=== PATIENT | female | born 1950 | race Caucasian/White ===

== ENCOUNTER 2017-11-05 12:43 | Outpatient (CLI) | payer MEDICAID, MEDICARE ==
--- NOTE | 2017-11-05 16:26 | CT ---
CT ANGIOGRAM OF NECK: Date: 11/05/17 HISTORY: Evaluate for left carotid stenosis. TECHNIQUE: CT angiogram of neck is performed in the axial plane. Three dimensional reformatted images are submit jennifer for interpretation. FINDINGS: Visualized brain parenchyma is unremarkable. Adequate aeration of the mastoid air cells. Mild mucosal thickening of the ethmoid air cells. Aerodigestive tract is patent. No mucosal abnormality. Epiglottis has a normal caliber. Preepiglottic fat is preserved. Symmetric attenuation of the parotid and submandibular glands. Unremarkable thyroi d gland. Sternocleidomastoid muscles are unremarkable. There is scattered nonspecific, nonenlarged soft tissue neck lymph nodes. Cervical spine vertebral body height is maintained. No fracture. Grossly, the central pulmonary arter ies are unremarkable. There is a bovine arch. Right Carotid: The origin of the right carotid artery is unremarkable. The right common carotid doc ry has mild atherosclerotic disease. There is atherosclerosis involving the right carotid bifurcation and proximal internal carotid artery. Mild stenosis based upon NASCET criteria. There is focal promi nence of the distal cervical right internal carotid artery with dilatation and tortuous at the level of the C1 and C2 vertebral bodies. Left Carotid: Left carotid artery origin has appropriate enhancement and luminal diameter. Left comm on carotid artery demonstrates short segment mild atherosclerotic disease. There is calcified plaque in the left carotid bifurcation and proximal internal carotid artery. No evidence of significant sten osis based upon NASCET criteria. There is calcified plaque in the distal left cervical internal carot id artery. Calcified plaque at the origin of the left vertebral artery. No significant stenosis in either cervic al vertebral artery. Additional mid calcified plaque is noted in both proximal cervical vertebral art eries. IMPRESSION: Atherosclerosis involving both carotid arteries without hemodynamically significant stenosis based up on NASCET criteria. POS: [facility]
== END 2017-11-05 12:44 | disposition home or self-care (01) ==
LOC: CT 12:43
PROVIDERS: ATTEND Thoracic Surgery (Cardiothoracic Vascular Surgery)
DX: I65.23 Occlusion and stenosis of bilateral carotid arteries (principal)
CPT/HCPCS: 70498; 82565

== ENCOUNTER 2018-10-20 10:58 | Outpatient (CLI) | payer MEDICARE, MEDICAID ==
--- NOTE | 2018-10-20 11:12 | RAD ---
XR Chest Pa Lat STANDARD HISTORY: COPD COMPARISON: 04/25/2016 study FINDINGS: Heart size within normal limits there are atherosclerotic changes of aorta chronic lung brina nges are seen. There are arthritic changes spine IMPRESSION: Chronic lung change. Stable chest.
== END 2018-10-20 10:59 | disposition home or self-care (01) ==
LOC: BICRAD 10:58
PROVIDERS: ATTEND Internal Medicine
DX: J44.9 Chronic obstructive pulmonary disease, unspecified (principal)
CPT/HCPCS: 71046

== ENCOUNTER 2018-12-29 15:47 | Observation (INO) | payer MEDICAID, MEDICARE ==
[2018-12-29 16:24] LABS: #Basophils 0.1 thou/uL (0.0-0.2); #Eosinphils 0.2 thou/uL (0.0-0.7); #Lymphocytes 2.3 thou/uL (1.20-3.40); #Monocytes 0.8 thou/uL (0.11-0.59); %Lymphocytes 24.6 % (21.0-51.0); %Monocytes 8.3 % (0.0-10.0); %Neutrophils 64.1 % (42.0-75.0); Hemoglobin 14.1 g/dL (12.0-16.0); Mean Corpuscular HGB CONC 31.3 g/dL (32.0-36.0); Mean Corpuscular Hemoglobin 29.3 pg (27.0-31.0); Mean Corpuscular Volume 93.6 fL (78.0-98.0); Mean Platelet Volume 7.1 fL (7.4-10.4); Platelet Count 242 thou/uL (130-400); RBC Distribution Width 13.1 % (11.5-14.5); Red Blood Cell (RBC) Count 4.81 mill/uL (4.20-5.40); White Blood Cell (WBC) Count 9.3 thou/uL (4.8-10.8)
--- NOTE | 2018-12-29 16:31 | RAD ---
Chest AP view INDICATION: Increasing shortness of breath COMPARISON: None FINDINGS: Lungs:There is worsening bilateral interstitial lung marking Cardiac silhouette pulmonary vasculature:There is worsening cardiomegaly and mild pulmonary vascular congestion Pleural spaces:No pleural effusion or pneumothorax is demonstrated. Upper abdomen:No abnormality seen. Osseous structures: No acute osseous abnormality. Additional findings:None. IMPRESSION: Mild cardiomegaly with mild pulmonary vascular congestion and interstitial opacities are suspicious for mild CHF
[2018-12-29 16:43] LABS: ALT (SGPT) 13 U/L (8-55); AST (SGOT) 16 U/L (5-34); Alkaline Phosphatase 87 U/L (40-150); BUN (Urea Nitrogen) 10 mg/dL (9.8-20.1); Bilirubin, Total 0.2 mg/dL (0.2-1.2); CK (CPK) 117 U/L (29-168); Calc. Creatinine Clearance 0 mL/min (70-130); Calcium 9.4 mg/dL (7.8-10.44); Estimated GFR-MDRD 83; Globulin 3.6 g/dL (2.4-3.5); Glucose 119 mg/dL (80-115); Lipase 23 U/L (8-78); Protein, Total 7.6 g/dL (6.0-8.3)
[2018-12-29 16:53] LABS: Chloride 89 mmol/L (98-107); Potassium 3.1 mmol/L (3.5-5.1); Sodium 142 mmol/L (136-145)
[2018-12-29 16:55] LABS: Anion Gap 14 mmol/L (10-20)
[2018-12-29 16:58] LABS: Carbon Dioxide 42 mmol/L (23-31)
[2018-12-29] MEDS ORDERED: methylPREDNISolone Sod Succ/PF 125 MG/2 ML VIAL ONE (17:12)
[2018-12-29] MEDS ORDERED: Potassium Chloride 20 MEQ TAB ONE (17:12)
[2018-12-29 20:25] VITALS: BMI 29.2
[2018-12-29] MEDS ORDERED: hydrALAZINE 20 MG/ML VIAL SLOW IVP PRN (22:33)
[2018-12-29] MEDS ORDERED: Benzonatate 100 MG CAP PO PRN (22:33)
[2018-12-29] MEDS ORDERED: Ondansetron PF 4 MG/2 ML Vial IVP PRN (22:33)
[2018-12-29] MEDS ORDERED: Acetaminophen 500 MG TAB PO PRN (22:33)
[2018-12-29] MEDS ORDERED: Guaifenesin DM 100-10/5 ML UDCUP PO PRN (22:33)
[2018-12-29] MEDS ORDERED: Ondansetron ODT 4 MG TAB PO PRN (22:33)
[2018-12-29] MEDS ORDERED: HumaLOG 300 UNITS/3 ML VIAL SC PRN (22:34)
[2018-12-29] MEDS ORDERED: Dextrose 5% in Water 1,000 ML IV PRN (22:34)
[2018-12-29] MEDS ORDERED: Dextrose 50% Abboject 50 ML SYRINGE SLOW IVP PRN (22:34)
[2018-12-29] MEDS: methylPREDNISolone Sod Succ 40 MG VIAL IVP SCH (23:27)
--- NOTE | 2018-12-30 01:04 | HP ---
PRIMARY CARE PROVIDER: Jeremy Quinn MD CHIEF COMPLAINT: Shortness of breath. HISTORY OF PRESENT ILLNESS: This is a 68-year-old female, who presented to [facility] Emergency Department complaining of increased shortness of breath over the last several weeks, worsening in the last 2 to 3 days. The patient with longstanding history of chronic obstructive pulmonary disease with ongoing tobacco abuse up to two packs daily. The patient states she uses home oxygen at 3 L/minute by nasal cannula, as well as use of Symbicort and DuoNeb therapy with home nebulizer. The patient noted increased shortness of breath and difficulty ambulating for any distance, becoming increasingly short of breath, needing to stop and rest. The patient was admitted to [facility] in 2016 for similar presentation with COPD exacerbation. The patient continued to use her home regimen of bronchodilator therapy and oxygen without relief of symptoms. In the emergency room, the patient underwent general evaluation including chest imaging showing chronic changes bilaterally of the lung greenberg. The patient received IV Solu-Medrol, DuoNeb, as well as potassium chloride. PAST MEDICAL HISTORY: 1. Chronic obstructive pulmonary disease. 2. Chronic hypoxic respiratory failure with home oxygen at 3 L/minute by nasal cannula. 3. Diastolic heart failure with ejection fraction of 60% to 65%. 4. Tobacco abuse ongoing. 5. Hypertension. 6. Diabetes mellitus, type 2. PAST SURGICAL HISTORY: Status post tracheostomy. CURRENT MEDICATIONS: Current medications based on previous admission and review of electronic medical record: 1. ProAir HFA 2 puffs inhaled q.6 hours p.r.n. 2. Symbicort 160/4.5 two puffs inhaled b.i.d. 3. Coreg 6.25 mg p.o. b.i.d. 4. Lasix 40 mg p.o. daily. 5. Mucinex ER 600 mg p.o. b.i.d. 6. Atrovent 2 puffs inhaled q.i.d. p.r.n. 7. Lisinopril 10 mg p.o. daily. 8. Metformin 1000 mg p.o. b.i.d. 9. Aspirin 81 mg p.o. daily. 10. Amlodipine 10 mg p.o. daily. List will need to be confirmed with the patient. ALLERGIES: TO ASPIRIN, CODEINE, AND PENICILLIN G. FAMILY HISTORY: No inheritable disease per patient report. SOCIAL HISTORY: Resides in [place], [place]. . Smokes up to two pack of cigarettes daily, greater than 30 years. No alcohol or illicit drug use. REVIEW OF SYSTEMS: CONSTITUTIONAL: Negative for weight loss or gain, ability to conduct usual activities. SKIN: Negative for rash, itching. EYES: Negative for double vision, pain. ENT/MOUTH: Negative for nose bleeding, neck stiffness, pain, tenderness. CARDIOVASCULAR: Negative for palpitations, dyspnea on exertion, orthopnea. RESPIRATORY: Negative for shortness of breath, wheezing, cough, hemoptysis, fever or night sweats. GASTROINTESTINAL: Negative for poor appetite, abdominal pain, heartburn, nausea, vomiting, constipation, or diarrhea. GENITOURINARY: Negative for urgency, frequency, dysuria, nocturia. MUSCULOSKELETAL: Negative for pain, swelling. NEUROLOGIC/PSYCHIATRIC: Negative for anxiety, depression. ALLERGY/IMMUNOLOGIC: Negative for skin rash, bleeding tendency. Otherwise negative except as stated per HPI. PHYSICAL EXAMINATION: VITAL SIGNS: On admission, blood pressure 161/80, pulse 92, respiratory rate 18, O2 saturation 97% on 4 L/minute by nasal cannula. GENERAL APPEARANCE: This is a 68-year-old female, alert and oriented x3, pleasant, in no acute distress. HEENT: Pupils are equal, round, reactive to light and accommodation. Extraocular muscles are intact. No scleral icterus. No conjunctival injection. Nares patent. OP is clear. Teeth in fair repair. Nicotine stained teeth noted. NECK: Supple. No cervical adenopathy. No thyromegaly. No carotid bruits. No JVD appreciated. Cervical spine with full active and passive range of motion. No meningeal signs noted. CHEST: Diminished breath sounds in bilateral lung greenberg with inspiratory and expiratory wheezing. Prolonged expiratory phase noted. CARDIOVASCULAR EXAM: S1-S2 with distant heart sounds. No murmur, rub, or gallop appreciated. ABDOMEN: Obese, soft, nontender, and nondistended. Bowel sounds are positive in all 4 quadrants. No palpable mass. No rebound or guarding appreciated. EXTREMITIES: Warm and dry with fair turgor. Minimal edema to the ankle region bilaterally. Pulses palpable distally at the dorsalis pedis, posterior tibial, and popliteal arteries bilaterally. Capillary refill less than 2 seconds. NEUROLOGIC: Cranial nerves 2 through 12 are grossly intact. No focal or lateralizing signs appreciated. PERTINENT LAB AND X-RAY FINDINGS: Sodium 142, potassium 3.1, chloride 89, CO2 of 42, BUN 10, creatinine 0.70, glucose 119, calcium 9.4. LFTs within normal limits. BNP 114, previously noted 188 on 04/25/2016. Troponin I negative x1. CBC showed a white blood cell count of 9.3, hemoglobin 14, hematocrit 45, platelet count 242 with normal differential. Portable chest x-ray dated 12/29/2018, showed mild pulmonary vascular prominence with chronic changes in bilateral lung greenberg. EKG dated 12/29/2018 by my interpretation shows heart rates in the 100s. Attenuated R-waves noted in the precordial leads. Premature ventricular contractions noted. Left axis deviation. ASSESSMENT AND PLAN: 1. Acute on chronic hypoxemic respiratory failure. The patient will be admitted to the medical floor. The patient's presentation consistent with chronic obstructive pulmonary disease exacerbation. We will continue oxygen support to maintain O2 saturation greater than or equal to 90%. Continue management as outlined. 2. Chronic obstructive pulmonary disease exacerbation. Continue Solu-Medrol 40 mg IV q.6 hours with additional DuoNeb q.4 hours. Add Levaquin 750 mg IV q.24 hours. Resume Symbicort 160/4.5 two puffs inhaled b.i.d. 3. Tobacco abuse. Smoking cessation resources prior to discharge. 4. Diabetes mellitus type 2. Confirm home oral hypoglycemic regimen. Insulin sliding scale for reflexive coverage. Serial Accu-Cheks before meals and at bedtime. 5. Hypertension. Resume home blood pressure regimen once confirmed. Hydralazine p.r.n. systolic greater than or equal to 170. 6. Prophylaxis. SCDs while in bed. Pepcid 20 mg p.o. b.i.d. Pneumonia vaccination prior to discharge. 7. Code status is full. Surrogate medical decision maker is the patient's spouse. Job ID: [id number]
[2018-12-30] MEDS: HumaLOG 300 UNITS/3 ML VIAL SC PRN ×3 (05:02→18:04)
[2018-12-30] MEDS: methylPREDNISolone Sod Succ 40 MG VIAL IVP SCH ×3 (05:03→18:04)
[2018-12-30 05:41] LABS: Anion Gap 12 mmol/L (10-20); BUN (Urea Nitrogen) 10 mg/dL (9.8-20.1); Calc. Creatinine Clearance 102 mL/min (70-130); Calcium 9.1 mg/dL (7.8-10.44); Carbon Dioxide 34 mmol/L (23-31); Chloride 95 mmol/L (98-107); Estimated GFR-MDRD Greater than 90; Glucose 158 mg/dL (80-115); Potassium 4.1 mmol/L (3.5-5.1); Sodium 137 mmol/L (136-145)
[2018-12-30 05:54] LABS: Band 2 % (5-11); Hemoglobin 13.7 g/dL (12.0-16.0); Hypochromia SLIGHT = 6-15 cells (100X) (0-5/hpf); Lymphocytes 10 % (21-51); MDiff Complete? YES; Mean Corpuscular HGB CONC 29.8 g/dL (32.0-36.0); Mean Corpuscular Hemoglobin 27.9 pg (27.0-31.0); Mean Corpuscular Volume 93.7 fL (78.0-98.0); Mean Platelet Volume 7.5 fL (7.4-10.4); Monocytes 3 % (0-10); Neutrophil 85 % (42-75); Platelet Count 217 thou/uL (130-400); Platelet Morphology Comment Appears Adequate; Red Blood Cell (RBC) Count 4.92 mill/uL (4.20-5.40); White Blood Cell (WBC) Count 6.3 thou/uL (4.8-10.8)
[2018-12-30] MEDS: Mometasone/Formoterol 120 PUFF INHALER INH SCH ×2 (06:41→19:08)
[2018-12-30] MEDS ORDERED: metFORMIN 500 MG TAB PO SCH (08:00)
[2018-12-30] MEDS ORDERED: Carvedilol 6.25 MG TAB PO SCH (08:00)
[2018-12-30] MEDS: guaiFENesin ER 600 MG TAB PO SCH ×2 (08:47→21:17)
[2018-12-30] MEDS: Furosemide 40 MG TAB PO SCH (08:47)
[2018-12-30] MEDS: Famotidine 20 MG TAB PO SCH ×2 (08:48→21:17)
[2018-12-30] MEDS ORDERED: Lisinopril 10 MG TAB PO SCH (09:00)
[2018-12-30] MEDS ORDERED: Prevnar 13-Val Conj/PF 0.5 ML SYRINGE IM ONE (09:00)
--- NOTE | 2018-12-30 17:40 | PDOC.PN ---
- Subjective Encounter Start Date: 12/30/18 Encounter Start Time: 14:00 Subjective: Patient examined, sitting in the bed -: Patient reports dyspnea after getting back into bed -: - she had gotten up to use the BR, denies new complaints - Objective Resuscitation Status - Order Detail: 12/29/18 22:28 Resuscitation Status Routine Resuscitation Status: FULL: Full Resuscitation Vital Signs & Weight: Vital Signs (12 hours) Temp Pulse Resp BP BP Pulse Ox 12/30/18 16:00 97.3 F L 75 16 151/69 H 97 12/30/18 14:00 79 16 97 12/30/18 11:15 98.5 F 78 18 147/75 H 93 L 12/30/18 10:15 77 18 98 12/30/18 08:47 150/71 H 12/30/18 07:53 98.5 F 83 16 150/71 H 95 12/30/18 06:44 95 12/30/18 06:43 92 16 95 12/30/18 06:41 92 16 95 Weight Weight 74.843 kg I&O: 12/29/18 12/30/18 12/31/18 06:59 06:59 06:59 Intake Total 882 320 Balance 882 320 Result Diagrams: 12/30/18 04:48 12/30/18 04:48 Additional Labs: Accuchecks 12/30/18 12/30/18 12/30/18 16:17 11:17 03:19 POC Glucose 213 H 173 H 162 H 12/29/18 23:45 POC Glucose 268 H Phys Exam - Physical Examination HEENT: PERRLA, moist MMs Neck: no nodes Respiratory: wheezing present breath sounds diminished Cardiovascular: RRR Gastrointestinal: soft, non-tender Musculoskeletal: no edema, pulses present Neurological: normal sensation Lymphatic: no nodes Psychiatric: normal affect, A&O x 3 Skin: cap refill <2 seconds Dx/Plan (1) Acute on chronic diastolic (congestive) heart failure Code(s): I50.33 - ACUTE ON CHRONIC DIASTOLIC (CONGESTIVE) HEART FAILURE Status : Acute (2) COPD exacerbation Code(s): J44.1 - CHRONIC OBSTRUCTIVE PULMONARY DISEASE W (ACUTE) EXACERBATION Status: Acute (3) DM type 2 (diabetes mellitus, type 2) Status: Chronic (4) HTN (hypertension) Code(s): I10 - ESSENTIAL (PRIMARY) HYPERTENSION Status: Chronic - Plan cont current plan of care, continue antibiotics, respiratory therapy, out of bed /ambulate Continue nebs, steroids, lasix, O2 -: Increased need for O2 to keep Sats above 90 -: Will recheck labs in AM -: Continue to monitor * .
[2018-12-30] MEDS ORDERED: Aspirin 81 mg Enteric Coated Tablet PO SCH (21:00)
[2018-12-30] MEDS: Aspirin Chewable 81 MG TAB PO SCH (21:17)
[2018-12-30] MEDS: Lisinopril 20 MG TAB PO SCH (21:18)
[2018-12-31] MEDS: methylPREDNISolone Sod Succ 40 MG VIAL IVP SCH ×3 (00:31→11:57)
[2018-12-31] MEDS: Mometasone/Formoterol 120 PUFF INHALER INH SCH (06:31)
[2018-12-31] MEDS: Lisinopril 20 MG TAB PO SCH (08:05)
[2018-12-31] MEDS: Furosemide 40 MG TAB PO SCH (08:05)
[2018-12-31] MEDS: Aspirin Chewable 81 MG TAB PO SCH (08:05)
[2018-12-31] MEDS: Famotidine 20 MG TAB PO SCH (08:05)
[2018-12-31] MEDS: guaiFENesin ER 600 MG TAB PO SCH (08:05)
[2018-12-31] MEDS ORDERED: Amlodipine 10 MG TAB PO SCH (09:00)
[2018-12-31] MEDS ORDERED: Spiriva 18 MCG CAP (Box of 5 Caps) INH SCH (09:00)
[2018-12-31 11:59] VITALS: BP 133/68; TEMP 98.5
--- NOTE | 2019-01-01 13:04 | EKG ---
Test Reason : Blood Pressure : / mmHG Vent. Rate : 100 BPM Atrial Rate : 100 BPM P-R Int : 150 ms QRS Dur : 088 ms QT Int : 368 ms P-R-T Axes : 059 -06 053 degrees QTc Int : 474 ms Sinus rhythm with frequent , and consecutive Premature ventricular complexes Septal infarct , age undetermined Abnormal ECG Confirmed by KYRA HUNTER, MACHELLE Reyes ([id number]), assignment desk editor MICKEY BABB ([id number]) on 01/01/2019 1:03:58 PM Referred By: Confirmed By:MACHELLE RAE MD
== END 2018-12-31 14:20 | disposition home or self-care (01) ==
LOC: ERS 15:47 → T4-A 17:26
PROVIDERS: ADMIT Internal Medicine; ATTEND Internal Medicine
DX: J44.1 Chronic obstructive pulmonary disease with (acute) exacerbation (principal); J96.21 Acute and chronic respiratory failure with hypoxia; I11.0 Hypertensive heart disease with heart failure; I50.30 Unspecified diastolic (congestive) heart failure; F17.210 Nicotine dependence, cigarettes, uncomplicated; Z79.84 Long term (current) use of oral hypoglycemic drugs; Z79.899 Other long term (current) drug therapy; Z88.0 Allergy status to penicillin; Z88.5 Allergy status to narcotic agent; Z88.8 Allergy status to other drugs, medicaments and biological substances; Z99.81 Dependence on supplemental oxygen
CPT/HCPCS: 71045; 80048; 80053; 82550; 82962 ×3; 83690; 83880; 84484; 85007; 85025; 85027; 93005; 94640 ×7; 94760; 96365; 96366; 96375; 96376 ×3; 99285; 99406; G0378 ×4; 36415; 36416; 90471; 90670; 96374; G0009; J1956; J2920; J2930; J7620

== ENCOUNTER 2019-02-27 17:44 | Inpatient (IN) | payer MEDICARE ==
[2019-02-27] MEDS ORDERED: Albuterol Sulfate 2.5 mg/3 ml Neb ONE (18:05)
--- NOTE | 2019-02-27 18:14 | RAD ---
PORTABLE CHEST: History: Shortness of breath. Comparison: 12-29-18 FINDINGS: Heart size is within normal limits. There are atherosclerotic changes of the aorta. Chronic lung thompson ges are seen. No acute process. IMPRESSION: Chronic lung change. POS: [facility]
[2019-02-27 18:19] LABS: Actual Bicarbonate (HCO3a) 40.4 mEq/L (22-28); Analyzer IN Cardio ER; Base Excess (BEa) 12.6 mEq/L (-2.0 to +3.0); Calcium, Ionized 1.12 mmol/L (1.12-1.30); Carboxyhemoglobin (COHb) 5.1 gm% (0.0-3.0); Hemoglobin (Hb) 13.9 g/dL (12.0-16.0); Potassium - ABG Lab 3.14 mmol/L (3.70-5.30)
[2019-02-27 18:19] LABS: #Basophils 0.1 thou/uL (0.0-0.2); #Eosinphils 0.1 thou/uL (0.0-0.7); #Lymphocytes 2.8 thou/uL (1.20-3.40); #Monocytes 0.8 thou/uL (0.11-0.59); #Neutrophils 4.7 thou/uL (1.40-6.50); %Basophils 1.1 % (0.0-1.0); %Eosinophils 1.6 % (0.0-10.0); %Monocytes 9.8 % (0.0-10.0); %Neutrophils 54.5 % (42.0-75.0); Mean Corpuscular HGB CONC 32.2 g/dL (32.0-36.0); Mean Corpuscular Hemoglobin 28.9 pg (27.0-31.0); Mean Corpuscular Volume 89.8 fL (78.0-98.0); Platelet Count 235 thou/uL (130-400); Red Blood Cell (RBC) Count 4.83 mill/uL (4.20-5.40); White Blood Cell (WBC) Count 8.6 thou/uL (4.8-10.8)
[2019-02-27] MEDS ORDERED: Dexamethasone 4 mg/ml Vial ONE (18:20)
[2019-02-27] MEDS ORDERED: Magnesium 2 GM/50 ML BAG (IN WATER) ONE (18:20)
[2019-02-27 18:30] LABS: CO2 Tension 66.1 mmHg (35.0-45.0)
[2019-02-27 18:31] LABS: ALV-art Gradient 61.515 (0-20); O2 Tension (PaO2) 55.5 mmHg (> 80.0); Puncture Site LRA
[2019-02-27 18:40] LABS: ALT (SGPT) 14 U/L (8-55); AST (SGOT) 16 U/L (5-34); Albumin 4.1 g/dL (3.4-4.8); Alkaline Phosphatase 79 U/L (40-150); BUN (Urea Nitrogen) 10 mg/dL (9.8-20.1); Bilirubin, Total 0.2 mg/dL (0.2-1.2); CK (CPK) 84 U/L (29-168); Calc. Creatinine Clearance 0 mL/min (70-130); Calcium 9.5 mg/dL (7.8-10.44); Estimated GFR-MDRD 75; Globulin 3.4 g/dL (2.4-3.5); Glucose 124 mg/dL (80-115); Lipase 18 U/L (8-78); Protein, Total 7.5 g/dL (6.0-8.3)
[2019-02-27 18:51] LABS: Anion Gap 16 mmol/L (10-20); Carbon Dioxide 37 mmol/L (23-31); Chloride 93 mmol/L (98-107); Potassium 3.2 mmol/L (3.5-5.1); Sodium 143 mmol/L (136-145)
[2019-02-27 19:22] LABS: Bilirubin Negative (Negative); Blood, Urine Negative (Negative); Clarity Clear (Clear); Glucose, Urine (Dipstick) Normal (Negative); Leukocyte Negative Leu/uL (Negative); Nitrite Negative (Negative); Protein, Urine (Dipstick) 50 mg/dL (Neg-Trace); RBC/HPF 0-3 HPF (0-3); Squamous Epithelial 0-3 HPF (0-3); Urobilinogen Normal mg/dL (Less than 2); WBC/HPF 0-3 HPF (0-3)
[2019-02-27 19:23] LABS: Bacteria/HPF None Seen HPF (None Seen)
[2019-02-27] MEDS ORDERED: Potassium Chloride 20 MEQ TAB PO SCH (20:00)
[2019-02-27] MEDS ORDERED: Bacteriostatic Water 30 ML VIAL FS PRN (20:11)
[2019-02-27 22:41] VITALS: BMI 29.5
[2019-02-27] MEDS: methylPREDNISolone Sod Succ 40 MG VIAL IVP SCH (23:05)
--- NOTE | 2019-02-27 23:30 | PDOC.EVN ---
Event Note - Event Note Event Note: [id number] H&P dictated
--- NOTE | 2019-02-28 00:27 | HP ---
CHIEF COMPLAINT: Shortness of breath. HISTORY OF PRESENT ILLNESS: Ms. Acosta is a 69-year-old female with past medical history of COPD, chronic respiratory failure, on home oxygen 3 L/minute, presents to the emergency room with shortness of breath for the last 2 weeks, it got worse today. Shortness of breath is worse with any minimal exertion. The patient was walking from the parking lot. Her oxygen saturation was 62% in triage. Denies fevers, chills. Chest x-ray, no acute findings. In the emergency room, the patient was started on breathing treatments, given IV steroids. Chest x-ray, no acute findings. The patient is being admitted to the hospital for further management. PAST MEDICAL HISTORY: 1. Chronic respiratory failure, on home oxygen. 2. Hypertension. 3. Diabetes mellitus. 4. Hyperlipidemia. 5. Congestive heart failure. PAST SURGICAL HISTORY: Tracheostomy, which was removed. SOCIAL HISTORY: The patient smokes half pack a day. Denies alcohol drinking. ALLERGIES: ALLERGIC TO PENICILLIN, CODEINE, ASPIRIN. HOME MEDICATIONS: Please see home medication reconciliation form for updated medications. FAMILY HISTORY: Reviewed and noncontributory. REVIEW OF SYSTEMS: Review of 14 systems negative except what is mentioned in history of present illness. PHYSICAL EXAMINATION: GENERAL: The patient is awake, alert, in mild respiratory distress. VITAL SIGNS: Blood pressure 150/70, pulse is 96, respiratory rate is 22, temperature is 98.1, pulse oximetry is 93% on 3 L/minute nasal cannula. HEAD: Normocephalic, atraumatic. NECK: Supple. No JVD. CHEST: Decreased air entry bilaterally. HEART: S1, S2. Regular. ABDOMEN: Obese, soft. Bowel sounds present. NEUROLOGIC: Awake, alert, oriented x3. PSYCHIATRIC: Normal mood. EXTREMITIES: No clubbing, or cyanosis. LABORATORY DATA: CBC unremarkable. Electrolytes; potassium 3.2, otherwise unremarkable. ABG showed a pH of 7.40, pCO2 is elevated at 66.1, PO2 is low at 55.5 on 2 L/minute nasal cannula. Chest x-ray, chronic changes, no acute findings. ASSESSMENT: Ms. Acosta is a 69-year-old female with history of COPD, chronic respiratory failure, on home oxygen, presented to the emergency room with worsening shortness of breath and oxygen desaturation. 1. Acute over chronic respiratory failure. 2. Chronic obstructive pulmonary disease with exacerbation. 3. Hypertension. 4. Cigarette smoker. 5. Diabetes. 6. Acute hypokalemia. PLAN: 1. Admit. 2. Oxygen to keep saturation more than 92%. 3. Bronchodilators scheduled and as needed. 4. IV steroids. 5. Empiric IV antibiotics. 6. Replace potassium. 7. Reconcile home medications. 8. DVT prophylaxis, SCDs/early ambulation. 9. Expected length of stay at least 1 midnight if patient is stable and show significant clinical improvement. Job ID: [id number]
[2019-02-28] MEDS: methylPREDNISolone Sod Succ 40 MG VIAL IVP SCH ×4 (04:00→21:03)
[2019-02-28] MEDS ORDERED: Prevnar 13-Val Conj/PF 0.5 ML SYRINGE IM ONE (09:00)
--- NOTE | 2019-02-28 13:52 | PDOC.HOSPP ---
- Subjective Subjective: Seen and examined. Breathing better. Still filling short of breath. Was able to walk a little bit around the unit. Denies chest pain. No palpitations. Denies fever, chills. Cough persists. Patient states that overall she is improving. - Objective Vital Signs & Weight: Vital Signs (12 hours) Temp Pulse Resp BP Pulse Ox 02/28/19 13:08 75 18 95 02/28/19 11:48 98.6 F 84 20 136/72 92 L 02/28/19 08:59 98.9 F 104 H 20 120/65 91 L 02/28/19 06:16 84 24 H 96 02/28/19 04:09 98.1 F 88 16 130/73 92 L Weight Weight 166 lb 9 oz I&O: 02/27/19 02/28/19 03/01/19 06:59 06:59 06:59 Intake Total 820 Balance 820 Result Diagrams: 02/27/19 18:00 02/27/19 18:00 Additional Labs: Accuchecks 02/28/19 04:11 POC Glucose 171 H Hospitalist ROS - Review of Systems All other systems reviewed; all pertinent +/- noted in HPI/Subj - Medication Medications: Active Medications Generic Name Dose Route Start Last Admin Trade Name Freq PRN Reason Stop Dose Admin Albuterol/Ipratropium 3 ml 02/28/19 01:00 02/28/19 13:08 Duoneb NEB 3 ml [id number] AFSANEH Administration Doxycycline Hyclate 100 mg/ 100 mls @ 100 mls/hr 02/27/19 21:00 02/28/19 09: 51 Sodium Chloride IVPB 100 mls Q12HR AFSANEH Administration Methylprednisolone Sodium Succinate 40 mg 02/27/19 21:00 02/28/19 08:54 Solu-Medrol IVP 40 mg 0300,0900,1500,2100 AFSANEH Administration - Exam General Appearance: awake alert, ill appearing Eye: PERRL, anicteric sclera ENT: normocephalic atraumatic, moist mucosa Neck: supple, symmetric Heart: no murmur, no gallops, no rubs Respiratory: no rales, normal chest expansion, rhonchi, tachypneic, wheezes Respiratory - other findings: Poor air movement Gastrointestinal: soft, non-tender, non-distended, no guarding, no rigidity Extremities: no cyanosis, no clubbing Skin: no lesions, no rashes Neurological: no focal deficits, no new deficit Musculoskeletal: generalized weakness Psychiatric: normal affect, A&O x 3 Hosp A/P (1) Acute on chronic diastolic (congestive) heart failure Code(s): I50.33 - ACUTE ON CHRONIC DIASTOLIC (CONGESTIVE) HEART FAILURE Status : Acute (2) COPD exacerbation Code(s): J44.1 - CHRONIC OBSTRUCTIVE PULMONARY DISEASE W (ACUTE) EXACERBATION Status: Acute (3) DM type 2 (diabetes mellitus, type 2) Status: Chronic - Plan Plan: medical/surgical unit IV antibiotics IV steroids Duo nebs as needed for shortness of breath ABG with chronic CO2 retention Supplemental oxygen to maintain O2 sat greater than 88% Start home medications as able replace electrolytes as needed physical therapy/occupational therapy evaluation and treatment
[2019-02-28] MEDS ORDERED: Cilostazol 100 MG TAB PO SCH (21:00)
[2019-02-28] MEDS: Lisinopril 20 MG TAB PO SCH (21:03)
[2019-03-01] MEDS: methylPREDNISolone Sod Succ 40 MG VIAL IVP SCH ×2 (02:51→07:57)
[2019-03-01 04:52] LABS: #Eosinphils 0.1 thou/uL (0.0-0.7); #Monocytes 0.4 thou/uL (0.11-0.59); #Neutrophils 9.8 thou/uL (1.40-6.50); %Basophils 0.1 % (0.0-1.0); %Eosinophils 0.5 % (0.0-10.0); %Lymphocytes 9.3 % (21.0-51.0); %Monocytes 3.2 % (0.0-10.0); Mean Corpuscular HGB CONC 31.9 g/dL (32.0-36.0); Mean Corpuscular Hemoglobin 28.3 pg (27.0-31.0); Mean Corpuscular Volume 88.7 fL (78.0-98.0); Mean Platelet Volume 7.3 fL (7.4-10.4); Platelet Count 209 thou/uL (130-400); Red Blood Cell (RBC) Count 4.93 mill/uL (4.20-5.40); White Blood Cell (WBC) Count 11.2 thou/uL (4.8-10.8)
[2019-03-01 05:11] LABS: Anion Gap 11 mmol/L (10-20); BUN (Urea Nitrogen) 11 mg/dL (9.8-20.1); Calc. Creatinine Clearance 97 mL/min (70-130); Carbon Dioxide 29 mmol/L (23-31); Chloride 103 mmol/L (98-107); Estimated GFR-MDRD 89; Glucose 164 mg/dL (80-115); Potassium 4.8 mmol/L (3.5-5.1); Sodium 138 mmol/L (136-145)
[2019-03-01 07:29] VITALS: BP 152/80; TEMP 99.3
[2019-03-01] MEDS ORDERED: Furosemide 40 MG TAB PO SCH (07:30)
[2019-03-01] MEDS: Lisinopril 20 MG TAB PO SCH (07:57)
[2019-03-01] MEDS ORDERED: Amlodipine 10 MG TAB PO SCH (09:00)
--- NOTE | 2019-03-01 10:39 | DIS ---
DATE OF ADMISSION: 02/27/2019 DATE OF DISCHARGE: 03/01/2019 [facility] CHIEF COMPLAINT/REASON FOR ADMISSION: Shortness of breath. PRINCIPAL DIAGNOSIS ON ADMISSION: Acute on chronic respiratory failure, hypoxic , and hypercapnic. DISCHARGE DIAGNOSES: 1. Acute on chronic respiratory failure, hypoxic, hypercapnic (pCO2 on admission 66, pO2 of 55, peripheral oxygen saturation 62% on ER triage). 2. Chronic obstructive pulmonary disease with acute exacerbation, no evidence of acute infiltrate or pneumonia. 3. Essential hypertension. 4. Tobacco dependence, ongoing. 5. Type 2 diabetes. 6. Hypokalemia, repleted. HOSPITAL COURSE: Ms. Acosta is a 69-year-old female, with a past medical history of COPD as well as ongoing tobacco dependence as well as chronic respiratory failure, on home oxygen 3 L/minute at baseline. She presented with worsening dyspnea for 2 weeks prior to admission, with abrupt interval worsening on the day of admission. Oxygen saturation documented 62% in ER triage. No fever/chills. Chest x-ray without evidence of acute infiltrate. ABG notable for pH of 7.4, pCO2 of 66.1, and pO2 of 55.5 on 2 L oxygen at the time of this study. She was placed in the hospital for additional evaluation and care. Ms. Acosta received empiric antibiotics, steroids, nebulizers, and supportive care. Her clinical condition has improved, presently at baseline, with 3 L oxygen per nasal cannula. She is presently ambulating outside of the hospital to smoke during her hospitalization. She will be transitioned from IV to oral steroids, will complete a course of oral doxycycline, and will transition to the care for the outpatient setting. She has a previously scheduled followup appointment within the next 2 weeks at [facility]. PHYSICAL EXAMINATION: GENERAL: On the day of discharge, the patient seen and evaluated by me. We discussed the importance of tobacco cessation. She is speaking in full sentences and appears unlabored. LUNGS: Distant, but with fair aeration, some occasional expiratory wheezes in the right mid lung zone. HEART: Regular rate and rhythm. EXTREMITIES: She has no significant lower extremity edema. MEDICATIONS AT DISCHARGE: As follows; 1. Doxycycline 100 mg p.o. twice daily for 5 days, prescription provided. 2. Prednisone 10 mg prescription with instructions for 2 tablets p.o. daily for 2 days, then one tablet p.o. daily for 2 days, then stop. 3. Amlodipine 10 mg p.o. once daily. 4. Cilostazol 100 mg p.o. at bedtime. 5. Furosemide 40 mg p.o. daily. 6. Lisinopril 20 mg p.o. twice daily. 7. Albuterol sulfate nebulizer 2.5 mg neb q.6 hours p.r.n. shortness of breath. 8. ProAir HFA 2 puffs q.6 hours p.r.n. shortness of breath. 9. Aspirin 81 mg p.o. once daily. 10. Glipizide 2.5 mg p.o. once daily. 11. Spiriva 18 mcg inhaled once daily. DIET: Diabetic. ACTIVITY: As tolerated. FOLLOWUP: Follow up at [facility], [place], has previously scheduled followup appointment. TIME SPENT: Total time spent on care in discharge today is 40 minutes. Job ID: [id number] MTDD
--- NOTE | 2019-03-03 07:07 | PQF ---
ROMELDAVID Ness MONA BUSTOS [id number] CLINICAL DOCUMENTATION CLARIFICATION FORM: POST DISCHARGE Addendum to original discharge summary date: ____ Late entry note date: __ DATE:03-03-2019 ATTN:Mona Spann Please exercise your independent, professional judgment in responding to the clarification form. Clinical indicators are provided on the bottom of this form for your review Can you please specify whether Acute on chronic diastolic CHF is ruled in or ruled out during this encounter? Please check appropriate box(s) to clarify if the following diagnosis has been ruled in or ruled out: Acute on chronic diastolic CHF [ ] Ruled in diagnosis [ ] Continue to treat [ ] Resolved [ ] Ruled out diagnosis [ ] Cannot rule out diagnosis [ ] Other diagnosis [ ] Unable to determine In addition, please specify: Present on Admission (POA): [ ] Yes [ ] No [ ] Unable to determine For continuity of documentation, please document condition throughout progress notes and discharge summary. Thank You. CLINICAL INDICATORS: -Hospitalist PN p 03/01 Dr. Bustos Acute on chronic diastolic heart failure -Laboratory Chemistry 02/27 BNP 137.2 -H&P p1 02/27 Dr. Fuentes-Alychest x-ray, no acute findings -H&P p2 02/27 Dr. Fuentes-Alyacute hypokalemia RISK FACTORS: DS 03/01 Dr. Bustos-Hypertension DS 03/01 Dr. Bustos-COPD DS 03/01 Dr. Bustos-Acute on Chronic Respiratory Failure TREATMENTS: Mar 03/01- IV lasix Imaging- Chest Xray (This form is maintained as a part of the permanent medical record) 2014 [employer]. All Rights Reserved Linda [not provided] MTDD
--- NOTE | 2019-03-05 12:00 | EKG ---
Test Reason : Blood Pressure : / mmHG Vent. Rate : 095 BPM Atrial Rate : 095 BPM P-R Int : 162 ms QRS Dur : 084 ms QT Int : 376 ms P-R-T Axes : 051 -09 053 degrees QTc Int : 472 ms Sinus rhythm with sinus arrhythmia with frequent Premature ventricular complexes Septal infarct , age undetermined Abnormal ECG Confirmed by JIMMY HUNTER, CLAU (12), metropolitan editor MICKEY BABB ([id number]) on 03/05/2019 11:59:40 AM Referred By: Confirmed By:CLAU MARQUEZ MD
== END 2019-03-01 10:53 | disposition home or self-care (01) | DRG 189 ==
LOC: ERS 17:44 → T4-A 18:43
PROVIDERS: ADMIT Internal Medicine; ATTEND Internal Medicine
PROC: 3E0234Z Introduction of Serum, Toxoid and Vaccine into Muscle, Percutaneous Approach (ICD-10-PCS; principal; 2019-02-27)
DX: J96.21 Acute and chronic respiratory failure with hypoxia (principal); J44.1 Chronic obstructive pulmonary disease with (acute) exacerbation; J96.22 Acute and chronic respiratory failure with hypercapnia; F17.210 Nicotine dependence, cigarettes, uncomplicated; E87.6 Hypokalemia; E78.5 Hyperlipidemia, unspecified; I50.9 Heart failure, unspecified; E11.9 Type 2 diabetes mellitus without complications; I11.0 Hypertensive heart disease with heart failure; Z88.0 Allergy status to penicillin; Z99.81 Dependence on supplemental oxygen; Z23 Encounter for immunization; Z88.5 Allergy status to narcotic agent; Z88.8 Allergy status to other drugs, medicaments and biological substances
CPT/HCPCS: 36415; 36416; 71045; 80048; 80053; 81003; 81015; 82550; 82805; 83605; 83690; 83880; 84484; 85025; 87040; 87077; 90471; 90670; 93005; 94640; 94760; 96365; 96366; 96367; 96375; G0009; J1100; J1956; J2920; J3475; J3490; J7611; J7620

== ENCOUNTER 2019-03-24 08:55 | Emergency (ER) | payer MEDICARE ==
[2019-03-24 09:31] LABS: Actual Bicarbonate (HCO3a) 35.7 mEq/L (22-28); Analyzer IN Cardio ER; Base Excess (BEa) 7.2 mEq/L (-2.0 to +3.0); Calcium, Ionized 1.15 mmol/L (1.12-1.30); Carboxyhemoglobin (COHb) 2.2 gm% (0.0-3.0); Hemoglobin (Hb) 13.9 g/dL (12.0-16.0); O2 Tension (PaO2) 68.4 mmHg (> 80.0); Potassium - ABG Lab 3.72 mmol/L (3.70-5.30); pH, Arterial 7.33 (7.35-7.45)
[2019-03-24 09:33] LABS: CO2 Tension 69.8 mmHg (35.0-45.0)
[2019-03-24 09:34] LABS: Puncture Site L.R.
[2019-03-24 09:34] LABS: #Eosinphils 0.1 thou/uL (0.0-0.7); #Monocytes 0.4 thou/uL (0.11-0.59); #Neutrophils 3.7 thou/uL (1.40-6.50); %Basophils 0.8 % (0.0-1.0); %Lymphocytes 31.8 % (21.0-51.0); %Neutrophils 59.4 % (42.0-75.0); Mean Corpuscular HGB CONC 31.3 g/dL (32.0-36.0); Mean Corpuscular Hemoglobin 27.8 pg (27.0-31.0); Mean Corpuscular Volume 88.9 fL (78.0-98.0); Mean Platelet Volume 6.9 fL (7.4-10.4); Platelet Count 271 thou/uL (130-400); RBC Distribution Width 14.5 % (11.5-14.5); Red Blood Cell (RBC) Count 5.04 mill/uL (4.20-5.40); White Blood Cell (WBC) Count 6.2 thou/uL (4.8-10.8)
--- NOTE | 2019-03-24 09:37 | RAD ---
EXAM: Chest one view: HISTORY: Dyspnea COMPARISON: 02/27/2019 FINDINGS: Heart size: Within normal limits. Lungs: Clear of acute process. No evidence for pneumonia, pleural effusion, acute edema, or pneumothorax, or other significant acute process. IMPRESSION: No significant acute intrathoracic disease. Stable exam.
[2019-03-24 09:56] LABS: ALT (SGPT) 12 U/L (8-55); AST (SGOT) 16 U/L (5-34); Albumin 3.9 g/dL (3.4-4.8); Alkaline Phosphatase 82 U/L (40-110); Anion Gap 12 mmol/L (10-20); BUN (Urea Nitrogen) 8 mg/dL (9.8-20.1); Bilirubin, Total 0.2 mg/dL (0.2-1.2); Calc. Creatinine Clearance 0 mL/min (70-130); Calcium 9.3 mg/dL (7.8-10.44); Carbon Dioxide 37 mmol/L (23-31); Chloride 93 mmol/L (98-107); Estimated GFR-MDRD 78; Globulin 3.1 g/dL (2.4-3.5); Glucose 186 mg/dL (80-115); Potassium 4.2 mmol/L (3.5-5.1); Sodium 138 mmol/L (136-145)
== END 2019-03-24 12:10 | disposition home or self-care (01) ==
LOC: ERS 08:55
DX: J44.1 Chronic obstructive pulmonary disease with (acute) exacerbation (principal); E11.9 Type 2 diabetes mellitus without complications; I11.0 Hypertensive heart disease with heart failure; I50.9 Heart failure, unspecified; F17.210 Nicotine dependence, cigarettes, uncomplicated; Z79.899 Other long term (current) drug therapy
CPT/HCPCS: 71045; 80053; 82805; 83880; 84484; 85025; 87040; 93005

== ENCOUNTER 2019-03-31 11:55 | Inpatient (IN) | payer MEDICARE ==
[2019-03-31] MEDS ORDERED: methylPREDNISolone Sod Succ/PF 125 MG/2 ML VIAL ONE (12:40)
[2019-03-31] MEDS ORDERED: Magnesium 2 GM/50 ML BAG (IN WATER) ONE (12:40)
[2019-03-31 12:41] LABS: #Basophils 0.1 thou/uL (0.0-0.2); #Eosinphils 0.1 thou/uL (0.0-0.7); #Lymphocytes 2.3 thou/uL (1.20-3.40); #Monocytes 0.8 thou/uL (0.11-0.59); #Neutrophils 8.6 thou/uL (1.40-6.50); %Basophils 0.9 % (0.0-1.0); %Eosinophils 0.6 % (0.0-10.0); %Lymphocytes 19.2 % (21.0-51.0); %Neutrophils 72.2 % (42.0-75.0); Hemoglobin 14.2 g/dL (12.0-16.0); Mean Corpuscular HGB CONC 31.7 g/dL (32.0-36.0); Mean Corpuscular Hemoglobin 28.4 pg (27.0-31.0); Mean Corpuscular Volume 89.5 fL (78.0-98.0); Mean Platelet Volume 7.2 fL (7.4-10.4); Platelet Count 249 thou/uL (130-400); RBC Distribution Width 14.6 % (11.5-14.5); Red Blood Cell (RBC) Count 4.99 mill/uL (4.20-5.40); White Blood Cell (WBC) Count 11.9 thou/uL (4.8-10.8)
[2019-03-31 13:10] LABS: ALT (SGPT) 15 U/L (8-55); AST (SGOT) 13 U/L (5-34); Albumin 3.8 g/dL (3.4-4.8); Alkaline Phosphatase 70 U/L (40-110); BUN (Urea Nitrogen) 16 mg/dL (9.8-20.1); Bilirubin, Total 0.3 mg/dL (0.2-1.2); Calc. Creatinine Clearance 0 mL/min (70-130); Calcium 10.1 mg/dL (7.8-10.44); Estimated GFR-MDRD 73; Glucose 173 mg/dL (80-115); Protein, Total 6.8 g/dL (6.0-8.3)
[2019-03-31 13:19] LABS: Anion Gap 21 mmol/L (10-20); Carbon Dioxide 34 mmol/L (23-31); Chloride 90 mmol/L (98-107); Potassium 3.5 mmol/L (3.5-5.1); Sodium 141 mmol/L (136-145)
--- NOTE | 2019-03-31 13:27 | RAD ---
EXAM: Single view of the chest HISTORY: Dyspnea COMPARISON: 03/24/2019 FINDINGS: Single view of the chest shows a normal sized cardiomediastinal silhouette. There is no yarely dence of consolidation, mass, or pleural effusion. The bones are unremarkable. IMPRESSION: No evidence of acute cardiopulmonary disease
[2019-03-31] MEDS ORDERED: Dextrose 50% Abboject 50 ML SYRINGE SLOW IVP PRN (14:43)
[2019-03-31] MEDS ORDERED: Dextrose 5% in Water 1,000 ML IV PRN (14:43)
[2019-03-31] MEDS ORDERED: Acetaminophen 325 MG TAB PO PRN (17:31)
[2019-03-31] MEDS ORDERED: Ondansetron PF 4 MG/2 ML Vial IVP PRN (17:31)
[2019-03-31 17:40] VITALS: BMI 25.4
[2019-03-31] MEDS: methylPREDNISolone Sod Succ 40 MG VIAL IVP SCH ×2 (17:49→23:33)
[2019-03-31] MEDS: Sodium Chloride 0.9% 1,000 ML IV SCH (17:49)
[2019-03-31] MEDS: HumaLOG 300 UNITS/3 ML VIAL SC PRN (18:02)
[2019-03-31] MEDS: Famotidine 20 MG TAB PO SCH (20:22)
[2019-03-31] MEDS ORDERED: HumaLOG 300 UNITS/3 ML VIAL SC PRN (20:33)
--- NOTE | 2019-03-31 20:43 | HP ---
CHIEF COMPLAINT: Shortness of breath. HISTORY OF PRESENT ILLNESS: The patient is a 69-year-old female, who presented to the emergency room for evaluation of her shortness of breath. She has a history of COPD and she is on oxygen at home, 3 L by nasal cannula. Also, she has a history of CHF, hypertension, diabetes mellitus type 2. Apparently, she went to PCP's office today and was saturating in the 70s on 2 L by nasal cannula. She has some chronic cough with whitish sputum. She denied any chest pain, fever, chills, nausea, vomiting, or lower extremity edema. She was treated with DuoNebs, magnesium, and steroids in the emergency room, and she is getting admitted for further treatments to the hospital. She is getting admitted to the hospital quite often. Last time, she was just discharged a month ago. PAST MEDICAL HISTORY: Positive for; 1. Chronic respiratory failure, on home oxygen. 2. Hypertension. 3. Diabetes mellitus, type 2. 4. Hyperlipidemia. 5. Congestive heart failure. PAST SURGICAL HISTORY: Status post tracheostomy, which was removed. SOCIAL HISTORY: She smokes cigarettes, it varies, she smokes daily, but it is usually at least one pack. She denies any alcohol intake. She denies any illicit drug use. ALLERGIES: CODEINE, PENICILLIN, AND ASPIRIN. HOME MEDICATIONS: Please see home medication reconciliation form for updated medications. FAMILY HISTORY: Mother and father of MIs. She does not really remember what ages they were when they . REVIEW OF SYSTEMS: Review of 14 systems negative except what is mentioned in the history of present illness. PHYSICAL EXAMINATION: VITAL SIGNS: Blood pressure is 113/62, pulse is 85, respiratory rate is 15, O2 saturation is 98% on O2. During my visit, she is getting DuoNeb treatment. SKIN: Grayish, typical for chronic COPD. HEENT: Head is atraumatic and normocephalic. Her pupils are responding to light properly. Sclerae are nonicteric. Oral mucosa is somewhat dry. NECK: Supple. LUNGS: Bilateral rales present. Few wheezes bilaterally. HEART: S1 and S2, normal. No S3. No S4. ABDOMEN: Soft and nontender. Bowel sounds are present. EXTREMITIES: No clubbing, cyanosis, or edema. NEUROLOGIC: She is alert and oriented x4. There are no any motor or sensory deficits. LABORATORY DATA: Showed white count of 11.9, hemoglobin 14.2, hematocrit 44.7, platelet count is 249,000. Sodium of 141, potassium 3.5, chloride 90, CO2 is 34, BUN 16, creatinine 0.79, glucose 173. Troponin-I less than 0.010. The rest of chemistry is within normal limits. Electrocardiogram showed normal sinus rhythm with ventricular rate of 97 beats per minute with some Q-waves in precordial leads and signs of left atrial enlargement. Chest x-ray personally reviewed by me, showed no evidence of cardiopulmonary disease. IMPRESSION: 1. Acute exacerbation of chronic obstructive pulmonary disease. 2. Acute exacerbation of chronic respiratory failure. 3. Hypertension. 4. Diabetes mellitus, type 2. 5. Hyperlipidemia. 6. Congestive heart failure. PLAN: Full admission to the medical floor. Condition is fair at this point. Diet, 2000 calories ADA. Activities, bathroom privileges. Solu-Medrol 40 mg IV push q.6 hours, DuoNebs q.4 hours, levofloxacin 500 mg IV piggyback every 24 hours. We will reconcile her home medications, the list is available. Her primary care physician is Dr. Quinn and surrogate decision maker is her , Mr. Jimenez. She will have DVT prophylaxis with Lovenox and SCDs, and PUD prophylaxis with H2 shirin. Job ID: [id number]
[2019-04-01 05:35] LABS: #Lymphocytes 0.7 thou/uL (1.20-3.40); #Monocytes 0.1 thou/uL (0.11-0.59); #Neutrophils 8.8 thou/uL (1.40-6.50); %Eosinophils 0.2 % (0.0-10.0); %Lymphocytes 7.4 % (21.0-51.0); %Monocytes 1.1 % (0.0-10.0); %Neutrophils 91.3 % (42.0-75.0); Hemoglobin 14.3 g/dL (12.0-16.0); Mean Corpuscular HGB CONC 31.4 g/dL (32.0-36.0); Mean Corpuscular Hemoglobin 28.1 pg (27.0-31.0); Mean Corpuscular Volume 89.5 fL (78.0-98.0); Mean Platelet Volume 7.6 fL (7.4-10.4); Platelet Count 232 thou/uL (130-400); RBC Distribution Width 14.6 % (11.5-14.5); Red Blood Cell (RBC) Count 5.11 mill/uL (4.20-5.40); White Blood Cell (WBC) Count 9.7 thou/uL (4.8-10.8)
[2019-04-01] MEDS: Sodium Chloride 0.9% 1,000 ML IV SCH (05:48)
[2019-04-01] MEDS: methylPREDNISolone Sod Succ 40 MG VIAL IVP SCH (05:48)
[2019-04-01] MEDS: HumaLOG 300 UNITS/3 ML VIAL SC PRN ×2 (05:50→12:23)
[2019-04-01 06:05] LABS: Anion Gap 14 mmol/L (10-20); BUN (Urea Nitrogen) 17 mg/dL (9.8-20.1); Calc. Creatinine Clearance 69 mL/min (70-130); Calcium 9.7 mg/dL (7.8-10.44); Carbon Dioxide 36 mmol/L (23-31); Chloride 94 mmol/L (98-107); Estimated GFR-MDRD 71; Glucose 219 mg/dL (80-115); Potassium 5.4 mmol/L (3.5-5.1); Sodium 139 mmol/L (136-145)
[2019-04-01] MEDS ORDERED: Albuterol Sulfate 2.5 mg/3 ml Neb NEB PRN (07:23)
[2019-04-01] MEDS: Aspirin 81 mg Enteric Coated Tablet PO SCH ×2 (08:43→21:25)
[2019-04-01] MEDS: Famotidine 20 MG TAB PO SCH ×2 (08:44→21:25)
[2019-04-01] MEDS: Amlodipine 10 MG TAB PO SCH (08:44)
[2019-04-01] MEDS: Furosemide 40 MG TAB PO SCH (08:45)
[2019-04-01] MEDS: Lisinopril 20 MG TAB PO SCH ×2 (08:45→21:25)
[2019-04-01] MEDS: Enoxaparin Sodium 40 MG/0.4 ML SYRINGE SC SCH (08:46)
[2019-04-01] MEDS ORDERED: FLU VACC TS2019-20(65YR UP)/PF 180 MCG/0.5 ML SYRINGE IM ONE (09:00)
--- NOTE | 2019-04-01 09:48 | PRG ---
DATE OF SERVICE: 04/01/2019 SUBJECTIVE: The patient is seen and examined at bedside. She feels significantly better. Her shortness of breath improved. OBJECTIVE: VITAL SIGNS: Blood pressure is 163/83, pulse is 88, respiratory rate is 24. She is on 4 L by nasal cannula. O2 saturation is 94%. Temperature is 98.4. HEENT: Head is atraumatic and normocephalic. Eyes are PERRLA. Sclerae are nonicteric. LUNGS: Bilateral rales present at both bases. No crackles. Few wheezes bilaterally. HEART: S1 and S2 normal. No S3. No S4. ABDOMEN: Soft and nontender. EXTREMITIES: No clubbing, cyanosis, or edema. NEUROLOGIC: She follows my commands. She moves her all 4 extremities. LABORATORY DATA: Showed normal CBC. Sodium 139, potassium 5.4, chloride 94, CO2 of 38, BUN 17, creatinine 0.8, glycemia is ranging from 198 to 347, calcium 9.7. IMPRESSION: 1. Acute exacerbation of chronic obstructive pulmonary disease. 2. Iddam-vm-bjhmanb respiratory failure. 3. Diabetes mellitus. 4. Hyperlipidemia. 5. Congestive heart failure. PLAN: Plan to change her to p.o. prednisone, continue her levofloxacin IV piggyback, continue DuoNeb, continue DVT prophylaxis, continue PUD prophylaxis, and restart her home medications. She should be able to go home most likely tomorrow. Job ID: [id number]
[2019-04-02] MEDS ORDERED: predniSONE 20 MG TAB PO SCH (08:00)
[2019-04-02] MEDS: Amlodipine 10 MG TAB PO SCH (08:45)
[2019-04-02] MEDS: Aspirin 81 mg Enteric Coated Tablet PO SCH (08:45)
[2019-04-02] MEDS: Furosemide 40 MG TAB PO SCH (08:45)
[2019-04-02] MEDS: Famotidine 20 MG TAB PO SCH (08:45)
[2019-04-02] MEDS: Lisinopril 20 MG TAB PO SCH (08:45)
[2019-04-02] MEDS: Enoxaparin Sodium 40 MG/0.4 ML SYRINGE SC SCH (08:46)
[2019-04-02 09:40] LABS: Anion Gap 14 mmol/L (10-20); BUN (Urea Nitrogen) 18 mg/dL (9.8-20.1); Calc. Creatinine Clearance 73 mL/min (70-130); Carbon Dioxide 27 mmol/L (23-31); Chloride 98 mmol/L (98-107); Estimated GFR-MDRD 76; Glucose 209 mg/dL (80-115); Potassium 4.1 mmol/L (3.5-5.1); Sodium 135 mmol/L (136-145)
[2019-04-02 11:31] VITALS: BP 131/74; TEMP 98.3
--- NOTE | 2019-04-02 21:38 | DIS ---
DATE OF ADMISSION: 03/31/2019 DATE OF DISCHARGE: 04/02/2019 FINAL DIAGNOSES: 1. Acute on chronic respiratory failure. 2. Chronic obstructive pulmonary disease exacerbation. 3. Hypertension. 4. Diabetes mellitus, type 2. 5. Hyperlipidemia. 6. Congestive heart failure per history. HOSPITAL COURSE: The patient is a 69-year-old female, who presented to the emergency room for evaluation of her shortness of breath. Apparently, she is end-stage of COPD with home O2 at 3 L by nasal cannula. Apparently, she went to her PCP and her saturations were in the 70s on 2 L by nasal cannula. She had some chronic cough with whitish sputum. She denied any chest pain, fever, chills, nausea, vomiting, or lower extremity edema. She was treated with DuoNeb, magnesium, steroids in the emergency room, and got admitted for further evaluation to the hospital. At the time of admission, her white count was 11.9, hemoglobin 14.2, hematocrit 44.7. Electrolytes within normal limits. Creatinine was 0.79. Electrocardiogram showed normal sinus rhythm with ventricular rate of 97 beats per minute with some Q-wave in precordial leads and signs of left atrial enlargement. Chest x-ray did not show any acute cardiopulmonary disease. The patient was placed on IV levofloxacin on Solu-Medrol and DuoNeb. She improved relatively quickly. She is showing still some wheezing, but that is minimal comparing to what it was at the time of admission. Her vitals, blood pressure is 131/70, pulse is 83, respirations 16, O2 saturation is 95% on 2.5 L by nasal cannula, temperature is 98.2. She is discharged home with recommendation to stay on diabetic diet 2000 calories. Activities as tolerated. MEDICATIONS AT THE TIME OF DISCHARGE: 1. 40 mg of prednisone once a day for the next 5 days. 2. DuoNeb q.4 hours. 3. Aspirin 81 mg twice a day. 4. Furosemide 40 mg p.o. daily. 5. Glipizide 2.5 mg daily. 6. Levofloxacin 500 mg for the next 7 days. 7. Lisinopril 20 mg twice a day. 8. Amlodipine 10 mg once a day. 9. Cilostazol 100 mg at bedtime. 10. Tylenol p.r.n. 650 mg every 4 hours as needed. FOLLOWUP: She is going to follow up with primary care physician in 1 week and she will continue her O2 at 2.5 or 3 L by nasal cannula at home. The patient was seen and examined before she was discharged and discharge time is less than 30 minutes. Job ID: [id number]
== END 2019-04-02 12:07 | disposition home or self-care (01) | DRG 189 ==
LOC: ERS 11:55 → T4-A 13:54
PROVIDERS: ADMIT Internal Medicine; ATTEND Internal Medicine
DX: J96.21 Acute and chronic respiratory failure with hypoxia (principal); J44.1 Chronic obstructive pulmonary disease with (acute) exacerbation; I50.9 Heart failure, unspecified; I11.0 Hypertensive heart disease with heart failure; F17.210 Nicotine dependence, cigarettes, uncomplicated; E11.9 Type 2 diabetes mellitus without complications; E78.5 Hyperlipidemia, unspecified; Z88.0 Allergy status to penicillin; Z88.2 Allergy status to sulfonamides; Z88.8 Allergy status to other drugs, medicaments and biological substances; Z93.0 Tracheostomy status; Z99.81 Dependence on supplemental oxygen
CPT/HCPCS: 36415; 36416; 71045; 80048; 80053; 83880; 84484; 85025; 90471; 90662; 93005; 94640; 96365; 96375; G0008; J1650; J1956; J2920; J2930; J3475; J7512; J7620

== ENCOUNTER 2019-05-12 09:01 | Inpatient (IN) | payer MEDICARE ==
[2019-05-12] MEDS ORDERED: Albuterol Sulfate 2.5 mg/0.5 ml Neb ONE (09:10)
[2019-05-12] MEDS ORDERED: Magnesium 2 GM/50 ML BAG (IN WATER) ONE (09:27)
[2019-05-12] MEDS ORDERED: Acetaminophen 500 MG TAB ONE (09:27)
[2019-05-12] MEDS ORDERED: methylPREDNISolone Sod Succ/PF 125 MG/2 ML VIAL ONE (09:27)
[2019-05-12 09:41] LABS: #Lymphocytes 1.3 thou/uL (1.20-3.40); #Neutrophils 7.6 thou/uL (1.40-6.50); %Basophils 0.1 % (0.0-1.0); %Eosinophils 0.1 % (0.0-10.0); %Lymphocytes 13.1 % (21.0-51.0); %Monocytes 10.1 % (0.0-10.0); %Neutrophils 76.6 % (42.0-75.0); Hemoglobin 12.9 g/dL (12.0-16.0); Mean Corpuscular HGB CONC 32.1 g/dL (32.0-36.0); Mean Corpuscular Hemoglobin 28.6 pg (27.0-31.0); Mean Corpuscular Volume 89.2 fL (78.0-98.0); Mean Platelet Volume 7.5 fL (7.4-10.4); Platelet Count 203 thou/uL (130-400); RBC Distribution Width 15.4 % (11.5-14.5); Red Blood Cell (RBC) Count 4.52 mill/uL (4.20-5.40); White Blood Cell (WBC) Count 9.9 thou/uL (4.8-10.8)
--- NOTE | 2019-05-12 09:50 | RAD ---
Chest AP view INDICATION: Weakness COMPARISON: March 31, 2019 FINDINGS: Lungs:There is increased interstitial markings predominantly involving the right lung and left lower lobe suspicious for either edema or an interstitial pneumonia. This is superimposed on moderate COPD. Cardiac silhouette:Heart size remains mildly enlarged. Pulmonary vasculature:Normal Pleural spaces:No pleural effusion or pneumothorax is demonstrated. Upper abdomen:No abnormality seen. Osseous structures: No acute osseous abnormality. Additional findings:None. IMPRESSION: Increased interstitial markings involving both lungs but predominantly the right lung. Fi ndings may reflect asymmetric edema; however, an interstitial pneumonia can have this appearance.
[2019-05-12 10:03] LABS: ALT (SGPT) 16 U/L (8-55); AST (SGOT) 24 U/L (5-34); Albumin 3.5 g/dL (3.4-4.8); Alkaline Phosphatase 61 U/L (40-110); BUN (Urea Nitrogen) 17 mg/dL (9.8-20.1); Bilirubin, Total 0.2 mg/dL (0.2-1.2); CK (CPK) 55 U/L (29-168); Calc. Creatinine Clearance 0 mL/min (70-130); Calcium 9.2 mg/dL (7.8-10.44); Estimated GFR-MDRD 69; Globulin 3.4 g/dL (2.4-3.5); Glucose 109 mg/dL (80-115); Protein, Total 6.9 g/dL (6.0-8.3)
[2019-05-12 10:19] LABS: Anion Gap 13 mmol/L (10-20)
[2019-05-12] MEDS ORDERED: Cefepime 2 GM VIAL ONE (10:30)
[2019-05-12] MEDS ORDERED: Sodium Chloride 0.9% 100 ML ONE (10:30)
[2019-05-12 10:35] LABS: Carbon Dioxide 35 mmol/L (23-31)
[2019-05-12 10:47] LABS: Chloride 92 mmol/L (98-107); Potassium 3.9 mmol/L (3.5-5.1); Sodium 137 mmol/L (136-145)
[2019-05-12] MEDS ORDERED: Vancomycin 1.5 GRAM/300 ML BAG 1.5 GM in Premix Bag 1 BAG IVPB SCH (11:00)
[2019-05-12 11:12] LABS: Bilirubin Negative (Negative); Blood, Urine 1+ (Negative); Clarity Turbid (Clear); Glucose, Urine (Dipstick) Normal (Negative); Leukocyte Negative Leu/uL (Negative); Nitrite Negative (Negative); Protein, Urine (Dipstick) 100 mg/dL (Neg-Trace); Squamous Epithelial 0-3 HPF (0-3); Urobilinogen Normal mg/dL (Less than 2)
[2019-05-12 11:24] LABS: Bacteria/HPF 1+ HPF (None Seen)
[2019-05-12] MEDS ORDERED: HYDROcodone/Acetaminophen 5/325 mg Tablet PO PRN (12:15)
[2019-05-12] MEDS ORDERED: Enoxaparin Sodium 40 MG/0.4 ML SYRINGE SC SCH (12:15)
[2019-05-12] MEDS ORDERED: Dextrose 5% in Water 1,000 ML IV PRN (12:15)
[2019-05-12] MEDS ORDERED: Dextrose 50% Abboject 50 ML SYRINGE SLOW IVP PRN (12:15)
[2019-05-12] MEDS ORDERED: Ondansetron PF 4 MG/2 ML Vial IVP PRN (12:15)
[2019-05-12] MEDS ORDERED: Ondansetron ODT 4 MG TAB PO PRN (12:15)
[2019-05-12 12:19] LABS: Actual Bicarbonate (HCO3a) 39.7 mEq/L (22-28); Analyzer IN Cardio ER; Base Excess (BEa) 10.2 mEq/L (-2.0 to +3.0); Calcium, Ionized 1.14 mmol/L (1.12-1.30); Carboxyhemoglobin (COHb) 1.8 gm% (0.0-3.0); O2 Tension (PaO2) 61.6 mmHg (> 80.0); pH, Arterial 7.31 (7.35-7.45)
[2019-05-12 12:20] LABS: CO2 Tension 81.1 mmHg (35.0-45.0); Puncture Site RRA
[2019-05-12 12:21] LABS: ALV-art Gradient 122.225 (0-20)
--- NOTE | 2019-05-12 12:52 | HP ---
PRIMARY CARE PHYSICIAN: Dr. Jeremy Quinn. CHIEF COMPLAINT: Worsening shortness of breath and weakness. HISTORY OF PRESENT ILLNESS: A 69-year-old female with chronic respiratory failure secondary to COPD on home oxygen, who continues to smoke about a pack of cigarette daily, chronic CHF, diabetes type 2, amongst others, who was brought in due to worsening shortness of breath and generalized weakness. The patient reported worsening cough and shortness of breath since about 3 to 4 days associated with wheezing and generalized weakness. She reported that earlier today, she was unable to get up and walk around, hence she called EMS and was brought to the hospital. On presentation to the ER, the patient was found to have severe hypoxia with SpO2 in 50s while on usual 3 L of nasal cannula. She was subsequently started on non-rebreather with improvement and was treated with bronchodilators as well as magnesium and steroid as well as antibiotics with some improvement. She is currently back on nasal cannula oxygen. She also reported weight loss since last admission. There was no history of fever, leg swelling, nausea, vomiting, dizziness, abdominal pain, change in bowel habit, dysuria, or hematuria. The patient admitted to headache, but denied focal weakness. PAST MEDICAL HISTORY: 1. Chronic respiratory failure, on home oxygen. 2. Hypertension. 3. Type 2 diabetes mellitus. 4. Hyperlipidemia. 5. Chronic congestive heart failure. 6. Tobacco abuse disorder. 7. COPD. PAST SURGICAL HISTORY: Tracheostomy placement and subsequent takedown. FAMILY HISTORY: Both parents of myocardial infarction. SOCIAL HISTORY: The patient lives with spouse. She continues to smoke. She denied alcohol or recreational drug use. She wants to be full code and spouse is the surrogate decision maker. ALLERGIES: CODEINE, PENICILLIN, AND ASPIRIN. HOME MEDICATIONS: 1. Cilostazol 100 mg p.o. daily at bedtime. 2. Lisinopril 20 mg p.o. b.i.d. 3. Furosemide 40 mg p.o. daily. 4. Amlodipine 10 mg p.o. daily. 5. Glipizide 2.5 mg p.o. daily. 6. Albuterol HFA inhalation p.r.n. for shortness of breath. REVIEW OF SYSTEMS: 12-point review of system performed was negative other than pertinent positives and negatives included in the history of present illness. PHYSICAL EXAMINATION: VITAL SIGNS: Initial vitals on presentation to the ER showed SpO2 of 58% on 3 L nasal cannula. Subsequent vitals on non-rebreather showed 100% SpO2 with blood pressure of 128/72, pulse of 94, respiratory rate 26. Most current vitals showed blood pressure 93/55, pulse 92, respiratory rate 20, SpO2 of 97% on 5 L nasal cannula oxygen, temperature is 99.7. GENERAL: Chronically ill-looking female, in mild respiratory distress. Afebrile. Anicteric. Acyanotic. HEENT: Normocephalic and atraumatic. Oral mucosa is mildly dry. NECK: Supple. Nontender with good range of motion. No JVD or masses appreciated. CARDIOVASCULAR: Regular rhythm and rate with normal heart sounds 1 and 2. Soft systolic murmur noted. RESPIRATORY: Diminished air movement with prolonged expiration as well as some transmitted breath sounds and rhonchi noted. Work of breathing is mildly increased. GI: Full, soft, nontender, nondistended with normal bowel sounds. EXTREMITIES: Grossly normal looking, atraumatic with no edema or erythema. 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 Cranial nerves 2 through 12 are grossly intact. The patient moves all extremities, but weakly. Gait was not tested. DIAGNOSTIC DATA: CBC showed WBC count of 9.9, hemoglobin of 12.9, MCV of 89.2, platelet of 203. CMP showed sodium 137, potassium 3.9, CO2 of 35, chloride 92, BUN 17, creatinine 0.82, glucose 109, calcium 9.2, total bilirubin 0.2, AST 24, ALT 16, alkaline phosphatase 61, total protein 6.9, albumin 3.5, globulin 3.4. Cardiac markers showed CK 55, troponin 0.015, and BNP 57. Urinalysis showed turbid urine with pH of 6.0, specific gravity of 1.016, urine protein of 100 mg/dL, normal glucose, negative ketone, nitrite, bilirubin, and leukocyte esterase. Microscopy showed 11 to 20 rbc and 4 to 6 wbc with 1+ bacteria. EKG showed sinus tachycardia with occasional APCs and rate of 100. Poor R-wave progression noted. Chest x-ray showed increased interstitial markings prominent predominantly involving both lung bases suspicious for either edema or an interstitial pneumonia. This is noted to be superimposed on baseline moderate COPD. ASSESSMENT: 1. Acute on chronic respiratory failure with hypoxia due to chronic obstructive pulmonary disease exacerbation with possible bronchopneumonia, hypercarbia cannot be ruled out. 2. Chronic obstructive pulmonary disease exacerbation. 3. Tobacco abuse disorder. 4. Type 2 diabetes mellitus. 5. Chronic congestive heart failure of unclear type. 6. Bibasilar infiltrates: Either pneumonia or congestive heart failure exacerbation. 7. Metabolic alkalosis: Etiology is unclear. Query compensatory to respiratory acidosis. 8. History of hypertension: Blood pressure currently is soft. PLAN: 1. We will admit the patient to medical telemetry. 2. We will rule out acute ME with serial troponin. 3. We will get repeat echocardiogram to assess cardiac function given bibasilar infiltrates. 4. We will also continue antibiotic therapy as well as steroid bronchodilators and oxygen supplementation. 5. We will also get arterial blood gas. 6. Sliding scale insulin will be commenced. 7. We will continue bronchodilators. 8. We will hold diuretic and antihypertensives for now. 9. Code status, full code. 10. DVT prophylaxis with Lovenox will be commenced. 11. Further treatment to follow depending on hospital course. 12. Spouse is the surrogate decision maker. Job ID: [id number]
[2019-05-12 13:38] LABS: Troponin I 0.021 ng/mL (< 0.028)
[2019-05-12 14:25] VITALS: BMI 27.1
[2019-05-12] MEDS: Sodium Chloride 0.9% 1,000 ML IV SCH (14:30)
[2019-05-12 15:58] LABS: Troponin I 0.023 ng/mL (< 0.028)
[2019-05-12] MEDS: Insulin Regular 300 UNITS/3 ML VIAL SC PRN (18:29)
[2019-05-12] MEDS: predniSONE 20 MG TAB PO SCH (21:29)
[2019-05-13 05:02] LABS: #Lymphocytes 0.5 thou/uL (1.20-3.40); #Monocytes 0.4 thou/uL (0.11-0.59); #Neutrophils 7.4 thou/uL (1.40-6.50); %Eosinophils 0.3 % (0.0-10.0); %Lymphocytes 6.1 % (21.0-51.0); %Monocytes 4.2 % (0.0-10.0); %Neutrophils 89.3 % (42.0-75.0); Mean Corpuscular HGB CONC 31.1 g/dL (32.0-36.0); Mean Corpuscular Hemoglobin 27.7 pg (27.0-31.0); Mean Platelet Volume 7.6 fL (7.4-10.4); Platelet Count 206 thou/uL (130-400); RBC Distribution Width 15.1 % (11.5-14.5); Red Blood Cell (RBC) Count 4.68 mill/uL (4.20-5.40); White Blood Cell (WBC) Count 8.3 thou/uL (4.8-10.8)
[2019-05-13 05:23] LABS: BUN (Urea Nitrogen) 13 mg/dL (9.8-20.1); Calc. Creatinine Clearance 84 mL/min (70-130); Calcium 8.7 mg/dL (7.8-10.44); Estimated GFR-MDRD 83; Glucose 160 mg/dL (80-115)
[2019-05-13 05:32] LABS: Anion Gap 11 mmol/L (10-20); Carbon Dioxide 35 mmol/L (23-31); Chloride 93 mmol/L (98-107); Potassium 4.4 mmol/L (3.5-5.1); Sodium 135 mmol/L (136-145)
[2019-05-13] MEDS: Enoxaparin Sodium 40 MG/0.4 ML SYRINGE SC SCH (08:44)
[2019-05-13] MEDS: predniSONE 20 MG TAB PO SCH (08:44)
[2019-05-13] MEDS: Acetaminophen 325 MG TAB PO PRN (08:44)
[2019-05-13] MEDS: Sodium Chloride 0.9% 1,000 ML IV SCH (08:45)
[2019-05-13] MEDS: Insulin Regular 300 UNITS/3 ML VIAL SC PRN ×2 (11:35→17:45)
--- NOTE | 2019-05-13 13:39 | CON ---
DATE OF CONSULTATION: 05/13/2019 CONSULTING PHYSICIAN: Magy Ramirez Obi, MD REASON FOR CONSULTATION: COPD exacerbation. HISTORY OF PRESENT ILLNESS: The patient is a 69-year-old female, who presented to the hospital last night stating that she felt "strange." She was found to be hypercapnic, but I am not sure that is far from her baseline. She started getting treatment last night with steroids, nebulization treatments, and antibiotics and she feels better this morning. PAST MEDICAL HISTORY: 1. Chronic obstructive pulmonary disease. 2. Hypertension. 3. Type 2 diabetes mellitus. PAST SURGICAL HISTORY: Previous tracheostomy, but subsequently decannulated. SOCIAL HISTORY: She continues to smoke half pack per day. She also wears oxygen at home. She lives at home with her near [place]. Does not consume any alcohol. Does not use any illicit drugs. FAMILY MEDICAL ALLERGY: Unremarkable. ALLERGIES: ASPIRIN, PENICILLIN, AND CODEINE. MEDICATIONS: Prior to admission; 1. Aspirin 81 mg twice daily. 2. Acetaminophen 650 mg as needed. 3. Atrovent nebs 4 times daily. 4. Albuterol nebs 4 times daily. 5. Zestril 20 mg b.i.d. 6. Cilostazol 100 mg daily. 7. Glipizide ER 2.5 mg daily. 8. Lasix 40 mg daily. 9. Amlodipine 10 mg daily. REVIEW OF SYSTEMS: Remarkable for weakness. No fever, chills, nausea, vomiting, hematemesis, melena, hematochezia, hematuria, or dysuria. PHYSICAL EXAMINATION: VITAL SIGNS: Temperature 98.5, pulse 102, respirations 20, O2 saturation 98% on 3 L, and blood pressure 136/64. GENERAL: The patient is a disheveled-appearing female, in no apparent distress. HEENT: Pupils react. Sclerae are anicteric. Oropharynx is clear. NECK: No adenopathy or JVD. LUNGS: Diffuse mild end-expiratory wheezing. CARDIOVASCULAR: S1 and S2, regular without murmur. ABDOMEN: Soft, nontender to palpation. EXTREMITIES: No clubbing, cyanosis, or edema. NEUROLOGIC: Nonfocal. LABORATORY DATA: White blood cell count 8.3, hematocrit 41.6, and platelet count 206. PH of 7.31, pCO2 of 81, and pO2 of 61 that was on 5 L. Sodium 135, potassium 4.4, chloride 93, CO2 of 35, BUN 13, creatinine 0.7, and glucose 160. ASSESSMENT: 1. Chronic obstructive pulmonary disease with exacerbation. 2. Chronic hypoxic and hypercapnic respiratory failure. 3. History of diastolic heart failure. 4. Tobacco abuse. PLAN: I have reviewed the orders and agree with current treatment, antibiotics, nebulization therapy, and steroids. I would change her steroids over to IV. She has been cautioned not to smoke. I would put her on little oxygen as needed to keep her SaO2 about 90%. Right now, she is asymptomatic from her hypercapnia and does not need noninvasive ventilation. Job ID: [id number]
--- NOTE | 2019-05-13 13:46 | PDOC.HOSPP ---
- Subjective Encounter Date: 05/13/19 Encounter Time: 08:44 Subjective: 69 y/o female with chronoc respiratory failure from COPD on home oxygen who still smokes admitted with worsening weakness and SOB. Started on antibiotic, steroid, and bronchodilators for COPD exacerbation. Feeling marginally better. Still complaining of generalized weakness. No fever, chest pain or vomiting. Still coughing but mostly dry. - Objective Vital Signs & Weight: Vital Signs (12 hours) Temp Pulse Pulse Pulse Resp BP BP 05/13/19 12:59 94 20 05/13/19 11:09 98.5 F 102 H 20 05/13/19 10:25 98.4 F 85 22 H 05/13/19 08:55 96 104 H 110/62 121/70 05/13/19 08:45 100.6 F H 113 H 24 H 05/13/19 07:17 05/13/19 07:16 108 H 20 05/13/19 04:35 05/13/19 03:35 98.1 F 94 14 05/13/19 01:56 88 16 BP Pulse Ox 05/13/19 12:59 05/13/19 11:09 136/64 90 L 05/13/19 10:25 105/60 98 05/13/19 08:55 05/13/19 08:45 110/62 94 L 05/13/19 07:17 92 L 05/13/19 07:16 92 L 05/13/19 04:35 122/72 05/13/19 03:35 92 L 05/13/19 01:56 95 Weight Weight 153 lb 3 oz I&O: 05/12/19 05/13/19 05/14/19 06:59 06:59 06:59 Intake Total 1326 Output Total 405 Balance 921 Result Diagrams: 05/13/19 04:02 05/13/19 04:02 Additional Labs: Accuchecks 05/13/19 05/13/19 05/12/19 10:49 06:20 20:06 POC Glucose 172 H 148 H 254 H 05/12/19 16:36 POC Glucose 225 H Hospitalist ROS - Medication Medications: Active Medications Generic Name Dose Route Start Last Admin Trade Name Freq PRN Reason Stop Dose Admin Acetaminophen 650 mg 05/12/19 12:15 05/13/19 08:44 Tylenol PO 650 mg Q4H PRN Administration Headache/Fever/Mild Pain (1-3) Enoxaparin Sodium 40 mg 05/13/19 09:00 05/13/19 08:44 Lovenox SC 40 mg 0900 AFSANEH Administration Levofloxacin 750 mg/ Device 150 mls @ 100 mls/hr 05/13/19 11:00 05/13/19 11: 35 IVPB 150 mls 1100 AFSANEH Administration Sodium Chloride 1,000 mls @ 50 mls/hr 05/12/19 13:00 05/13/19 08:45 Normal Saline 0.9% IV 1,000 mls .Q20H AFSANEH Administration Insulin Human Regular 0 units 05/12/19 12:15 05/13/19 11:35 Humulin R SC 2 unit .MODERATE SLIDING SC PRN Administration Moderate Correctional Scale - Exam General Appearance: awake alert Eye: anicteric sclera ENT: normocephalic atraumatic Neck: symmetric, no JVD Heart: RRR Respiratory: normal chest expansion Respiratory - other findings: fair air entry with scattered transmitted sound and few rhonchi Gastrointestinal: soft, non-tender, non-distended, normal bowel sounds Extremities: no cyanosis, no edema Neurological: cranial nerve grossly intact, no focal deficits Musculoskeletal: generalized weakness Psychiatric: A&O x 3 Hosp A/P (1) Acute on chronic respiratory failure with hypercapnia Code(s): J96.22 - ACUTE AND CHRONIC RESPIRATORY FAILURE WITH HYPERCAPNIA Status: Acute (2) COPD exacerbation Code(s): J44.1 - CHRONIC OBSTRUCTIVE PULMONARY DISEASE W (ACUTE) EXACERBATION Status: Acute (3) Physical deconditioning Code(s): R53.81 - OTHER MALAISE Status: Acute (4) Tobacco abuse disorder Code(s): Z72.0 - TOBACCO USE Status: Acute (5) Pneumonia Code(s): J18.9 - PNEUMONIA, UNSPECIFIED ORGANISM Status: Acute (6) DM type 2 (diabetes mellitus, type 2) Status: Chronic (7) HTN (hypertension) Code(s): I10 - ESSENTIAL (PRIMARY) HYPERTENSION Status: Chronic (8) Lung infiltrate Code(s): R91.8 - OTHER NONSPECIFIC ABNORMAL FINDING OF LUNG FIELD Status: Acute - Plan Continue antibiotics, steroid, bronchodilators. Start mucinex. Continue gentle IV fluid therapy. PT/OT to continue. discussed option of inpatient rehab and SNF with patient but these were declined. Get repeat ABG in the am.
[2019-05-13 15:09] LABS: Actual Bicarbonate (HCO3a) 39.8 mEq/L (22-28); Base Excess (BEa) 8.4 mEq/L (-2.0 to +3.0); Calcium, Ionized 1.18 mmol/L (1.12-1.30); Carboxyhemoglobin (COHb) 1.3 gm% (0.0-3.0); Hemoglobin (Hb) 13.5 g/dL (12.0-16.0); O2 Tension (PaO2) 157.3 mmHg (> 80.0)
[2019-05-13 15:16] LABS: CO2 Tension 97.4 mmHg (35.0-45.0); Puncture Site LR; pH, Arterial 7.23 (7.35-7.45)
[2019-05-13] MEDS: methylPREDNISolone Sod Succ 40 MG VIAL IVP SCH (17:43)
[2019-05-14] MEDS: methylPREDNISolone Sod Succ 40 MG VIAL IVP SCH ×4 (00:15→16:59)
[2019-05-14 04:19] LABS: Anion Gap 9 mmol/L (10-20); BUN (Urea Nitrogen) 11 mg/dL (9.8-20.1); Calc. Creatinine Clearance 95 mL/min (70-130); Calcium 8.8 mg/dL (7.8-10.44); Carbon Dioxide 36 mmol/L (23-31); Chloride 93 mmol/L (98-107); Estimated GFR-MDRD Greater than 90; Glucose 161 mg/dL (80-115); Potassium 4.9 mmol/L (3.5-5.1); Sodium 133 mmol/L (136-145)
[2019-05-14] MEDS: Insulin Regular 300 UNITS/3 ML VIAL SC PRN ×2 (06:28→16:59)
[2019-05-14] MEDS: Sodium Chloride 0.9% 1,000 ML IV SCH (06:31)
[2019-05-14 06:59] LABS: Actual Bicarbonate (HCO3a) 37.9 mEq/L (22-28); Base Excess (BEa) 7.9 mEq/L (-2.0 to +3.0); Calcium, Ionized 1.17 mmol/L (1.12-1.30); Carboxyhemoglobin (COHb) 2.1 gm% (0.0-3.0); Hemoglobin (Hb) 13.7 g/dL (12.0-16.0); O2 Tension (PaO2) 71.6 mmHg (> 80.0); Potassium - ABG Lab 4.31 mmol/L (3.70-5.30); pH, Arterial 7.28 (7.35-7.45)
[2019-05-14 07:48] LABS: ALV-art Gradient 52.435 (0-20); CO2 Tension 83.3 mmHg (35.0-45.0); Puncture Site RRAD
[2019-05-14] MEDS: Enoxaparin Sodium 40 MG/0.4 ML SYRINGE SC SCH (10:27)
--- NOTE | 2019-05-14 10:54 | PRG ---
DATE OF SERVICE: 05/14/2019 SUBJECTIVE: The patient was transferred to the [facility] yesterday for the purpose of placing BiPAP. She does feel better on the BiPAP today. OBJECTIVE: VITAL SIGNS: Her temperature is 98.0, pulse 86, and blood pressure 148/74. A 24-hour intake 1350 and output 1900. HEENT: Unremarkable. NECK: No adenopathy or JVD. LUNGS: Tight end-expiratory wheezing. CARDIAC: S1 and S2. Regular. ABDOMEN: Soft. EXTREMITIES: No edema. LABORATORY DATA: A pH of 7.28, pCO2 of 83, and pO2 of 71 on BiPAP 10/5. Sodium 133, potassium 4.9, chloride 93, CO2 of 36, BUN 11, creatinine 0.6, and glucose 161. ASSESSMENT: 1. Chronic obstructive pulmonary disease with exacerbation. 2. Chronic hypoxic and hypercapnic respiratory failure. PLAN: 1. Continue BiPAP, I have adjusted the settings. 2. Continue IV steroids, but increase the dose. 3. Antibiotics. 4. Nebulization treatments. Job ID: [id number]
--- NOTE | 2019-05-14 13:18 | PDOC.HOSPP ---
- Subjective Encounter Date: 05/14/19 Encounter Time: 11:09 Subjective: 69 y/o female with chronoc respiratory failure from COPD on home oxygen who still smokes admitted with worsening weakness and SOB. Started on antibiotic, steroid, and bronchodilators for COPD exacerbation. Later developed worsening SOB associated with worsening hypercarbia and respiratory acidosis and was transfered to [facility] and started on BIPAP. Feeling better. No fever, chest pain or vomiting. - Objective Vital Signs & Weight: Vital Signs (12 hours) Temp Pulse Resp Pulse Ox 05/14/19 13:07 94 20 98 05/14/19 11:17 98.3 F 05/14/19 10:35 93 24 H 97 05/14/19 07:49 88 26 H 95 05/14/19 07:10 98.0 F 05/14/19 03:44 90 96 05/14/19 03:43 96 05/14/19 03:22 98.8 F Weight Admit Weight 153 lb 3 oz Weight 153 lb 3 oz Most Recent Monitor Data Heart Rate from ECG 90 NIBP 135/78 NIBP BP-Mean 97 Respiration from ECG 25 SpO2 100 I&O: 05/13/19 05/14/19 05/15/19 06:59 06:59 06:59 Intake Total 1326 1350 Output Total 405 1900 Balance 921 -550 Result Diagrams: 05/13/19 04:02 05/14/19 03:28 Additional Labs: Accuchecks 05/14/19 05/14/19 05/13/19 10:10 05:21 19:59 POC Glucose 129 H 177 H 149 H 05/13/19 17:07 POC Glucose 178 H Hospitalist ROS - Medication Medications: Active Medications Generic Name Dose Route Start Last Admin Trade Name Freq PRN Reason Stop Dose Admin Acetaminophen 650 mg 05/12/19 12:15 05/13/19 08:44 Tylenol PO 650 mg Q4H PRN Administration Headache/Fever/Mild Pain (1-3) Albuterol/Ipratropium 3 ml 05/12/19 12:15 05/14/19 13:07 Duoneb NEB 3 ml Q2H PRN Administration SOB &/or Wheezing Albuterol/Ipratropium 3 ml 05/13/19 14:30 05/14/19 10:35 Duoneb NEB 3 ml [id number] AFSANEH Administration Enoxaparin Sodium 40 mg 05/13/19 09:00 05/14/19 10:27 Lovenox SC 40 mg 0900 AFSANEH Administration Levofloxacin 750 mg/ Device 150 mls @ 100 mls/hr 05/13/19 11:00 05/14/19 10: 28 IVPB 150 mls 1100 AFSANEH Administration Sodium Chloride 1,000 mls @ 50 mls/hr 05/12/19 13:00 05/14/19 06:31 Normal Saline 0.9% IV 1,000 mls .Q20H AFSANEH Administration Insulin Human Regular 0 units 05/12/19 12:15 05/14/19 06:28 Humulin R SC 2 unit .MODERATE SLIDING SC PRN Administration Moderate Correctional Scale Methylprednisolone Sodium Succinate 40 mg 05/14/19 10:41 05/14/19 12:30 Solu-Medrol IVP 40 mg Q6HR AFSANEH Administration - Exam General Appearance: awake alert Eye: anicteric sclera ENT: normocephalic atraumatic, moist mucosa Neck: supple, symmetric, no JVD Heart: RRR Respiratory - other findings: diminished air movement with scattered transmitted sound and rhonchi Gastrointestinal: soft, non-tender, non-distended, normal bowel sounds Extremities: no cyanosis, no edema Neurological: cranial nerve grossly intact, no focal deficits Psychiatric: A&O x 3 Hosp A/P (1) Acute on chronic respiratory failure with hypercapnia Code(s): J96.22 - ACUTE AND CHRONIC RESPIRATORY FAILURE WITH HYPERCAPNIA Status: Acute (2) COPD exacerbation Code(s): J44.1 - CHRONIC OBSTRUCTIVE PULMONARY DISEASE W (ACUTE) EXACERBATION Status: Acute (3) Physical deconditioning Code(s): R53.81 - OTHER MALAISE Status: Acute (4) Tobacco abuse disorder Code(s): Z72.0 - TOBACCO USE Status: Acute (5) Pneumonia Code(s): J18.9 - PNEUMONIA, UNSPECIFIED ORGANISM Status: Acute (6) DM type 2 (diabetes mellitus, type 2) Status: Chronic (7) HTN (hypertension) Code(s): I10 - ESSENTIAL (PRIMARY) HYPERTENSION Status: Chronic (8) Lung infiltrate Code(s): R91.8 - OTHER NONSPECIFIC ABNORMAL FINDING OF LUNG FIELD Status: Acute - Plan Continue antibiotics, steroid, bronchodilators. Continue BIPAP as per dicer machine operator Continue gentle IV fluid therapy. Get repeat ABG in the am.
[2019-05-14] MEDS ORDERED: Vancomycin HCl 1 GM in Premix Bag 1 BAG IVPB SCH (13:30)
[2019-05-14] MEDS: Vancomycin HCl 1 GM in Premix Bag 1 BAG IVPB SCH (13:52)
--- NOTE | 2019-05-14 21:56 | EKG ---
Test Reason : Blood Pressure : / mmHG Vent. Rate : 100 BPM Atrial Rate : 100 BPM P-R Int : 154 ms QRS Dur : 080 ms QT Int : 356 ms P-R-T Axes : 046 -15 053 degrees QTc Int : 459 ms Sinus rhythm with Premature supraventricular complexes Anterior infarct , age undetermined Abnormal ECG Confirmed by JULIANNE BARKER DO ([id number]), health editor SURINDER BARR ([id number] on 05/14/2019 9:54:51 PM Referred By: Confirmed By:JULIANNE BARKER DO
[2019-05-15] MEDS: methylPREDNISolone Sod Succ 40 MG VIAL IVP SCH ×5 (00:04→23:12)
[2019-05-15] MEDS: Sodium Chloride 0.9% 1,000 ML IV SCH ×2 (01:00→21:00)
[2019-05-15] MEDS: Vancomycin HCl 1 GM in Premix Bag 1 BAG IVPB SCH (02:47)
[2019-05-15] MEDS: Enoxaparin Sodium 40 MG/0.4 ML SYRINGE SC SCH (08:35)
--- NOTE | 2019-05-15 11:16 | PRG ---
DATE OF SERVICE: 05/15/2019 SUBJECTIVE: She is off the BiPAP today. She says she feels somewhat better. She did wear the BiPAP last night. OBJECTIVE: VITAL SIGNS: Temperature 97.0, pulse 100, respirations 28, O2 saturation 94% on 4 L. HEENT: Mucous membranes are moist. NECK: No adenopathy or JVD. CHEST: Notable for some mild expiratory wheezing. CARDIAC: S1, S2. Regular. ABDOMEN: Soft. EXTREMITIES: No edema. ASSESSMENT: 1. Chronic obstructive pulmonary disease with exacerbation. 2. Acute on chronic hypercapnic respiratory failure. PLAN: She will continue on the antibiotics minus the vancomycin. Continue nebulization treatments. Continue IV steroids at 40 mg IV q.6 for another day or two. Job ID: [id number]
--- NOTE | 2019-05-15 14:22 | PDOC.HOSPP ---
- Subjective Encounter Date: 05/15/19 Encounter Time: 14:20 Subjective: 69 y/o female with chronoc respiratory failure from COPD on home oxygen who still smokes admitted with worsening weakness and SOB. Started on antibiotic, steroid, and bronchodilators for COPD exacerbation. Later developed worsening SOB associated with worsening hypercarbia and respiratory acidosis and was transfered to [facility] and started on BIPAP. Feeling better but still dependent on BIPAP. No fever, chest pain or vomiting. - Objective Vital Signs & Weight: Vital Signs (12 hours) Temp Pulse Resp Pulse Ox 05/15/19 12:00 97.1 F L 05/15/19 10:24 100 28 H 94 L 05/15/19 08:15 97 23 H 96 05/15/19 07:42 96 05/15/19 07:12 97.0 F L 05/15/19 05:05 97.7 F 05/15/19 03:28 84 97 05/15/19 03:27 97 Weight Admit Weight 153 lb 3 oz Weight 153 lb 3 oz Most Recent Monitor Data Heart Rate from ECG 88 NIBP 177/97 NIBP BP-Mean 123 Respiration from ECG 25 SpO2 94 I&O: 05/14/19 05/15/19 05/16/19 06:59 06:59 06:59 Intake Total 1350 1030 Output Total 1900 1490 Balance -550 -460 Result Diagrams: 05/13/19 04:02 05/14/19 03:28 Additional Labs: Accuchecks 05/15/19 05/15/19 05/14/19 10:18 06:22 21:32 POC Glucose 244 H 174 H 129 H 05/14/19 16:34 POC Glucose 212 H Hospitalist ROS - Medication Medications: Active Medications Generic Name Dose Route Start Last Admin Trade Name Freq PRN Reason Stop Dose Admin Acetaminophen 650 mg 05/12/19 12:15 05/13/19 08:44 Tylenol PO 650 mg Q4H PRN Administration Headache/Fever/Mild Pain (1-3) Albuterol/Ipratropium 3 ml 05/12/19 12:15 05/14/19 13:07 Duoneb NEB 3 ml Q2H PRN Administration SOB &/or Wheezing Albuterol/Ipratropium 3 ml 05/13/19 14:30 05/15/19 10:24 Duoneb NEB 3 ml [id number] AFSANEH Administration Enoxaparin Sodium 40 mg 05/13/19 09:00 05/15/19 08:35 Lovenox SC 40 mg 0900 AFSANEH Administration Levofloxacin 750 mg/ Device 150 mls @ 100 mls/hr 05/13/19 11:00 05/15/19 12: 28 IVPB 150 mls 1100 AFSANEH Administration Sodium Chloride 1,000 mls @ 50 mls/hr 05/12/19 13:00 05/15/19 01:00 Normal Saline 0.9% IV Not Given .Q20H AFSANEH Insulin Human Regular 0 units 05/12/19 12:15 05/14/19 16:59 Humulin R SC 4 unit .MODERATE SLIDING SC PRN Administration Moderate Correctional Scale Methylprednisolone Sodium Succinate 40 mg 05/14/19 10:41 05/15/19 12:28 Solu-Medrol IVP 40 mg Q6HR AFSANEH Administration Sodium Chloride 10 ml 05/14/19 21:00 05/15/19 08:36 Flush - Normal Saline IVF 10 ml Q12HR AFSANEH Administration - Exam General Appearance: awake alert Eye: anicteric sclera ENT: normocephalic atraumatic Neck: supple, symmetric, no JVD Heart: RRR Respiratory - other findings: dimished air movement with few rhonchi Gastrointestinal: soft, non-tender, non-distended, normal bowel sounds Extremities: no cyanosis, no edema Neurological: cranial nerve grossly intact, no focal deficits Psychiatric: A&O x 3 Hosp A/P (1) Acute on chronic respiratory failure with hypercapnia Code(s): J96.22 - ACUTE AND CHRONIC RESPIRATORY FAILURE WITH HYPERCAPNIA Status: Acute (2) COPD exacerbation Code(s): J44.1 - CHRONIC OBSTRUCTIVE PULMONARY DISEASE W (ACUTE) EXACERBATION Status: Acute (3) Physical deconditioning Code(s): R53.81 - OTHER MALAISE Status: Acute (4) Tobacco abuse disorder Code(s): Z72.0 - TOBACCO USE Status: Acute (5) Pneumonia Code(s): J18.9 - PNEUMONIA, UNSPECIFIED ORGANISM Status: Acute (6) DM type 2 (diabetes mellitus, type 2) Status: Chronic (7) HTN (hypertension) Code(s): I10 - ESSENTIAL (PRIMARY) HYPERTENSION Status: Chronic (8) Lung infiltrate Code(s): R91.8 - OTHER NONSPECIFIC ABNORMAL FINDING OF LUNG FIELD Status: Acute (9) Acute on chronic respiratory acidosis Code(s): E87.2 - ACIDOSIS Status: Acute - Plan Continue antibiotics, steroid, bronchodilators. Continue BIPAP as per auto finance sales rep Continue gentle IV fluid therapy. Get repeat ABG in the am as well as CBC and CMP
[2019-05-15] MEDS: Insulin Regular 300 UNITS/3 ML VIAL SC PRN ×2 (14:25→17:58)
[2019-05-15] MEDS: Acetaminophen 325 MG TAB PO PRN (23:12)
[2019-05-16 05:25] LABS: Band 6 % (5-11); Hemoglobin 13.7 g/dL (12.0-16.0); Lymphocytes 18 % (21-51); MDiff Complete? YES; Mean Corpuscular HGB CONC 30.8 g/dL (32.0-36.0); Mean Corpuscular Hemoglobin 27.5 pg (27.0-31.0); Mean Corpuscular Volume 89.3 fL (78.0-98.0); Mean Platelet Volume 7.8 fL (7.4-10.4); Monocytes 6 % (0-10); Neutrophil 70 % (42-75); Platelet Count 193 thou/uL (130-400); Platelet Morphology Comment Appears Adequate; Red Blood Cell (RBC) Count 4.99 mill/uL (4.20-5.40); White Blood Cell (WBC) Count 5.2 thou/uL (4.8-10.8)
[2019-05-16 05:26] LABS: ALT (SGPT) 15 U/L (8-55); AST (SGOT) 15 U/L (5-34); Albumin 3.4 g/dL (3.4-4.8); Alkaline Phosphatase 52 U/L (40-110); BUN (Urea Nitrogen) 12 mg/dL (9.8-20.1); Bilirubin, Total 0.2 mg/dL (0.2-1.2); Calc. Creatinine Clearance 92 mL/min (70-130); Calcium 8.9 mg/dL (7.8-10.44); Estimated GFR-MDRD Greater than 90; Globulin 3.3 g/dL (2.4-3.5); Glucose 206 mg/dL (80-115); Protein, Total 6.7 g/dL (6.0-8.3)
[2019-05-16 05:33] LABS: Actual Bicarbonate (HCO3a) 38.1 mEq/L (22-28); Base Excess (BEa) 9.5 mEq/L (-2.0 to +3.0); Calcium, Ionized 1.17 mmol/L (1.12-1.30); Carboxyhemoglobin (COHb) 1.8 gm% (0.0-3.0); Hemoglobin (Hb) 14.3 g/dL (12.0-16.0); Potassium - ABG Lab 4.19 mmol/L (3.70-5.30); pH, Arterial 7.35 (7.35-7.45)
[2019-05-16 05:35] LABS: Anion Gap 8 mmol/L (10-20); Chloride 93 mmol/L (98-107); Potassium 4.2 mmol/L (3.5-5.1); Sodium 140 mmol/L (136-145)
[2019-05-16 05:39] LABS: Carbon Dioxide 43 mmol/L (23-31)
[2019-05-16 05:54] LABS: CO2 Tension 70.6 mmHg (35.0-45.0)
[2019-05-16 05:55] LABS: Puncture Site L RADIAL
[2019-05-16] MEDS: Insulin Regular 300 UNITS/3 ML VIAL SC PRN ×3 (06:12→21:44)
[2019-05-16] MEDS: methylPREDNISolone Sod Succ 40 MG VIAL IVP SCH ×2 (06:12→13:46)
--- NOTE | 2019-05-16 09:20 | PDOC.HOSPP ---
- Subjective Encounter Date: 05/16/19 (f/u resp failure) Encounter Time: 09:18 Subjective: Pt with Shortness of breath this morning when up to bedside commode. She was placed back on bipap briefly, feels more comfortable now and back in bed. Denies any n/v/cp/sob or problems. - Objective Vital Signs & Weight: Vital Signs (12 hours) Temp Pulse Resp BP Pulse Ox 05/16/19 08:05 100 05/16/19 07:30 96.7 F L 05/16/19 07:01 95 23 H 92 L 05/16/19 03:52 99 05/16/19 00:35 97.8 F 86 20 166/90 H 96 05/15/19 23:58 100 Weight Admit Weight 153 lb 3 oz Weight 153 lb 3 oz Most Recent Monitor Data Heart Rate from ECG 83 NIBP 136/86 NIBP BP-Mean 102 Respiration from ECG 24 SpO2 96 I&O: 05/15/19 05/16/19 05/17/19 06:59 06:59 06:59 Intake Total 1030 1050 Output Total 1490 1900 Balance -460 -850 Result Diagrams: 05/16/19 04:44 05/16/19 04:44 Additional Labs: Accuchecks 05/16/19 05/15/19 05/15/19 06:13 21:04 16:07 POC Glucose 175 H 154 H 231 H 05/15/19 10:18 POC Glucose 244 H EKG Reviewed by me: Yes (sinus 100's) Hospitalist ROS - Review of Systems Cardiovascular: reports: chest pain, palpitations, orthopnea, paroxysmal noc. dyspnea, edema, light headedness, other Gastrointestinal: reports: nausea, vomiting, abdominal pain, diarrhea, constipation, melena, hematochezia, other - Medication Medications: Active Medications Generic Name Dose Route Start Last Admin Trade Name Freq PRN Reason Stop Dose Admin Acetaminophen 650 mg 05/12/19 12:15 05/15/19 23:12 Tylenol PO 650 mg Q4H PRN Administration Headache/Fever/Mild Pain (1-3) Albuterol/Ipratropium 3 ml 05/12/19 12:15 05/14/19 13:07 Duoneb NEB 3 ml Q2H PRN Administration SOB &/or Wheezing Albuterol/Ipratropium 3 ml 05/13/19 14:30 05/16/19 07:01 Duoneb NEB 3 ml [id number] AFSANEH Administration Enoxaparin Sodium 40 mg 05/13/19 09:00 05/15/19 08:35 Lovenox SC 40 mg 0900 AFSANEH Administration Levofloxacin 750 mg/ Device 150 mls @ 100 mls/hr 05/13/19 11:00 05/15/19 12: 28 IVPB 150 mls 1100 AFSANEH Administration Insulin Human Regular 0 units 05/12/19 12:15 05/16/19 06:12 Humulin R SC 2 unit .MODERATE SLIDING SC PRN Administration Moderate Correctional Scale Methylprednisolone Sodium Succinate 40 mg 05/14/19 10:41 05/16/19 06:12 Solu-Medrol IVP 40 mg Q6HR AFSANEH Administration Sodium Chloride 10 ml 05/14/19 21:00 05/15/19 21:00 Flush - Normal Saline IVF 10 ml Q12HR AFSANEH Administration - Exam General Appearance: NAD Heart: RRR, no murmur Heart - other findings: distant heart sounds Respiratory - other findings: fair air movement with audible bibasilar rales to mid-lung field Gastrointestinal: soft, non-tender, non-distended, normal bowel sounds, no palpable masses Extremities: no cyanosis, no clubbing, no edema Skin - other findings: port wine stain on left hand Psychiatric: normal affect Hosp A/P (1) Acute on chronic respiratory failure with hypercapnia Code(s): J96.22 - ACUTE AND CHRONIC RESPIRATORY FAILURE WITH HYPERCAPNIA Status: Acute (2) Physical deconditioning Code(s): R53.81 - OTHER MALAISE Status: Chronic (3) Pneumonia Code(s): J18.9 - PNEUMONIA, UNSPECIFIED ORGANISM Status: Acute Qualifiers: Pneumonia type: due to unspecified organism Laterality: bilateral (4) Tobacco abuse disorder Code(s): Z72.0 - TOBACCO USE Status: Chronic (5) COPD exacerbation Code(s): J44.1 - CHRONIC OBSTRUCTIVE PULMONARY DISEASE W (ACUTE) EXACERBATION Status: Acute (6) DM type 2 (diabetes mellitus, type 2) Status: Chronic Qualifiers: Diabetes mellitus fci insulin use: without long wall mining machine helper use (7) HTN (hypertension) Code(s): I10 - ESSENTIAL (PRIMARY) HYPERTENSION Status: Chronic Qualifiers: Hypertension type: essential hypertension Qualified Code(s): I10 - Essential (primary) hypertension - Plan appreciate Pulmonology consult - on steroids, nebs, antibiotics and bipap prn Rales on exam - check BNP and echo, d/c IVF - hold on diuresis due to elevated bicarb level PT/OT - resume home meds - amlodipine with hold parameters, half usual dose of lisinopril with hold parameters, pletal and aspirin - nurse confirmed that pt does take this at home and is only intolerant of full dose aspirin dvt prophy - scd's gi prophy - on H2 shirin code status full reviewed plan of care with patient, no questions or further needs at end of eval pt remains at high risk in current condition
[2019-05-16] MEDS: Amlodipine 10 MG TAB PO SCH (11:07)
[2019-05-16] MEDS: Enoxaparin Sodium 40 MG/0.4 ML SYRINGE SC SCH (11:08)
[2019-05-16] MEDS ORDERED: acetaZOLAMIDE Sodium 500 mg Vial IVP SCH (13:45)
[2019-05-16] MEDS ORDERED: Bacteriostatic Normal Saline 30 ML VIAL ONE (13:55)
--- NOTE | 2019-05-16 14:20 | PRG ---
DATE OF SERVICE: 05/16/2019 SERVICE: Pulmonary Medicine. INTERVAL HISTORY: The patient is doing fine from respiratory standpoint. This morning, an ABG was performed, demonstrating chronic hypercapnic failure without any evidence of acute respiratory component. She was not short of breath. Either way, she got put back on BiPAP. At this point, she is on a BiPAP break. She is breathing nice and slowly, indicates that her strength and shortness of breath have essentially resolved. PHYSICAL EXAMINATION: VITAL SIGNS: Afebrile, pulse 89, blood pressure 163/104, respirations 23, and saturation 98%, currently on 3 L nasal cannula. GENERAL: The patient is awake and alert, in no apparent distress. LUNGS: Decent air entry. There is a prolonged expiratory phase and crackles, both present. HEART: Normal rate, regular. ABDOMEN: Soft, nontender, and nondistended. Bowel sounds are positive. MUSCULOSKELETAL: No cyanosis or clubbing. There is no pitting in the bilateral lower extremities. She has 1 to 2+ pitting in the bilateral upper extremities. NEUROLOGIC: Grossly nonfocal. LABORATORY DATA: WBC 5.2, hemoglobin 13.7, and platelets 196,000. PH 7.35, pCO2 of 70, PO2 of 83, corresponding to saturation of 97%. Bicarb 43, chloride 93. Basic metabolic profile and liver function studies are otherwise unremarkable. BNP 261. Urinalysis is unremarkable. Sputum culture is negative. There is multiple conner present. Moderate yeast and moderate gram-positive cocci in clusters were also noted. IMAGING: Chest x-ray demonstrates interstitial infiltrates that are present. It is slightly worse in the right compared to the left. No obvious effusion is noted. ASSESSMENT: 1. Acute on chronic hypoxic and hypercapnic respiratory failure, returned to baseline. 2. Chronic obstructive pulmonary disease with acute exacerbation. DISCUSSION AND PLAN: We will switch the patient's steroids over to p.o. prednisone. We will give her a break off the BiPAP permanently. If she tolerates this overnight, she can be transitioned to the floor tomorrow morning. Critical Care will continue to follow along. We will continue other supportive measures including antibiotics and nebulized medications. On discharge from the hospital, she may benefit from a home ventilator. Job ID: [id number]
[2019-05-16] MEDS: Cilostazol 100 MG TAB PO SCH (21:44)
[2019-05-16] MEDS: Lisinopril 20 MG TAB PO SCH (21:44)
[2019-05-16] MEDS: Aspirin 81 mg Enteric Coated Tablet PO SCH (21:44)
[2019-05-17 05:04] LABS: #Lymphocytes 2.1 thou/uL (1.20-3.40); %Basophils 0.2 % (0.0-1.0); %Eosinophils 0.5 % (0.0-10.0); %Monocytes 11.7 % (0.0-10.0); %Neutrophils 61.5 % (42.0-75.0); Hemoglobin 14.2 g/dL (12.0-16.0); Mean Corpuscular Hemoglobin 27.9 pg (27.0-31.0); Mean Corpuscular Volume 89.7 fL (78.0-98.0); Mean Platelet Volume 7.7 fL (7.4-10.4); Platelet Count 206 thou/uL (130-400); Red Blood Cell (RBC) Count 5.09 mill/uL (4.20-5.40); White Blood Cell (WBC) Count 8.2 thou/uL (4.8-10.8)
[2019-05-17 05:27] LABS: BUN (Urea Nitrogen) 15 mg/dL (9.8-20.1); Calc. Creatinine Clearance 89 mL/min (70-130); Estimated GFR-MDRD 89; Glucose 99 mg/dL (80-115)
[2019-05-17 05:37] LABS: Anion Gap 11 mmol/L (10-20); Carbon Dioxide 36 mmol/L (23-31); Chloride 97 mmol/L (98-107); Potassium 3.8 mmol/L (3.5-5.1); Sodium 140 mmol/L (136-145)
[2019-05-17] MEDS: Amlodipine 10 MG TAB PO SCH (08:45)
[2019-05-17] MEDS: Aspirin 81 mg Enteric Coated Tablet PO SCH ×2 (08:45→21:09)
[2019-05-17] MEDS: predniSONE 20 MG TAB PO SCH (08:45)
[2019-05-17] MEDS: Enoxaparin Sodium 40 MG/0.4 ML SYRINGE SC SCH (08:47)
--- NOTE | 2019-05-17 09:23 | PDOC.HOSPP ---
- Subjective Encounter Date: 05/17/19 (f/u resp failure) Encounter Time: 09:21 Subjective: Pt reports feeling better, no need for bipap overnight. Has some pain along the lower right side of chest - states it is new, unable to describe how it feels. denies n/v/abd pain, reports decreased appetite - Objective Vital Signs & Weight: Vital Signs (12 hours) Temp Pulse Resp BP Pulse Ox 05/17/19 08:45 102 H 140/68 05/17/19 07:55 96 05/17/19 07:49 102 H 21 H 96 05/17/19 07:27 97.6 F 05/17/19 04:01 97.2 F L 05/17/19 03:37 97 05/16/19 23:44 97.3 F L 05/16/19 23:18 98 05/16/19 21:44 136/71 Weight Admit Weight 153 lb 3 oz Weight 153 lb 3 oz Most Recent Monitor Data Heart Rate from ECG 79 NIBP 121/55 NIBP BP-Mean 77 Respiration from ECG 19 SpO2 98 I&O: 05/16/19 05/17/19 05/18/19 06:59 06:59 06:59 Intake Total 1050 1690 Output Total 1900 2550 Balance -850 -860 Result Diagrams: 05/17/19 04:38 05/17/19 04:38 Additional Labs: Accuchecks 05/17/19 05/16/19 05/16/19 06:02 20:11 16:41 POC Glucose 108 209 H 146 H 05/16/19 10:37 POC Glucose 208 H EKG Reviewed by me: Yes (tele - sinus 90's) Hospitalist ROS - Medication Medications: Active Medications Generic Name Dose Route Start Last Admin Trade Name Freq PRN Reason Stop Dose Admin Acetaminophen 650 mg 05/12/19 12:15 05/15/19 23:12 Tylenol PO 650 mg Q4H PRN Administration Headache/Fever/Mild Pain (1-3) Albuterol/Ipratropium 3 ml 05/12/19 12:15 05/16/19 16:44 Duoneb NEB 3 ml Q2H PRN Administration SOB &/or Wheezing Albuterol/Ipratropium 3 ml 05/13/19 14:30 05/17/19 07:49 Duoneb NEB 3 ml [id number] AFSANEH Administration Amlodipine Besylate 10 mg 05/16/19 09:00 05/17/19 08:45 Norvasc PO 10 mg DAILY AFSANHE Administration Aspirin 81 mg 05/16/19 21:00 05/17/19 08:45 Ecotrin PO 81 mg BID AFSANEH Administration Cilostazol 100 mg 05/16/19 21:00 05/16/19 21:44 Pletal PO 100 mg HS AFSANEH Administration Enoxaparin Sodium 40 mg 05/13/19 09:00 05/17/19 08:47 Lovenox SC 40 mg 0900 AFSANEH Administration Levofloxacin 750 mg/ Device 150 mls @ 100 mls/hr 05/13/19 11:00 05/16/19 11: 08 IVPB 150 mls 1100 AFSANEH Administration Insulin Human Regular 0 units 05/12/19 12:15 05/16/19 21:44 Humulin R SC 4 unit .MODERATE SLIDING SC PRN Administration Moderate Correctional Scale Lisinopril 20 mg 05/16/19 21:00 05/16/19 21:44 Zestril PO 20 mg HS AFSANEH Administration Prednisone 40 mg 05/17/19 08:00 05/17/19 08:45 Prednisone PO 40 mg QAM-WM AFSANEH Administration Sodium Chloride 10 ml 05/14/19 21:00 05/17/19 08:47 Flush - Normal Saline IVF 10 ml Q12HR AFSANEH Administration - Exam General Appearance: NAD Heart: RRR, no murmur Heart - other findings: distant heart sounds, no audible murmurs Respiratory - other findings: fair air movement, slight basilar rales on left side, exp wheezing Gastrointestinal: soft, non-tender, non-distended, normal bowel sounds Extremities: no cyanosis, no clubbing, no edema Musculoskeletal: normal tone Psychiatric: normal affect Hosp A/P (1) Acute on chronic respiratory failure with hypercapnia Code(s): J96.22 - ACUTE AND CHRONIC RESPIRATORY FAILURE WITH HYPERCAPNIA Status: Acute (2) Physical deconditioning Code(s): R53.81 - OTHER MALAISE Status: Chronic (3) Pneumonia Code(s): J18.9 - PNEUMONIA, UNSPECIFIED ORGANISM Status: Acute Qualifiers: Pneumonia type: due to unspecified organism Laterality: bilateral (4) Tobacco abuse disorder Code(s): Z72.0 - TOBACCO USE Status: Chronic (5) COPD exacerbation Code(s): J44.1 - CHRONIC OBSTRUCTIVE PULMONARY DISEASE W (ACUTE) EXACERBATION Status: Acute (6) DM type 2 (diabetes mellitus, type 2) Status: Chronic Qualifiers: Diabetes mellitus long term care phlebotomist insulin use: without care home use (7) HTN (hypertension) Code(s): I10 - ESSENTIAL (PRIMARY) HYPERTENSION Status: Chronic Qualifiers: Hypertension type: essential hypertension Qualified Code(s): I10 - Essential (primary) hypertension (8) Aortic stenosis Code(s): I35.0 - NONRHEUMATIC AORTIC (VALVE) STENOSIS Status: Acute Qualifiers: Cardiac valve disease etiology: etiology unspecified Qualified Code(s): I35.0 - Nonrheumatic aortic (valve) stenosis - Plan appreciate Pulmonology consult - on steroids, nebs, antibiotics and bipap prn - 5th dose of levaquin today - will d/c after that - steroids changed to oral yesterday - move to telemetry Rales on exam improved, s/p acetazolamide yesterday Cardiology consult for new dx of mod-severe Aortic stenosis - pt does not recall this dx in the past PT/ot - based on progress with ambulation, may need to consider SNF uncertain etiology of focal right chest pain - tylenol prn. - continue home meds - amlodipine with hold parameters, half usual dose of lisinopril with hold parameters, pletal and aspirin - nurse confirmed that pt does take this at home and is only intolerant of full dose aspirin dvt prophy - scd's gi prophy - on H2 shirin code status full reviewed plan of care with patient, no questions or further needs at end of eval pt remains at high risk in current condition
--- NOTE | 2019-05-17 13:42 | PRG ---
DATE OF SERVICE: 05/17/2019 SUBJECTIVE: Edwige Acosta has no complaints. OBJECTIVE: GENERAL: She is in no distress. VITAL SIGNS: Heart rate is 102, blood pressure 128/69, and respiratory rate is 18. LUNGS: Distant and clear. HEART: Regular rhythm. S1 and S2 are normal. She has a grade 3/6 systolic murmur. ABDOMEN: Soft. DIAGNOSTIC DATA: Echocardiogram showed normal ejection fraction, diastolic dysfunction, and [id number] aortic stenosis. IMPRESSION: 1. Chronic obstructive pulmonary disease exacerbation. 2. Aortic stenosis. PLAN: Transfer out of Intermediate Care Unit. Job ID: [id number]
--- NOTE | 2019-05-17 17:08 | CON ---
DATE OF CONSULTATION: HISTORY OF PRESENT ILLNESS: The patient is a 69-year-old woman, who presented with increasing dyspnea. The patient has no previous cardiac history. She has a long history of COPD and tobacco abuse. The patient presented once again with dyspnea.She was noted to have an abnormal echocardiogram. The patient denies having any chest discomfort. She denies having any PND or orthopnea. PAST MEDICAL HISTORY: 1. COPD. 2. Diabetes mellitus. 3. Hypertension. PAST SURGICAL HISTORY: Tracheostomy. SOCIAL HISTORY: Long history of tobacco abuse. ALLERGIES: PENICILLIN, CODEINE, AND ASPIRIN. FAMILY HISTORY: Positive for family history of coronary artery disease. MEDICATIONS: See nursing list. REVIEW OF SYSTEMS: Ten-point system otherwise unremarkable. PHYSICAL EXAMINATION: GENERAL: This is a well-developed woman, in no acute distress. VITAL SIGNS: Blood pressure of 146/71. NECK: No jugular venous distention. LUNGS: Bilateral wheezes. HEART: Regular rate and rhythm. Normal S1 and S2. A 1/6 systolic murmur. ABDOMEN: Distended. EXTREMITIES: No edema. VASCULAR: Radial pulses 2+. LABORATORY DATA: Sodium 140, potassium 3.8, chloride 97, BUN 15, creatinine was 0.66. Her BNP is 261. Her white blood cell count 8.2, hemoglobin 14.2, hematocrit 45.7, and platelets 217. Her EKG reveals her to have normal sinus rhythm with poor R-wave progression, suggestive of a possible previous anterior infarct. Echocardiogram revealed normal left ventricular ejection fraction 50% to 55%, with [id number] aortic stenosis and moderate aortic regurgitation. IMPRESSION: 1. Chronic obstructive pulmonary disease exacerbation. 2. Moderate aortic valvular heart disease. 3. Diabetes mellitus. 4. Hypertension. 5. Tobacco abuse. This patient has moderate valvular heart disease. Her gradient is not significantly elevated on echocardiogram. From a cardiac standpoint, she has multiple risk factors for coronary artery disease. We would recommend adding lipid lowering medication. I will follow this patient with you through her hospitalization. Job ID: [id number] [facility]
[2019-05-17] MEDS: Insulin Regular 300 UNITS/3 ML VIAL SC PRN ×2 (18:19→21:10)
[2019-05-17] MEDS: Lisinopril 20 MG TAB PO SCH (21:10)
[2019-05-17] MEDS: Cilostazol 100 MG TAB PO SCH (21:10)
[2019-05-17] MEDS: Atorvastatin Calcium 40 MG TAB PO SCH (21:10)
[2019-05-18] MEDS: Amlodipine 10 MG TAB PO SCH (12:08)
[2019-05-18] MEDS: predniSONE 20 MG TAB PO SCH (12:09)
[2019-05-18] MEDS: Aspirin 81 mg Enteric Coated Tablet PO SCH ×2 (12:09→20:29)
--- NOTE | 2019-05-18 13:43 | PDOC.HOSPP ---
- Subjective Encounter Date: 05/18/19 (f/u copd exac) Encounter Time: 13:42 Subjective: 69 y/o female now on HD7 for acute on chronic respiratory failure with hypoxia secondary to COPD exacerbation. pt worked with OT this morning and was very short of breath. She denies any further chest pain. Denies n/v/abd pain or new concerns. - Objective Vital Signs & Weight: Vital Signs (12 hours) Temp Pulse Pulse Pulse Resp BP BP 05/18/19 12:08 92 05/18/19 12:00 96.6 F L 91 20 05/18/19 10:21 103 H 105 H 149/77 H 151/63 H 05/18/19 08:00 97.2 F L 97 24 H 05/18/19 07:00 BP Pulse Ox Pulse Ox Pulse Ox 05/18/19 12:08 05/18/19 12:00 128/76 96 05/18/19 10:21 94 L 91 L 05/18/19 08:00 140/61 96 05/18/19 07:00 96 Weight Admit Weight 153 lb 3 oz Weight 153 lb 3 oz Most Recent Monitor Data Heart Rate from ECG 83 NIBP 133/63 NIBP BP-Mean 86 Respiration from ECG 19 SpO2 96 I&O: 05/17/19 05/18/19 05/19/19 06:59 06:59 06:59 Intake Total 1690 500 Output Total 2550 400 Balance -860 100 Result Diagrams: 05/18/19 04:19 05/18/19 04:43 Additional Labs: Accuchecks 05/18/19 05/18/19 05/17/19 10:52 05:37 20:47 POC Glucose 209 H 135 H 202 H 05/17/19 16:30 POC Glucose 223 H today's labs - 137/3.9/99/34/17/0.64/130 CBC - 8/14.6/46/182 EKG Reviewed by me: Yes (tele - sinus 80's) Hospitalist ROS - Medication Medications: Active Medications Generic Name Dose Route Start Last Admin Trade Name Freq PRN Reason Stop Dose Admin Acetaminophen 650 mg 05/12/19 12:15 05/15/19 23:12 Tylenol PO 650 mg Q4H PRN Administration Headache/Fever/Mild Pain (1-3) Albuterol/Ipratropium 3 ml 05/12/19 12:15 05/16/19 16:44 Duoneb NEB 3 ml Q2H PRN Administration SOB &/or Wheezing Albuterol/Ipratropium 3 ml 05/13/19 14:30 05/18/19 10:34 Duoneb NEB 3 ml [id number] AFSANEH Administration Amlodipine Besylate 10 mg 05/16/19 09:00 05/18/19 12:08 Norvasc PO Not Given DAILY AFSANEH Aspirin 81 mg 05/16/19 21:00 05/18/19 12:09 Ecotrin PO Not Given BID AFSANEH Atorvastatin Calcium 40 mg 05/17/19 21:00 05/17/19 21:10 Lipitor PO 40 mg HS AFSANEH Administration Cilostazol 100 mg 05/16/19 21:00 05/17/19 21:10 Pletal PO 100 mg HS AFSANEH Administration Insulin Human Regular 0 units 05/12/19 12:15 05/17/19 21:10 Humulin R SC 4 unit .MODERATE SLIDING SC PRN Administration Moderate Correctional Scale Lisinopril 20 mg 05/16/19 21:00 05/17/19 21:10 Zestril PO 20 mg HS AFSANEH Administration Prednisone 40 mg 05/17/19 08:00 05/18/19 12:09 Prednisone PO Not Given QAM-WM AFSANEH Sodium Chloride 10 ml 05/14/19 21:00 05/18/19 12:09 Flush - Normal Saline IVF Not Given Q12HR AFSANEH - Exam General Appearance: NAD Heart: RRR, no murmur Respiratory: tachypneic, wheezes Respiratory - other findings: fair air movement, faint rales on exam Gastrointestinal: soft, non-tender, non-distended, normal bowel sounds Extremities: no cyanosis, no clubbing, no edema Psychiatric: normal affect Hosp A/P (1) Acute on chronic respiratory failure with hypercapnia Code(s): J96.22 - ACUTE AND CHRONIC RESPIRATORY FAILURE WITH HYPERCAPNIA Status: Acute (2) Physical deconditioning Code(s): R53.81 - OTHER MALAISE Status: Chronic (3) Pneumonia Code(s): J18.9 - PNEUMONIA, UNSPECIFIED ORGANISM Status: Acute Qualifiers: Pneumonia type: due to unspecified organism Laterality: bilateral (4) Tobacco abuse disorder Code(s): Z72.0 - TOBACCO USE Status: Chronic (5) COPD exacerbation Code(s): J44.1 - CHRONIC OBSTRUCTIVE PULMONARY DISEASE W (ACUTE) EXACERBATION Status: Acute (6) DM type 2 (diabetes mellitus, type 2) Status: Chronic Qualifiers: Diabetes mellitus chcf insulin use: without chcf use (7) HTN (hypertension) Code(s): I10 - ESSENTIAL (PRIMARY) HYPERTENSION Status: Chronic Qualifiers: Hypertension type: essential hypertension Qualified Code(s): I10 - Essential (primary) hypertension (8) Aortic stenosis Code(s): I35.0 - NONRHEUMATIC AORTIC (VALVE) STENOSIS Status: Acute Qualifiers: Cardiac valve disease etiology: etiology unspecified Qualified Code(s): I35.0 - Nonrheumatic aortic (valve) stenosis - Plan appreciate Pulmonology consult - on steroids, nebs, antibiotics and bipap prn - has received 5 doses of levaquin - med d/c - oral steroids - transfer to medical floor - no indication to continue telemetry - pt very short of breath after working with OT - do not think she is a candidate for discharge to home. Rales on exam improved Cardiology consult appreciated - moderate , lipid lowering medication added. PT/OT - based on progress with ambulation, may need to consider SNF - will place case management consult bp's well controlled -continue amlodipine and half of home dose of lisinopril dvt prophy - scd's gi prophy - on H2 shirin code status full reviewed plan of care with patient, no questions or further needs at end of eval pt remains at high risk in current condition
[2019-05-18] MEDS: Insulin Regular 300 UNITS/3 ML VIAL SC PRN (17:16)
[2019-05-18 17:55] LABS: Anion Gap 8 mmol/L (10-20); BUN (Urea Nitrogen) 17 mg/dL (9.8-20.1); Calc. Creatinine Clearance 92 mL/min (70-130); Carbon Dioxide 34 mmol/L (23-31); Chloride 99 mmol/L (98-107); Estimated GFR-MDRD Greater than 90; Glucose 130 mg/dL (80-115); Potassium 3.9 mmol/L (3.5-5.1); Sodium 137 mmol/L (136-145)
[2019-05-18 18:19] LABS: Hemoglobin 14.6 g/dL (12.0-16.0); Mean Corpuscular HGB CONC 31.7 g/dL (32.0-36.0); Mean Corpuscular Volume 88.4 fL (78.0-98.0); Platelet Count 182 thou/uL (130-400); RBC Distribution Width 15.3 % (11.5-14.5); Red Blood Cell (RBC) Count 5.21 mill/uL (4.20-5.40)
[2019-05-18 18:20] LABS: #Lymphocytes 2.3 thou/uL (1.20-3.40); #Monocytes 0.8 thou/uL (0.11-0.59); #Neutrophils 4.9 thou/uL (1.40-6.50); %Basophils 0.2 % (0.0-1.0); %Eosinophils 0.4 % (0.0-10.0); %Lymphocytes 28.5 % (21.0-51.0); %Monocytes 10.1 % (0.0-10.0); %Neutrophils 60.8 % (42.0-75.0); Mean Platelet Volume 8.2 fL (7.4-10.4)
[2019-05-18] MEDS: Atorvastatin Calcium 40 MG TAB PO SCH (20:29)
[2019-05-18] MEDS: Lisinopril 20 MG TAB PO SCH (20:29)
[2019-05-18] MEDS: Cilostazol 100 MG TAB PO SCH (20:29)
--- NOTE | 2019-05-18 21:26 | PRG ---
DATE OF SERVICE: 05/18/2019 SUBJECTIVE: Ms. Acosta says that she is scheduled to have a cardiac catheterization. I asked her she thought she could lay down flat and she is not sure. I have asked her in the morning to try to lay in her back in bed all the way back to see if she can lie flat for 30 to 45 minutes comfortably. OBJECTIVE: LUNGS: She is not wheezing today. HEART: Regular rhythm. Murmur is still present. ABDOMEN: Soft. ASSESSMENT AND PLAN: 1. Aortic stenosis. 2. ?Coronary artery disease. 3. Chronic obstructive pulmonary disease with no smoking since her last hospital admission. Her chronic obstructive pulmonary disease exacerbation has improved significantly. She is on p.o. steroids and nebulized treatments every 4 hours. We will continue to follow. Job ID: [id number] [facility]
[2019-05-19 06:03] LABS: #Eosinphils 0.1 thou/uL (0.0-0.7); #Lymphocytes 1.9 thou/uL (1.20-3.40); #Monocytes 0.6 thou/uL (0.11-0.59); #Neutrophils 5.5 thou/uL (1.40-6.50); %Basophils 0.2 % (0.0-1.0); %Eosinophils 0.9 % (0.0-10.0); %Lymphocytes 23.4 % (21.0-51.0); %Monocytes 7.8 % (0.0-10.0); %Neutrophils 67.7 % (42.0-75.0); Hemoglobin 13.8 g/dL (12.0-16.0); Mean Corpuscular HGB CONC 31.4 g/dL (32.0-36.0); Mean Corpuscular Hemoglobin 27.8 pg (27.0-31.0); Mean Corpuscular Volume 88.6 fL (78.0-98.0); Platelet Count 222 thou/uL (130-400); RBC Distribution Width 15.1 % (11.5-14.5); Red Blood Cell (RBC) Count 4.97 mill/uL (4.20-5.40); White Blood Cell (WBC) Count 8.1 thou/uL (4.8-10.8)
[2019-05-19 06:27] LABS: BUN (Urea Nitrogen) 12 mg/dL (9.8-20.1); Calc. Creatinine Clearance 97 mL/min (70-130); Calcium 8.9 mg/dL (7.8-10.44); Estimated GFR-MDRD Greater than 90; Glucose 154 mg/dL (80-115)
[2019-05-19 06:36] LABS: Anion Gap 11 mmol/L (10-20); Carbon Dioxide 35 mmol/L (23-31); Chloride 98 mmol/L (98-107); Potassium 3.7 mmol/L (3.5-5.1); Sodium 140 mmol/L (136-145)
[2019-05-19] MEDS: predniSONE 20 MG TAB PO SCH (10:24)
[2019-05-19] MEDS: Amlodipine 10 MG TAB PO SCH (10:25)
[2019-05-19] MEDS: Aspirin 81 mg Enteric Coated Tablet PO SCH ×2 (10:26→20:18)
[2019-05-19] MEDS: Insulin Regular 300 UNITS/3 ML VIAL SC PRN ×3 (13:29→22:39)
--- NOTE | 2019-05-19 16:13 | PDOC.HOSPP ---
- Subjective Subjective: Seen and examined. Patient ambulating the halls with the help of physical therapy and from wheel walker. Patient does get short of breath with much movement. No other acute complaints. Patient complains of bruising of the arms from lab draws. - Objective Vital Signs & Weight: Vital Signs (12 hours) Temp Pulse Resp BP BP Pulse Ox 05/19/19 12:10 98.2 F 93 20 133/72 96 05/19/19 10:25 106 H 131/68 05/19/19 10:20 81 16 96 05/19/19 08:00 96 05/19/19 07:50 98.2 F 106 H 22 H 131/68 96 05/19/19 06:34 79 14 97 05/19/19 05:19 97.9 F 100 20 110/72 93 L Weight Admit Weight 153 lb 3 oz Weight 153 lb 3 oz Most Recent Monitor Data Heart Rate from ECG 96 NIBP 129/81 NIBP BP-Mean 97 Respiration from ECG 32 SpO2 99 I&O: 05/18/19 05/19/19 05/20/19 06:59 06:59 06:59 Intake Total 500 440 Output Total 400 400 Balance 100 -400 440 Result Diagrams: 05/19/19 05:39 05/19/19 05:39 Additional Labs: Accuchecks 05/19/19 05/19/19 05/18/19 12:14 05:21 20:13 POC Glucose 195 H 148 H 140 H 05/18/19 16:37 POC Glucose 210 H Radiology Reviewed by me: Yes Hospitalist ROS - Review of Systems All other systems reviewed; all pertinent +/- noted in HPI/Subj - Medication Medications: Active Medications Generic Name Dose Route Start Last Admin Trade Name Freq PRN Reason Stop Dose Admin Acetaminophen 650 mg 05/12/19 12:15 05/15/19 23:12 Tylenol PO 650 mg Q4H PRN Administration Headache/Fever/Mild Pain (1-3) Albuterol/Ipratropium 3 ml 05/12/19 12:15 05/16/19 16:44 Duoneb NEB 3 ml Q2H PRN Administration SOB &/or Wheezing Albuterol/Ipratropium 3 ml 05/13/19 14:30 05/19/19 13:58 Duoneb NEB 3 ml [id number] AFSANEH Administration Amlodipine Besylate 10 mg 05/16/19 09:00 05/19/19 10:25 Norvasc PO 10 mg DAILY AFSANEH Administration Aspirin 81 mg 05/16/19 21:00 05/19/19 10:26 Ecotrin PO 81 mg BID AFSANEH Administration Atorvastatin Calcium 40 mg 05/17/19 21:00 05/18/19 20:29 Lipitor PO 40 mg HS AFSANEH Administration Cilostazol 100 mg 05/16/19 21:00 05/18/19 20:29 Pletal PO 100 mg HS AFSANEH Administration Insulin Human Regular 0 units 05/12/19 12:15 05/19/19 13:29 Humulin R SC 2 unit .MODERATE SLIDING SC PRN Administration Moderate Correctional Scale Lisinopril 20 mg 05/16/19 21:00 05/18/19 20:29 Zestril PO 20 mg HS AFSANEH Administration Prednisone 40 mg 05/17/19 08:00 05/19/19 10:24 Prednisone PO 40 mg QAM-WM AFSANEH Administration Sodium Chloride 10 ml 05/14/19 21:00 05/19/19 10:26 Flush - Normal Saline IVF 10 ml Q12HR AFSANEH Administration - Exam General Appearance: NAD, awake alert Eye: anicteric sclera ENT: normocephalic atraumatic, moist mucosa Neck: supple, symmetric, no lymphadenopathy Heart: no gallops, no rubs, murmur present (Aortic stenosis) Respiratory: CTAB, no rales, no ronchi, normal chest expansion, wheezes (mild scattered) Gastrointestinal: soft, non-tender, non-distended, no guarding, no rigidity Extremities: 1+ LE edema Skin: no lesions, no rashes Neurological: cranial nerve grossly intact, normal sensation to touch, no focal deficits Musculoskeletal: generalized weakness Psychiatric: A&O x 3, flat affect Hosp A/P (1) Acute on chronic respiratory acidosis Code(s): E87.2 - ACIDOSIS Status: Acute (2) Acute on chronic respiratory failure with hypercapnia Code(s): J96.22 - ACUTE AND CHRONIC RESPIRATORY FAILURE WITH HYPERCAPNIA Status: Acute (3) Aortic stenosis Code(s): I35.0 - NONRHEUMATIC AORTIC (VALVE) STENOSIS Status: Acute Qualifiers: Cardiac valve disease etiology: etiology unspecified Qualified Code(s): I35.0 - Nonrheumatic aortic (valve) stenosis (4) Lung infiltrate Code(s): R91.8 - OTHER NONSPECIFIC ABNORMAL FINDING OF LUNG FIELD Status: Acute (5) Pneumonia Code(s): J18.9 - PNEUMONIA, UNSPECIFIED ORGANISM Status: Acute Qualifiers: Pneumonia type: due to unspecified organism Laterality: bilateral (6) Physical deconditioning Code(s): R53.81 - OTHER MALAISE Status: Chronic (7) Tobacco abuse disorder Code(s): Z72.0 - TOBACCO USE Status: Chronic (8) Acute on chronic diastolic (congestive) heart failure Code(s): I50.33 - ACUTE ON CHRONIC DIASTOLIC (CONGESTIVE) HEART FAILURE Status : Acute (9) COPD exacerbation Code(s): J44.1 - CHRONIC OBSTRUCTIVE PULMONARY DISEASE W (ACUTE) EXACERBATION Status: Acute (10) DM type 2 (diabetes mellitus, type 2) Status: Chronic Qualifiers: Diabetes mellitus assisted insulin use: without buttermaker continuous churn use (11) HTN (hypertension) Code(s): I10 - ESSENTIAL (PRIMARY) HYPERTENSION Status: Chronic Qualifiers: Hypertension type: essential hypertension Qualified Code(s): I10 - Essential (primary) hypertension - Plan Plan: medical unit pulmonology consultation, recommendations appreciated cardiology consultation, recommendations appreciated patient has completed a full course of antibiotics oral steroids patient with echocardiogram demonstrating aortic stenosis patient has numerous risk factors for coronary artery disease patient may require cardiac catheterization as inpatient versus outpatient continue other home medications as able breathing treatments DVT prophylaxis G.I. prophylaxis
[2019-05-19] MEDS: Cilostazol 100 MG TAB PO SCH (20:18)
[2019-05-19] MEDS: Atorvastatin Calcium 40 MG TAB PO SCH (20:18)
[2019-05-19] MEDS: Lisinopril 20 MG TAB PO SCH (20:18)
[2019-05-20] MEDS: predniSONE 20 MG TAB PO SCH (08:24)
[2019-05-20] MEDS: Amlodipine 10 MG TAB PO SCH (08:24)
[2019-05-20] MEDS: Aspirin 81 mg Enteric Coated Tablet PO SCH (08:24)
--- NOTE | 2019-05-20 08:40 | PRG ---
DATE OF SERVICE: 05/19/2019 Ms. Moser is not in acute distress. OBJECTIVE: VITAL SIGNS: Afebrile, heart rate is blood pressure 131/63. LUNGS: Clear. HEART: Regular rhythm. ABDOMEN: Soft. LABORATORY DATA: White count 8.1, hemoglobin 13.8, platelets 222,000, sodium 140, potassium 3.7, chloride 98, bicarb 35, BUN 12, and creatinine 0.61. IMPRESSION: 1. Aortic stenosis. 2. ?Coronary disease. 3. Chronic obstructive pulmonary disease. 1. Deconditioning a big factor now. 2. COPD appears to be reasonably stable at this point. 3. She is to continue nebulized treatments every 4 hours. She is on 40 of prednisone. Probably this weekend she could have her prednisone tapered a little bit. Job ID: [id number]
[2019-05-20] MEDS: Insulin Regular 300 UNITS/3 ML VIAL SC PRN (11:43)
--- NOTE | 2019-05-20 13:26 | PRG ---
DATE OF SERVICE: 05/20/2019 SUBJECTIVE: Ms. Acosta is afebrile. OBJECTIVE: VITAL SIGNS: Heart rate is 93, respiratory rate is 20, and oximetry is 93% to 95% on 4 L. LUNGS: Clear. HEART: Regular rhythm. ABDOMEN: Soft. She tells me she had chest discomfort last night. LABORATORY DATA: White count yesterday was normal. There is no lab other than blood glucoses today. IMPRESSION: Inoperable coronary artery disease. Dr. Monson informed the patient that she needs to be in the hospital for few more days. I will follow her along and see her again on Thursday. She just weaned off Levophed yesterday, so she probably should remain in the hospital per Dr. Monson's discussion with her and her son. Job ID: [id number]
[2019-05-20 13:53] VITALS: BP 105/55; TEMP 98
--- NOTE | 2019-05-21 03:56 | PQF ---
DAVID URENA THOMAS MD [id number] CLINICAL DOCUMENTATION CLARIFICATION FORM: POST DISCHARGE Addendum to original discharge summary date: ____ Late entry note date: __ DATE: 05/21/19 ATTN: Corby Boss Please exercise your independent, professional judgment in responding to the clarification form. Clinical indicators are provided on the bottom of this form for your review Please check appropriate box(es): [ ] Sepsis due to Pneumonia [ ] SIRS due to non-infectious process (please specify etiology) [ ] with organ dysfunction [ ] without organ dysfunction [ ] Severe sepsis with acute organ dysfunction of: (Examples: respiratory failure, encephalopathy, acute kidney failure, other) [ ] Septic Shock [ ] Localized infection without sepsis [ ] Other diagnosis [ ] Unable to determine In addition, please specify: Present on Admission (POA): [ ] Yes [ ] No [ ] Unable to determine For continuity of documentation, please document condition throughout progress notes and discharge summary. Thank You. CLINICAL INDICATORS - SIGNS / SYMPTOMS / LABS PN 05/14 "gram positive cocci noted on sputum grain stain" ED Vital signs 05/12: BP 104/45 Respi: 20 Pulse: 96 ED Notes 05/12 "Patient presents for evaluation of weakness" HP 05/12 "acute on chronic respiratory failure with hypoxia" HP 05/12 "bibasilar infiltrates:either PNA or CHF" PN 05/19 "Acidosis" RISK FACTORS ED Notes 05/12-69 years old ED Notes 05/12-DM ED Notes 05/12-CHF ED Notes 05/12-Smoker HP 05/12-COPD PN 05/19-PNA TREATMENTS: Collected 05/12-Chest Xray 05/12-Oxygen PN 05/14-Bipap PN 05/14-Sputum culture AUG 23-Maxipime 2gm IV AUG 23-Levaquin 750mg IV AUG 23-Vancomycin 1.5gram IV AUG 23-IVF (This form is maintained as a part of the permanent medical record) 2014 [employer]. All Rights Reserved [email or web address] [not provided] MTDD
--- NOTE | 2019-05-21 15:29 | DIS ---
DATE OF ADMISSION: 05/12/2019 DATE OF DISCHARGE: 05/20/2019 REASON FOR HOSPITALIZATION: Shortness of breath. SIGNIFICANT FINDINGS: The patient diagnosed with acute COPD exacerbation in addition to newly diagnosis of moderate aortic stenosis and recommended outpatient followup in the near future with Cardiology for further evaluation and treatment for aortic stenosis. PROCEDURES PERFORMED AND TREATMENTS RENDERED: The patient had maximum medical therapy from all specialists. The patient was admitted to [facility] on 05/12/2019 for shortness of breath and generalized weakness. The patient was seen and evaluated by Pulmonology/Critical Care physician - please see full consultation notes in addition to history and physical for full details and hospital course. The patient started on appropriate medical therapy by Internal Medicine physician and Pulmonology and they recommended the patient be evaluated by Cardiology. The patient was seen and evaluated by Cardiology on 05/17/2019 after aortic stenosis was identified on echocardiogram. Echocardiogram otherwise is benign with a preserved ejection fraction of 50% to 55% and no other significant valvular pathology. The patient does also have diagnosis of diastolic dysfunction, likely secondary to her COPD. The patient is oxygen-dependent at her baseline and Pulmonology was adjusting medications appropriately throughout her hospitalization. In the near future, the patient will need to have further evaluation for her moderate-severity aortic stenosis to be determined by her cabin cleaner in the outpatient setting. The patient acknowledges this and I discussed this with the patient's cabin cleaner, Dr. De La Cruz, who tells me that he will see both, her and her in the same day in the upcoming weeks. The patient understands disease pathology and states that she will be compliant and follow up with Cardiology, Pulmonology, and Internal Medicine physicians in the outpatient clinic. The patient recommended safe for discharge by all specialists on 05/20/2019. CONDITION ON DISCHARGE: Stable. SPECIFIC INSTRUCTIONS FOR THE PATIENT/FAMILY: 1. The patient is recommended to take all medications as directed, to be re-evaluated by primary care physician, Cardiology, and Pulmonology in the upcoming weeks at her appointments. 2. The patient recommended to follow up with primary care physician in the next 5 to 7 days - or return to acute care hospital immediately for re-evaluation. 3. The patient is recommended follow up with Pulmonology in the next 1 to 2 weeks - or return to acute care hospital immediately for re-evaluation. 4. The patient is recommended to follow up with Cardiology in the next 1 to 2 weeks - or return to acute care hospital immediately for re-evaluation. 5. The patient is recommended to return to acute care hospital immediately if signs or symptoms return, worsen, or any other new symptoms occur. DISCHARGE MEDICATIONS: Please see full discharge medication list for details. 1. Aspirin 81 mg one tablet p.o. daily. 2. Tylenol regular strength 650 mg one tablet p.o. q.4 hours p.r.n. pain or fever. 3. Lisinopril 20 mg one tablet p.o. b.i.d. 4. Cilostazol 100 mg one tablet p.o. at bedtime. 5. Glipizide extended release 2.5 mg one tablet p.o. daily. 6. Furosemide 40 mg one tablet p.o. daily. 7. Amlodipine 10 mg one tablet p.o. daily. 8. Prednisone tapering dose as directed: 10 mg tablets, 40 mg p.o. daily for 3 days, then 30 mg p.o. daily for 3 days, then 20 mg p.o. daily for 3 days, then 10 mg p.o. daily for 3 days, then stop. 9. Ipratropium bromide 2.5 mL nebulizer solution q.4 hours p.r.n. shortness of breath. 10. Lipitor 40 mg one tablet p.o. at bedtime. 11. ProAir HFA inhaler two puffs p.o. q.4 hours p.r.n. shortness of breath. 12. Albuterol sulfate nebulizer solution q.4 hours p.r.n. shortness of breath. Greater than 34 minutes spent coordinating care and discharge process for this patient. Job ID: [id number]
--- NOTE | 2019-05-26 21:10 | PQF ---
DAVID URENA NICLOLE BROWER [id number] CLINICAL DOCUMENTATION CLARIFICATION FORM: POST DISCHARGE Addendum to original discharge summary date: ____ Late entry note date: __ DATE: 05/26/19 ATTN: Nicolle Brower Please exercise your independent, professional judgment in responding to the clarification form. Clinical indicators are provided on the bottom of this form for your review Based on the clinical indicators on admit, can you determine if Acute on chronic CHF was present at the time of admission or developed after admission? Acute on chronic diastolic CHF Present on Admission (POA): [ XX ] Yes [ ] No [ ] Unable to determine Coding guidelines require hospitals to identify whether a diagnosis was present on admission (POA) or not. To accurately assign the appropriate POA indicator, this information must be clearly documented within the medical record. CLINICAL INDICATORS - SIGNS / SYMPTOMS / LABS HP 05/12 "CC:worsening SOB" HP 05/12 "bibasilar infiltrates:either PNA or CHF" PN 05/17 "Echo showed normal EF, diastolic dysfunction" PN 05/19 "Heart:murmur present" PN 05/19 "Extremities:LE edema" Labs BNP": 05/12=57.0 05/1630=347.7 RISK FACTORS: ED Notes 05/12-69 years old ED Notes 05/12-DM ED Notes 05/12-Smoker HP 05/12-COPD PN 05/19-PNA HP 05/12-Oxygen dependent HP 05/12-HTN HP 05/12-HLD PN 05/17-Aortic stenosis PN 05/20-CAD TREATMENT: Collected 05/12-Chest Xray HP 05/12-Oxygen PN 05/14-Bipap MAR 05/12-IVF Collected 05/12-Echo PN 05/19-Cardiology consult AUG 23-Lasix 40mg Oral AUG 24-Aspirin 81mg Oral AUG 24-Lisinopril 20mg Oral (This form is maintained as a part of the permanent medical record) 2014 [employer]. All Rights Reserved [email or web address] [not provided] MTDD
== END 2019-05-20 14:28 | disposition home health service (06) | DRG 291 ==
LOC: ERS 09:01 → 2NO 13:22 → IMCU/EMU 05-13 15:46 → T4-A 05-19 01:13
PROVIDERS: ADMIT Internal Medicine Nephrology; ATTEND Internal Medicine Nephrology
PROC: 5A09457 Assistance with Respiratory Ventilation, 24-96 Consecutive Hours, Continuous Positive Airway Pressure (ICD-10-PCS; principal; 2019-05-13)
DX: I11.0 Hypertensive heart disease with heart failure (principal); J18.9 Pneumonia, unspecified organism; J96.21 Acute and chronic respiratory failure with hypoxia; J96.22 Acute and chronic respiratory failure with hypercapnia; J44.1 Chronic obstructive pulmonary disease with (acute) exacerbation; J44.0 Chronic obstructive pulmonary disease with (acute) lower respiratory infection; I50.33 Acute on chronic diastolic (congestive) heart failure; E11.9 Type 2 diabetes mellitus without complications; E78.00 Pure hypercholesterolemia, unspecified; F17.210 Nicotine dependence, cigarettes, uncomplicated; E78.5 Hyperlipidemia, unspecified; Z79.51 Long term (current) use of inhaled steroids; I35.0 Nonrheumatic aortic (valve) stenosis; I25.10 Atherosclerotic heart disease of native coronary artery without angina pectoris; B96.89 Other specified bacterial agents as the cause of diseases classified elsewhere; Z88.6 Allergy status to analgesic agent; Z88.5 Allergy status to narcotic agent; Z88.0 Allergy status to penicillin; Z79.84 Long term (current) use of oral hypoglycemic drugs; Z79.899 Other long term (current) drug therapy; Z99.81 Dependence on supplemental oxygen; Z93.0 Tracheostomy status
CPT/HCPCS: 36415; 36416; 71045; 80048; 80053; 81003; 81015; 82550; 82805; 83880; 84145; 84484; 85025; 87070; 87205; 93005; 93306; 94640; 94660; 96365; 96366; 96367; 96368; 96375; J0692; J1120; J1650; J1815; J1956; J2920; J2930; J3370; J3475; J3490; J7512; J7611; J7620

== ENCOUNTER 2019-06-16 02:04 | Inpatient (IN) | payer MEDICARE ==
[2019-06-16] MEDS ORDERED: Acetaminophen 650 MG Suppository ONE (02:19)
[2019-06-16 02:40] LABS: #Lymphocytes 0.4 thou/uL (1.20-3.40); #Monocytes 0.6 thou/uL (0.11-0.59); #Neutrophils 12.6 thou/uL (1.40-6.50); %Basophils 0.3 % (0.0-1.0); %Eosinophils 0.3 % (0.0-10.0); %Lymphocytes 2.6 % (21.0-51.0); %Monocytes 4.3 % (0.0-10.0); %Neutrophils 92.5 % (42.0-75.0); Hemoglobin 12.3 g/dL (12.0-16.0); Mean Corpuscular HGB CONC 30.8 g/dL (32.0-36.0); Mean Corpuscular Hemoglobin 28.6 pg (27.0-31.0); Platelet Count 327 thou/uL (130-400); RBC Distribution Width 15.9 % (11.5-14.5); Red Blood Cell (RBC) Count 4.31 mill/uL (4.20-5.40); White Blood Cell (WBC) Count 13.6 thou/uL (4.8-10.8)
[2019-06-16] MEDS ORDERED: methylPREDNISolone Sod Succ/PF 125 MG/2 ML VIAL ONE (02:43)
[2019-06-16] MEDS ORDERED: Magnesium 2 GM/50 ML BAG (IN WATER) ONE (02:43)
[2019-06-16 02:47] LABS: Actual Bicarbonate (HCO3a) 50.2 mEq/L (22-28); Analyzer IN Cardio ER; Base Excess (BEa) 17.7 mEq/L (-2.0 to +3.0); Calcium, Ionized 1.16 mmol/L (1.12-1.30); Carboxyhemoglobin (COHb) 2.3 gm% (0.0-3.0); Hemoglobin (Hb) 13.1 g/dL (12.0-16.0); Potassium - ABG Lab 4.27 mmol/L (3.70-5.30); pH, Arterial 7.26 (7.35-7.45)
[2019-06-16 02:48] LABS: CO2 Tension 114.6 mmHg (35.0-45.0); Puncture Site LRA
[2019-06-16 03:00] LABS: ALT (SGPT) 8 U/L (8-55); AST (SGOT) 15 U/L (5-34); Albumin 3.7 g/dL (3.4-4.8); Alkaline Phosphatase 74 U/L (40-110); BUN (Urea Nitrogen) 9 mg/dL (9.8-20.1); Bilirubin, Total 0.2 mg/dL (0.2-1.2); Calc. Creatinine Clearance 0 mL/min (70-130); Calcium 9.2 mg/dL (7.8-10.44); Estimated GFR-MDRD 82; Globulin 3.6 g/dL (2.4-3.5); Glucose 243 mg/dL (80-115); Protein, Total 7.3 g/dL (6.0-8.3)
[2019-06-16 03:08] LABS: Chloride 91 mmol/L (98-107); Potassium 4.1 mmol/L (3.5-5.1); Sodium 141 mmol/L (136-145)
[2019-06-16 03:11] LABS: Anion Gap 16 mmol/L (10-20); Carbon Dioxide 38 mmol/L (23-31)
[2019-06-16] MEDS ORDERED: Succinylcholine Chloride 20 MG/ML 10 ml SYRINGE FS ONE (03:20)
[2019-06-16] MEDS ORDERED: Ketamine 50 MG/ML (10ML VIAL) ONE (03:21)
[2019-06-16 03:23] LABS: CKMB 1.5 ng/mL (0-6.6)
[2019-06-16] MEDS ORDERED: Fentanyl 100 MCG/2 ML VIAL ONE (03:38)
[2019-06-16] MEDS ORDERED: fentaNYL Citrate/PF 2,000 MCG in Sodium Chloride 0.9% 60 ML IV SCH (03:38)
[2019-06-16] MEDS ORDERED: Albuterol Sulfate 2.5 mg/3 ml Neb ONE (03:56)
--- NOTE | 2019-06-16 04:41 | PDOC.HHP ---
Hospitalist HPI - History of Present Illness Respiratory distress History of Present Illness: Patient is a 69 year old female with PMH COPD who was brought to ED by EMS for respiratory distress, sat was 89% with wronchi, placed on CPAP by EMS, in ED BIPAP attempted but failed and patient required intubation, she is intubated on my exam, discused with RT that end tidal CO2 improving since intubation and was auto peep but now improved with RT assistance, discussed case with Dr jacobs. Patient to be admitted to ICU under [facility] hospitalist service. Hospitalist ROS - Review of Systems Other: unable to obtain, intubated Hospitalist History - Past Medical History Other Medical History: T2DM COPD CHF hyperlipidemia - Past Surgical History Other Surgical History: trach which has been removed - Family History Family History: reports: no pertinent history - Social History Smoking Status: Current every day smoker - Exam General - other findings: intubated, sedated Eye: PERRL, anicteric sclera ENT: normocephalic atraumatic, no oropharyngeal lesions, moist mucosa ENT - other findings: et tube in place Neck: supple, no JVD Heart - other findings: regular, tachycardia Respiratory: CTAB, no wheezes, no rales, no ronchi Gastrointestinal: soft, non-tender, non-distended, normal bowel sounds, no palpable masses, no hepatomegaly, no splenomegaly, no bruit Extremities: no cyanosis, no clubbing, no edema Skin: normal turgor, no lesions, no rashes Neurological - other findings: unable to eval Musculoskeletal: normal tone, normal strength Psychiatric - other findings: unable to eval Hospitalist Results - Labs Result Diagrams: 06/16/19 02:36 06/16/19 02:36 Lab results: WBC 13.6 thou/uL (4.8-10.8) H 06/16/19 02:36 Hgb 12.3 g/dL (12.0-16.0) 06/16/19 02:36 Hct 40.1 % (36.0-47.0) 06/16/19 02:36 MCV 93.0 fL (78.0-98.0) 06/16/19 02:36 Plt Count 327 thou/uL (130-400) 06/16/19 02:36 Neutrophils % 92.5 % (42.0-75.0) H 06/16/19 02:36 ABG pH 7.26 (7.35-7.45) L 06/16/19 02:17 ABG pCO2 114.6 mmHg (35.0-45.0) H* 06/16/19 02:17 ABG pO2 76.0 mmHg (> 80.0) 06/16/19 02:17 Sodium 141 mmol/L (136-145) 06/16/19 02:36 Potassium 4.1 mmol/L (3.5-5.1) 06/16/19 02:36 Chloride 91 mmol/L (98-107) L 06/16/19 02:36 Carbon Dioxide 38 mmol/L (23-31) H 06/16/19 02:36 BUN 9 mg/dL (9.8-20.1) L 06/16/19 02:36 Creatinine 0.71 mg/dL (0.6-1.1) 06/16/19 02:36 Glucose 243 mg/dL (80-115) H 06/16/19 02:36 Lactic Acid 0.8 mmol/L (0.5-2.2) 06/16/19 02:36 Calcium 9.2 mg/dL (7.8-10.44) 06/16/19 02:36 Total Bilirubin 0.2 mg/dL (0.2-1.2) 06/16/19 02:36 AST 15 U/L (5-34) 06/16/19 02:36 ALT 8 U/L (8-55) 06/16/19 02:36 Alkaline Phosphatase 74 U/L (40-110) 06/16/19 02:36 CK-MB (CK-2) 1.5 ng/mL (0-6.6) 06/16/19 02:36 Troponin I 0.042 ng/mL (< 0.028) H 06/16/19 02:36 B-Natriuretic Peptide 255.8 pg/mL (0-100) H 06/16/19 02:36 Serum Total Protein 7.3 g/dL (6.0-8.3) 06/16/19 02:36 Albumin 3.7 g/dL (3.4-4.8) 06/16/19 02:36 labs, EKG, vitals reviewed ventilator settings reviewed with RT Hospitalist H&P A/P - Plan Plan: 69F with PMH T2DM, COPD, CHF, hyperlipidemia # acute hypoxic and hypercapneic respiratory failure - admit to ICU, continue vent with pulmonary assistance, continue antibiotics, steroids, conult pulmonary - CO2 greatly improved # sepsis - due to above # T2DM - SSI, DM order set # COPD w/ exacerbation - treatment as above # CHF - continue home meds once PO resumed # hyperlipidemia - continue home meds once PO resumed 40 minutes critical care time
[2019-06-16] MEDS ORDERED: Promethazine HCl 12.5 MG in Sodium Chloride 0.9% 50 ML IVPB PRN (04:46)
[2019-06-16] MEDS ORDERED: Ondansetron PF 4 MG/2 ML Vial IVP PRN (04:46)
[2019-06-16] MEDS ORDERED: Morphine 2 MG/ML SYRINGE SLOW IVP PRN ×2 (04:46→11:26)
[2019-06-16] MEDS ORDERED: cloNIDine 0.1 MG TAB PO PRN (04:46)
[2019-06-16] MEDS ORDERED: Acetaminophen 325 MG TAB PO PRN (04:47)
[2019-06-16] MEDS ORDERED: Bisacodyl 5 MG TAB PO PRN (04:47)
[2019-06-16] MEDS ORDERED: Senokot S 8.6-50 MG TAB PO PRN (04:47)
[2019-06-16] MEDS ORDERED: Dextrose 5% in Water 1,000 ML IV PRN (04:47)
[2019-06-16] MEDS ORDERED: Bisacodyl 10 MG SUPP PR PRN (04:47)
[2019-06-16] MEDS ORDERED: Dextrose 50% Abboject 50 ML SYRINGE SLOW IVP PRN (04:47)
[2019-06-16] MEDS ORDERED: Azithromycin 500 MG in Sodium Chloride 0.9% 250 ML 250 ML IVPB SCH (05:00)
[2019-06-16 05:27] LABS: Actual Bicarbonate (HCO3a) 38.4 mEq/L (22-28); Base Excess (BEa) 10.8 mEq/L (-2.0 to +3.0); Calcium, Ionized 1.15 mmol/L (1.12-1.30); Carboxyhemoglobin (COHb) 2.2 gm% (0.0-3.0); Hemoglobin (Hb) 11.5 g/dL (12.0-16.0); O2 Tension (PaO2) 67.8 mmHg (> 80.0); Potassium - ABG Lab 4.23 mmol/L (3.70-5.30); pH, Arterial 7.37 (7.35-7.45)
[2019-06-16 05:35] LABS: CO2 Tension 68.3 mmHg (35.0-45.0)
[2019-06-16 05:36] LABS: ALV-art Gradient 132.025 (0-20)
[2019-06-16] MEDS: cefTRIAXone\\ROCEPHIN 1 GM in Sodium Chloride 0.9% 100 ML IVPB SCH (05:59)
[2019-06-16] MEDS: HumaLOG 300 UNITS/3 ML VIAL SC PRN ×3 (06:11→17:44)
--- NOTE | 2019-06-16 08:01 | RAD ---
Chest AP view INDICATION: Intubation COMPARISON: Prior exam dated June 16, 2019 2:01 AM FINDINGS: Lungs:Chronic lung changes are stable Cardiac silhouette:Mild cardiomegaly is stable Pulmonary vasculature:Normal Pleural spaces:No pleural effusion or pneumothorax is demonstrated. Upper abdomen:No abnormality seen. Osseous structures: No acute osseous abnormality. Additional findings:The patient is not intubated with ET tube tip seen just beyond the level of thora cic inlet. Gastric catheter projects beyond the left hemidiaphragm and beyond the [id number]. IMPRESSION: Interval intubation with gastric catheter placement. Stable chronic lung changes and mild cardiomegaly.
[2019-06-16] MEDS: Azithromycin 500 MG in Sodium Chloride 0.9% 250 ML 250 ML IVPB SCH (08:19)
[2019-06-16] MEDS ORDERED: Dextrose 5 % And 0.9 % NaCl 1,000 ML IV SCH (08:30)
[2019-06-16] MEDS: Aspirin 81 mg Enteric Coated Tablet PO SCH ×2 (09:07→10:21)
[2019-06-16] MEDS: Polyethylene Glycol 3350 17 GM Packet PO SCH (09:07)
[2019-06-16] MEDS: Enoxaparin Sodium 40 MG/0.4 ML SYRINGE SC SCH (09:07)
[2019-06-16] MEDS: methylPREDNISolone Sod Succ 40 MG VIAL IVP SCH ×2 (09:07→17:44)
--- NOTE | 2019-06-16 09:24 | RAD ---
PORTABLE CHEST: HISTORY: Shortness of breath. COMPARISON: 05/12/2019 FINDINGS: Heart size appears slightly enlarged. There are atherosclerotic changes of the aorta. Chronic lung ch anges are present. IMPRESSION: Chronic appearing interstitial lung changes. Difficult to exclude some element of edema. The appearan ce is fairly similar to the previous 05/12/2019 study. POS: [facility]
[2019-06-16] MEDS ORDERED: Ventilator Sedation Protocol 1 EACH FS SCH (11:15)
[2019-06-16] MEDS ORDERED: Fentanyl BOLUS 250 ML IVPB PRN (11:26)
[2019-06-16] MEDS ORDERED: Lorazepam 2 MG/ML VIAL SLOW IVP PRN (11:26)
[2019-06-16] MEDS ORDERED: Propofol BOLUS 1,000 MG/100 ML VIAL IV PRN (11:26)
[2019-06-16] MEDS ORDERED: DISCONTINUE PREVIOUS NARCOTIC PAIN MEDICATIONS AND BENZODIAZEPINES FS SCH (11:26)
[2019-06-16] MEDS: Lactated Ringer's 1,000 ML IV SCH (11:42)
--- NOTE | 2019-06-16 11:45 | CON ---
DATE OF CONSULTATION: 06/16/2019 45 minutes critical care time. REASON FOR CONSULTATION: Acute respiratory failure. HISTORY OF PRESENT ILLNESS: The patient is a 69-year-old female, who was brought into the emergency room for COPD exacerbation. She was originally tried on BiPAP, but failed, and was subsequently intubated by ER personnel. She is currently intubated on mechanical ventilation. PAST MEDICAL HISTORY: 1. Diabetes mellitus, type 2. 2. COPD. 3. Heart failure. 4. Hyperlipidemia. PAST SURGICAL HISTORY: She has had a tracheostomy in the past. MEDICATIONS: Prior to admission, 1. Aspirin. 2. Prednisone. 3. Glipizide. 4. Zestril. 5. Atrovent. 6. Albuterol. 7. Lasix. 8. Cilostazol. 9. Lipitor. 10. Norvasc. 11. ProAir. 12. Tylenol. Current inpatient medications reviewed, see chart. SOCIAL HISTORY: Up to her last hospitalization, she was smoking 1/2 pack per day. I am not sure if she is doing anything currently. She wears oxygen at home. Does not use illicit drugs. Does not drink alcohol. FAMILY MEDICAL HISTORY: Unremarkable. ALLERGIES: ASPIRIN, PENICILLIN, AND CODEINE. REVIEW OF SYSTEMS: Cannot be obtained. She is currently on mechanical ventilation. PHYSICAL EXAMINATION: VITAL SIGNS: Heart rate 93, blood pressure 134/57, O2 saturation 95%, and respiratory rate 18. GENERAL: She is currently awake on mechanical ventilation and in no distress. She is on SIMV rate 8, tidal volume 430, PEEP 5, pressure support 10, and FiO2 40%. HEENT: Unremarkable. NECK: No adenopathy or JVD. LUNGS: Diffuse wheezing. CARDIOVASCULAR: S1 and S2, regular. ABDOMEN: Soft and nontender. EXTREMITIES: No edema. LABORATORY DATA: White blood cell count 13.6, hematocrit 40, and platelet count 327. PH 7.37, pCO2 of 68, pO2 of 67 on those mechanical ventilation settings. Sodium 141, potassium 4.1, chloride 91, CO2 of 38, BUN 9, creatinine 0.7, and glucose 243. BNP 255. DIAGNOSTIC DATA: Her chest x-ray shows no mass, effusion or infiltrate. Repeat chest x-ray showed a well-positioned endotracheal tube and orogastric tube. ASSESSMENT: 1. Chronic obstructive pulmonary disease exacerbation. 2. Acute on chronic hypercapnic respiratory failure, requiring mechanical ventilation. 3. Tobacco abuse. PLAN: The patient will be kept intubated and on steroids, nebulization treatments, and on mechanical ventilation. She has been placed on empiric antibiotics, although I am not for sure if that is necessary. Hopefully, she can be extubated in a day or 2. Job ID: [id number]
[2019-06-16] MEDS: fentaNYL Citrate/PF 2,000 MCG in Sodium Chloride 0.9% 60 ML IV SCH (18:28)
[2019-06-17] MEDS: HumaLOG 300 UNITS/3 ML VIAL SC PRN ×4 (00:32→18:23)
[2019-06-17] MEDS: Lactated Ringer's 1,000 ML IV SCH ×2 (00:49→14:39)
[2019-06-17] MEDS: methylPREDNISolone Sod Succ 40 MG VIAL IVP SCH ×3 (01:56→18:47)
[2019-06-17 04:48] LABS: Anion Gap 12 mmol/L (10-20); BUN (Urea Nitrogen) 18 mg/dL (9.8-20.1); Calc. Creatinine Clearance 101 mL/min (70-130); Calcium 9.3 mg/dL (7.8-10.44); Carbon Dioxide 33 mmol/L (23-31); Chloride 101 mmol/L (98-107); Estimated GFR-MDRD Greater than 90; Glucose 222 mg/dL (80-115); Potassium 3.8 mmol/L (3.5-5.1); Sodium 142 mmol/L (136-145)
[2019-06-17] MEDS: cefTRIAXone\\ROCEPHIN 1 GM in Sodium Chloride 0.9% 100 ML IVPB SCH (05:52)
[2019-06-17 06:19] LABS: Hemoglobin 11.3 g/dL (12.0-16.0); Mean Corpuscular HGB CONC 32.9 g/dL (32.0-36.0); Mean Corpuscular Hemoglobin 30.2 pg (27.0-31.0); Mean Corpuscular Volume 91.7 fL (78.0-98.0); Mean Platelet Volume 7.8 fL (7.4-10.4); Platelet Count 261 thou/uL (130-400); RBC Distribution Width 16.3 % (11.5-14.5); Red Blood Cell (RBC) Count 3.74 mill/uL (4.20-5.40); White Blood Cell (WBC) Count 11.4 thou/uL (4.8-10.8)
[2019-06-17 06:47] LABS: #Eosinphils 0.1 thou/uL (0.0-0.7); #Lymphocytes 0.7 thou/uL (1.20-3.40); #Monocytes 0.5 thou/uL (0.11-0.59); #Neutrophils 10.1 thou/uL (1.40-6.50); %Basophils 0.1 % (0.0-1.0); %Eosinophils 0.5 % (0.0-10.0); %Monocytes 4.7 % (0.0-10.0); %Neutrophils 88.7 % (42.0-75.0)
[2019-06-17 07:05] LABS: Actual Bicarbonate (HCO3a) 37.9 mEq/L (22-28); Base Excess (BEa) 11.1 mEq/L (-2.0 to +3.0); Calcium, Ionized 1.21 mmol/L (1.12-1.30); Carboxyhemoglobin (COHb) 1.3 gm% (0.0-3.0); Hemoglobin (Hb) 11.8 g/dL (12.0-16.0); O2 Tension (PaO2) 81.8 mmHg (> 80.0); Potassium - ABG Lab 3.51 mmol/L (3.70-5.30); pH, Arterial 7.41 (7.35-7.45)
[2019-06-17 07:06] LABS: Puncture Site LRA
[2019-06-17] MEDS ORDERED: Prevnar 13-Val Conj/PF 0.5 ML SYRINGE IM ONE (09:00)
--- NOTE | 2019-06-17 09:35 | RAD ---
CHEST ONE VIEW: INDICATIONS: History of pneumonia. COMPARISON: 06/16/2019 FINDINGS: There is prominence of the interstitial markings that is slightly more accentuated from the prior exa m, likely related to exam technique. There is mild cardiomegaly which is stable. The pulmonary vascul ature is felt to be within normal limits. No pleural effusion is demonstrated. No pneumothorax is yarely dent. The patient remains intubated with gastric catheter placement. IMPRESSION: 1. Stable mild cardiomegaly. 2. Slight accentuation of the interstitial markings of both lung greenberg that may reflect underlying c hanges of interstitial edema or interstitial pneumonia. No khushbu air space consolidation is evident. Continued radiographic followup is recommended. POS: OFF
--- NOTE | 2019-06-17 09:38 | PRG ---
DATE OF SERVICE: 06/17/2019 35 minutes critical time. SUBJECTIVE: The patient remains intubated on mechanical ventilation. She will wake up and follows commands. OBJECTIVE: VITAL SIGNS: Temperature 99.3, pulse 84, blood pressure 154/72, 24 hour intake 3115, output 1234. HEENT: Unremarkable. NECK: No adenopathy or JVD. LUNGS: She has diffuse end-expiratory wheezing. She has peak pressure around 44, plateau pressure around 25. LABORATORY DATA: White blood cell count 11.4, hematocrit 34.3, platelet count 261. PH of 7.41, pCO2 of 61, pO2 of 81, on SIMV rate 18, tidal volume 430, PEEP 5, pressure support 10, FiO2 of 40%. Sodium 142, potassium 3.8, chloride 101, CO2 of 33, BUN 18, creatinine 0.6, glucose 222. Chest x-ray shows no mass, effusion, or infiltrate. ASSESSMENT: Chronic obstructive pulmonary disease with exacerbation. PLAN: She was still having a prolonged exhalation time, so I have decreased respiratory rate, decreased her tidal volume, and increased her peak expiratory flow. She will continue on steroids and nebulization treatments. I do not think she can be extubated for another day or two. I told the nurse she can use propofol as needed for sedation as the patient does have some anxiety issues. Job ID: [id number]
[2019-06-17] MEDS: Enoxaparin Sodium 40 MG/0.4 ML SYRINGE SC SCH (09:56)
[2019-06-17] MEDS: Polyethylene Glycol 3350 17 GM Packet PO SCH (09:56)
[2019-06-17] MEDS: Azithromycin 500 MG in Sodium Chloride 0.9% 250 ML 250 ML IVPB SCH (09:57)
[2019-06-17] MEDS: Propofol 1,000 MG/100 ML VIAL IV PRN (12:22)
[2019-06-17] MEDS: fentaNYL Citrate/PF 2,000 MCG in Sodium Chloride 0.9% 60 ML IV SCH (13:30)
--- NOTE | 2019-06-17 15:37 | PDOC.HOSPP ---
- Subjective Subjective: Seen and examined. Patient intubated and maintaining O2 saturation's. Patient awake and alert. Nodding had appropriately questions. Patient known to me as I' ve taking care of her in the past roughly 30 days ago. Patient has end-stage COPD, home oxygen dependent, with history of tracheostomy from COPD in the past. - Objective Vital Signs & Weight: Vital Signs (12 hours) Temp Pulse Resp Pulse Ox 06/17/19 15:02 89 06/17/19 12:57 93 06/17/19 10:27 93 06/17/19 08:50 96 27 H 97 06/17/19 08:00 18 06/17/19 06:53 81 06/17/19 06:00 18 06/17/19 04:31 88 18 95 06/17/19 04:00 99.3 F 18 Weight Admit Weight 162 lb Weight 157 lb 13.616 oz Most Recent Monitor Data Heart Rate from ECG 77 NIBP 128/66 NIBP BP-Mean 86 Respiration from ECG 16 SpO2 96 I&O: 06/16/19 06/17/19 06/18/19 06:59 06:59 06:59 Intake Total 29.0 3115 Output Total 250 1234 Balance -221.0 1881 Result Diagrams: 06/17/19 03:49 06/17/19 03:49 Additional Labs: Accuchecks 06/17/19 06/17/19 06/16/19 06:08 00:29 17:44 POC Glucose 227 H 230 H 212 H Radiology Reviewed by me: Yes Hospitalist ROS - Review of Systems All other systems reviewed; all pertinent +/- noted in HPI/Subj - Medication Medications: Active Medications Generic Name Dose Route Start Last Admin Trade Name Freq PRN Reason Stop Dose Admin Albuterol/Ipratropium 3 ml 06/16/19 05:00 06/17/19 15:01 Duoneb NEB 3 ml [id number] AFSANEH Administration Enoxaparin Sodium 40 mg 06/16/19 09:00 06/17/19 09:56 Lovenox SC 40 mg 0900 AFSANEH Administration Ceftriaxone Sodium 1 gm/ 100 mls @ 200 mls/hr 06/16/19 06:00 06/17/19 05:52 Sodium Chloride IVPB 100 mls Q24HR AFSANEH Administration Azithromycin 500 mg/ Sodium 250 mls @ 250 mls/hr 06/16/19 08:00 06/17/19 09: 57 Chloride IVPB 250 mls 0800 AFSANEH Administration Lactated Ringer's 1,000 mls @ 75 mls/hr 06/16/19 11:15 06/17/19 14:39 Lactated Ringer's IV 1,000 mls .[id number] AFSANEH Administration Fentanyl Citrate 2,000 mcg/ 100 mls @ 0 mls/hr 06/16/19 11:26 06/17/19 13:30 Sodium Chloride IV 07/16/19 11:26 100 mls INF AFSANEH Administration Protocol Per Protocol Insulin Human Lispro 0 units 06/16/19 04:47 06/17/19 12:21 Humalog SC 3 unit .MILD SLIDING SCALE PRN Administration Mild Correctional Scale Lorazepam 2 mg 06/16/19 11:26 06/17/19 12:22 Ativan SLOW IVP 07/16/19 11:26 2 mg Q1H PRN Administration Breakthrough agitation Methylprednisolone Sodium Succinate 60 mg 06/16/19 10:00 06/17/19 09:59 Solu-Medrol IVP 60 mg 0200,1000,1800 AFSANEH Administration Pantoprazole Sodium 40 mg 06/16/19 09:00 06/17/19 09:56 Protonix PO Not Given DAILY AFSANEH Polyethylene Glycol 17 gm 06/16/19 09:00 06/17/19 09:56 Miralax PO 17 gm DAILY AFSANEH Administration Propofol 1,000 mg 06/16/19 11:26 06/17/19 12:22 Diprivan IV 07/16/19 11:26 1,000 mg INF PRN Administration TO ACHIEVE GOAL RASS Protocol - Exam General Appearance: NAD, awake alert Eye: anicteric sclera ENT: normocephalic atraumatic, moist mucosa Neck: supple, symmetric, no lymphadenopathy Heart: no murmur, no gallops, no rubs Respiratory: no tachypnea, rhonchi, wheezes Respiratory - other findings: Very poor air movement Gastrointestinal: soft, non-tender, non-distended, no guarding, no rigidity Extremities: no edema Skin: no lesions, no rashes Neurological: cranial nerve grossly intact, no focal deficits Musculoskeletal: generalized weakness Hosp A/P (1) Acute on chronic diastolic (congestive) heart failure Code(s): I50.33 - ACUTE ON CHRONIC DIASTOLIC (CONGESTIVE) HEART FAILURE Status : Acute (2) Acute on chronic respiratory acidosis Code(s): E87.2 - ACIDOSIS Status: Acute (3) Acute on chronic respiratory failure with hypercapnia Code(s): J96.22 - ACUTE AND CHRONIC RESPIRATORY FAILURE WITH HYPERCAPNIA Status: Acute (4) Aortic stenosis Code(s): I35.0 - NONRHEUMATIC AORTIC (VALVE) STENOSIS Status: Acute Qualifiers: Cardiac valve disease etiology: etiology unspecified Qualified Code(s): I35.0 - Nonrheumatic aortic (valve) stenosis (5) COPD exacerbation Code(s): J44.1 - CHRONIC OBSTRUCTIVE PULMONARY DISEASE W (ACUTE) EXACERBATION Status: Acute (6) Lung infiltrate Code(s): R91.8 - OTHER NONSPECIFIC ABNORMAL FINDING OF LUNG FIELD Status: Acute (7) Pneumonia Code(s): J18.9 - PNEUMONIA, UNSPECIFIED ORGANISM Status: Acute Qualifiers: Pneumonia type: due to unspecified organism Laterality: bilateral (8) DM type 2 (diabetes mellitus, type 2) Status: Chronic Qualifiers: Diabetes mellitus alf insulin use: without ad terminal makeup operator use (9) HTN (hypertension) Code(s): I10 - ESSENTIAL (PRIMARY) HYPERTENSION Status: Chronic Qualifiers: Hypertension type: essential hypertension Qualified Code(s): I10 - Essential (primary) hypertension (10) Physical deconditioning Code(s): R53.81 - OTHER MALAISE Status: Chronic (11) Tobacco abuse disorder Code(s): Z72.0 - TOBACCO USE Status: Chronic - Plan Plan: intensive care unit pulmonology/critical care consultation, recommendations appreciated vent cleaning when able patient's pulmonary status is tenuous, she has history of tracheostomy from end- stage COPD in the past patient continues to smoke broad-spectrum antibiotics IV steroids continue other home medications as able blood pressure control blood sugar control long and short acting insulin for glucose control disposition: prognosis guarded
[2019-06-17] MEDS ORDERED: Dextrose 50% Abboject 50 ML SYRINGE SLOW IVP PRN (15:46)
[2019-06-17] MEDS ORDERED: Pancrelipase DR 12000 1 CAP FS PRN (16:35)
[2019-06-17] MEDS ORDERED: Sodium Bicarbonate Tab 325 MG TAB PER TUBE PRN (16:35)
[2019-06-18] MEDS: HumaLOG 300 UNITS/3 ML VIAL SC PRN ×5 (00:43→23:58)
[2019-06-18] MEDS: Propofol 1,000 MG/100 ML VIAL IV PRN ×2 (00:53→22:14)
[2019-06-18] MEDS: methylPREDNISolone Sod Succ 40 MG VIAL IVP SCH ×3 (02:24→21:19)
[2019-06-18] MEDS: Lactated Ringer's 1,000 ML IV SCH (04:42)
[2019-06-18 04:56] LABS: #Lymphocytes 0.6 thou/uL (1.20-3.40); #Monocytes 0.5 thou/uL (0.11-0.59); #Neutrophils 9.2 thou/uL (1.40-6.50); %Basophils 0.3 % (0.0-1.0); %Eosinophils 0.1 % (0.0-10.0); %Lymphocytes 5.4 % (21.0-51.0); %Monocytes 4.7 % (0.0-10.0); %Neutrophils 89.6 % (42.0-75.0); Hemoglobin 11.5 g/dL (12.0-16.0); Mean Corpuscular HGB CONC 31.6 g/dL (32.0-36.0); Mean Corpuscular Hemoglobin 28.8 pg (27.0-31.0); Mean Corpuscular Volume 91.1 fL (78.0-98.0); Platelet Count 305 thou/uL (130-400); RBC Distribution Width 16.3 % (11.5-14.5); Red Blood Cell (RBC) Count 3.99 mill/uL (4.20-5.40); White Blood Cell (WBC) Count 10.3 thou/uL (4.8-10.8)
[2019-06-18 05:17] LABS: Anion Gap 8 mmol/L (10-20); BUN (Urea Nitrogen) 17 mg/dL (9.8-20.1); Calc. Creatinine Clearance 98 mL/min (70-130); Calcium 9.2 mg/dL (7.8-10.44); Carbon Dioxide 36 mmol/L (23-31); Chloride 102 mmol/L (98-107); Estimated GFR-MDRD Greater than 90; Glucose 249 mg/dL (80-115); Potassium 3.9 mmol/L (3.5-5.1); Sodium 142 mmol/L (136-145)
[2019-06-18] MEDS: cefTRIAXone\\ROCEPHIN 1 GM in Sodium Chloride 0.9% 100 ML IVPB SCH (05:51)
[2019-06-18 07:08] LABS: Actual Bicarbonate (HCO3a) 32.2 mEq/L (22-28); Base Excess (BEa) 5.9 mEq/L (-2.0 to +3.0); CO2 Tension 54.6 mmHg (35.0-45.0); Calcium, Ionized 1.24 mmol/L (1.12-1.30); Hemoglobin (Hb) 12.1 g/dL (12.0-16.0); O2 Tension (PaO2) 92.9 mmHg (> 80.0); Potassium - ABG Lab 3.81 mmol/L (3.70-5.30); pH, Arterial 7.39 (7.35-7.45)
[2019-06-18 07:10] LABS: Puncture Site LRA
[2019-06-18] MEDS: fentaNYL Citrate/PF 2,000 MCG in Sodium Chloride 0.9% 60 ML IV SCH (08:27)
[2019-06-18] MEDS: Azithromycin 500 MG in Sodium Chloride 0.9% 250 ML 250 ML IVPB SCH (08:29)
[2019-06-18] MEDS: Enoxaparin Sodium 40 MG/0.4 ML SYRINGE SC SCH (09:46)
[2019-06-18] MEDS: Polyethylene Glycol 3350 17 GM Packet PO SCH (09:47)
[2019-06-18] MEDS ORDERED: Sodium Chloride 0.9% (PF) 10 ML VIAL FS PRN (10:02)
--- NOTE | 2019-06-18 11:04 | RAD ---
PORTABLE CHEST ONE VIEW: 06/18/2019 5:09 a.m. HISTORY: Respiratory failure. Pneumonia. COMPARISON: Exam from the previous day. FINDINGS: Endotracheal and nasogastric tubes remain in place. The heart size is mildly enlarged but stable. The re is pulmonary vascular congestion. No lobar consolidation, pneumothoraces or large effusions are se en. POS: [facility]
[2019-06-18] MEDS ORDERED: Furosemide 40 MG/4 ML VIAL SLOW IVP SCH (14:45)
--- NOTE | 2019-06-18 14:55 | PDOC.HOSPP ---
- Subjective Subjective: Seen and examined. Patient clinically improving on maximal medical therapy. Awake and alert on ventilator. Shakes her head no when I asked her if she is in pain. Shakes her head yes if I asked her if she feels like her breathing is improving. Patient is wheezing less. Discussed case with RN. - Objective Vital Signs & Weight: Vital Signs (12 hours) Temp Pulse Pulse Pulse Resp BP BP 06/18/19 14:51 70 06/18/19 13:08 86 06/18/19 11:01 82 06/18/19 10:00 16 06/18/19 08:45 79 16 06/18/19 08:44 86 83 163/81 H 167/74 H 06/18/19 08:00 99.2 F 18 06/18/19 06:59 74 06/18/19 06:00 16 06/18/19 04:00 99.4 F 16 Pulse Ox Pulse Ox Pulse Ox 06/18/19 14:51 06/18/19 13:08 06/18/19 11:01 06/18/19 10:00 06/18/19 08:45 97 06/18/19 08:44 96 97 06/18/19 08:00 96 06/18/19 06:59 06/18/19 06:00 06/18/19 04:00 Weight Admit Weight 162 lb Weight 161 lb 6.054 oz Most Recent Monitor Data Heart Rate from ECG 78 NIBP 152/69 NIBP BP-Mean 96 Respiration from ECG 16 SpO2 95 I&O: 06/17/19 06/18/19 06/19/19 06:59 06:59 06:59 Intake Total 3115 3568.2 205.7 Output Total 1234 2220 375 Balance 1881 1348.2 -169.3 Result Diagrams: 06/18/19 04:10 06/18/19 04:10 Additional Labs: Accuchecks 06/18/19 06/18/19 06/18/19 12:45 06:04 00:44 POC Glucose 237 H 233 H 265 H 06/17/19 06/17/19 18:21 12:20 POC Glucose 247 H 227 H Radiology Reviewed by me: Yes Hospitalist ROS - Review of Systems ROS unobtainable: due to endotracheal tube - Medication Medications: Active Medications Generic Name Dose Route Start Last Admin Trade Name Freq PRN Reason Stop Dose Admin Albuterol/Ipratropium 3 ml 06/16/19 04:45 06/18/19 14:53 Duoneb EZPAP 3 ml [id number] PRN Administration SOB &/or Wheezing Enoxaparin Sodium 40 mg 06/16/19 09:00 06/18/19 09:46 Lovenox SC 40 mg 0900 AFSANEH Administration Ceftriaxone Sodium 1 gm/ 100 mls @ 200 mls/hr 06/16/19 06:00 06/18/19 05:51 Sodium Chloride IVPB 100 mls Q24HR AFSANEH Administration Azithromycin 500 mg/ Sodium 250 mls @ 250 mls/hr 06/16/19 08:00 06/18/19 08: 29 Chloride IVPB 250 mls 0800 AFSANEH Administration Fentanyl Citrate 2,000 mcg/ 100 mls @ 0 mls/hr 06/16/19 11:26 06/18/19 08:27 Sodium Chloride IV 07/16/19 11:26 100 mls INF AFSANEH Administration Protocol Per Protocol Insulin Human Lispro 0 units 06/17/19 15:46 06/18/19 12:46 Humalog SC 4 unit .MODERATE SLIDING SC PRN Administration Moderate Correctional Scale Lorazepam 2 mg 06/16/19 11:26 06/17/19 12:22 Ativan SLOW IVP 07/16/19 11:26 2 mg Q1H PRN Administration Breakthrough agitation Polyethylene Glycol 17 gm 06/16/19 09:00 06/18/19 09:47 Miralax PO 17 gm DAILY AFSANEH Administration Propofol 1,000 mg 06/16/19 11:26 06/18/19 00:53 Diprivan IV 07/16/19 11:26 1,000 mg INF PRN Administration TO ACHIEVE GOAL RASS Protocol - Exam General Appearance: NAD Eye: PERRL, anicteric sclera ENT: normocephalic atraumatic, moist mucosa Neck: supple, symmetric, no lymphadenopathy Heart: no murmur, no gallops, no rubs Respiratory: no rales, no tachypnea, rhonchi, wheezes Respiratory - other findings: poor air movement, remains clamped down Gastrointestinal: soft, non-tender, no guarding, no rigidity Extremities: 1+ LE edema Skin: no lesions, no rashes Neurological: cranial nerve grossly intact, no focal deficits Musculoskeletal: generalized weakness Hosp A/P (1) Acute on chronic diastolic (congestive) heart failure Code(s): I50.33 - ACUTE ON CHRONIC DIASTOLIC (CONGESTIVE) HEART FAILURE Status : Acute (2) Acute on chronic respiratory acidosis Code(s): E87.2 - ACIDOSIS Status: Acute (3) Acute on chronic respiratory failure with hypercapnia Code(s): J96.22 - ACUTE AND CHRONIC RESPIRATORY FAILURE WITH HYPERCAPNIA Status: Acute (4) Aortic stenosis Code(s): I35.0 - NONRHEUMATIC AORTIC (VALVE) STENOSIS Status: Acute Qualifiers: Cardiac valve disease etiology: etiology unspecified Qualified Code(s): I35.0 - Nonrheumatic aortic (valve) stenosis (5) COPD exacerbation Code(s): J44.1 - CHRONIC OBSTRUCTIVE PULMONARY DISEASE W (ACUTE) EXACERBATION Status: Acute (6) Lung infiltrate Code(s): R91.8 - OTHER NONSPECIFIC ABNORMAL FINDING OF LUNG FIELD Status: Acute (7) Pneumonia Code(s): J18.9 - PNEUMONIA, UNSPECIFIED ORGANISM Status: Acute Qualifiers: Pneumonia type: due to unspecified organism Laterality: bilateral (8) DM type 2 (diabetes mellitus, type 2) Status: Chronic Qualifiers: Diabetes mellitus termite control servicer insulin use: without termite control servicer use (9) HTN (hypertension) Code(s): I10 - ESSENTIAL (PRIMARY) HYPERTENSION Status: Chronic Qualifiers: Hypertension type: essential hypertension Qualified Code(s): I10 - Essential (primary) hypertension (10) Physical deconditioning Code(s): R53.81 - OTHER MALAISE Status: Chronic (11) Tobacco abuse disorder Code(s): Z72.0 - TOBACCO USE Status: Chronic - Plan Plan: intensive care unit pulmonology/critical care consultation, recommendations appreciated vent cleaning when able patient's pulmonary status is tenuous, she has history of tracheostomy from end- stage COPD in the past patient continues to smoke broad-spectrum antibiotics IV steroids continue other home medications as able blood pressure control blood sugar control GI PPX long and short acting insulin for glucose control disposition: prognosis guarded
--- NOTE | 2019-06-18 15:19 | PRG ---
DATE OF SERVICE: 06/18/2019 SERVICE: Pulmonary Medicine. INTERVAL HISTORY: The patient is doing fine from respiratory standpoint. She still has a profound expiratory phase. Denies any current chest discomfort, fevers, chills, nausea, or vomiting. No overnight events otherwise. PHYSICAL EXAMINATION: VITAL SIGNS: Afebrile, pulse 92, blood pressure 156/65, respirations 28, saturation 94%, currently on 31% FiO2 and a PEEP of 5. GENERAL: The patient is awake and alert, in no apparent distress. LUNGS: Reduced air entry with a prolonged expiratory phase. There is wheezing and crackles present. HEART: Normal rate, regular. ABDOMEN: Soft, nontender, nondistended. Bowel sounds are positive. MUSCULOSKELETAL: No cyanosis or clubbing. There is diffuse pitting throughout. There is roughly 1 to 2+. NEUROLOGIC: Grossly nonfocal. LABORATORY DATA: WBC 10.3, hemoglobin 11.5, platelets 305,000. PH 7.39, pCO2 of 34, PO2 of 92. This corresponds to saturation 97% when she was on 40% FiO2. Basic metabolic profile is completely unremarkable except for a bicarb of 36, which is likely close to baseline for her. One out of two blood cultures is growing coag-negative staph. IMAGING: Chest x-ray demonstrates an endotracheal tube roughly 4 cm above the level of benjamin. There is an enteric catheter coursing below the level of the diaphragm. Lungs are hyperexpanded. The left diaphragm is actually high compared to the right. Pulmonary vascular congestion is noted. Interstitial fullness is also present. ASSESSMENT: 1. Acute on chronic hypoxic and hypercapnic respiratory failure. 2. Chronic obstructive pulmonary disease with acute exacerbation. 3. Acute on chronic diastolic heart failure. DISCUSSION AND PLAN: The patient has a very prolonged expiratory phase. She is also a little volume up. As such, we will minimize her IV fluids and give her a dose of Lasix today. We will minimize sedation and encourage her to work with physical therapy. Pulmonary/Critical Care will continue to follow along. Multiple adjustments have been made to the ventilator to turn a touch more work of breathing over to the patient. CRITICAL CARE TIME: 30 minutes. Job ID: [id number]
[2019-06-19] MEDS: fentaNYL Citrate/PF 2,000 MCG in Sodium Chloride 0.9% 60 ML IV SCH (04:47)
[2019-06-19 04:55] LABS: #Lymphocytes 0.8 thou/uL (1.20-3.40); #Monocytes 0.5 thou/uL (0.11-0.59); #Neutrophils 8.7 thou/uL (1.40-6.50); %Basophils 0.1 % (0.0-1.0); %Eosinophils 0.3 % (0.0-10.0); %Lymphocytes 8.3 % (21.0-51.0); %Monocytes 5.4 % (0.0-10.0); Hemoglobin 12.8 g/dL (12.0-16.0); Mean Corpuscular Hemoglobin 30.6 pg (27.0-31.0); Mean Corpuscular Volume 92.8 fL (78.0-98.0); Mean Platelet Volume 7.6 fL (7.4-10.4); Platelet Count 298 thou/uL (130-400); Red Blood Cell (RBC) Count 4.18 mill/uL (4.20-5.40); White Blood Cell (WBC) Count 10.1 thou/uL (4.8-10.8)
[2019-06-19 05:07] LABS: BUN (Urea Nitrogen) 19 mg/dL (9.8-20.1); Calc. Creatinine Clearance 100 mL/min (70-130); Calcium 9.5 mg/dL (7.8-10.44); Estimated GFR-MDRD Greater than 90; Glucose 244 mg/dL (80-115)
[2019-06-19 05:17] LABS: Anion Gap 12 mmol/L (10-20); Carbon Dioxide 36 mmol/L (23-31); Chloride 99 mmol/L (98-107); Sodium 143 mmol/L (136-145)
[2019-06-19] MEDS ORDERED: Furosemide 40 MG/4 ML VIAL SLOW IVP SCH ×2 (06:00→15:00)
[2019-06-19] MEDS: cefTRIAXone\\ROCEPHIN 1 GM in Sodium Chloride 0.9% 100 ML IVPB SCH (06:21)
[2019-06-19] MEDS: HumaLOG 300 UNITS/3 ML VIAL SC PRN ×3 (06:23→18:12)
[2019-06-19] MEDS: Azithromycin 500 MG in Sodium Chloride 0.9% 250 ML 250 ML IVPB SCH (08:12)
[2019-06-19] MEDS: Enoxaparin Sodium 40 MG/0.4 ML SYRINGE SC SCH (08:12)
[2019-06-19] MEDS: Polyethylene Glycol 3350 17 GM Packet PO SCH (08:13)
[2019-06-19] MEDS: Pantoprazole 40 MG VIAL IVP SCH (08:13)
[2019-06-19] MEDS: methylPREDNISolone Sod Succ 40 MG VIAL IVP SCH ×2 (08:13→20:23)
--- NOTE | 2019-06-19 13:22 | PDOC.HOSPP ---
- Subjective Subjective: Seen and examined. Remains on the ventilator. Eyes open nodding had appropriately to questions. Patient remains diffusely wheezy and rhonchorous and all lung greenberg. - Objective Vital Signs & Weight: Vital Signs (12 hours) Temp Pulse Resp BP Pulse Ox 06/19/19 12:00 98.8 F 13 06/19/19 10:12 87 06/19/19 10:00 13 06/19/19 08:00 98.8 F 13 92 L 06/19/19 07:19 78 06/19/19 06:00 13 06/19/19 04:00 98.3 F 15 06/19/19 03:05 72 160/70 H 06/19/19 03:04 73 15 92 L 06/19/19 02:00 13 Weight Admit Weight 162 lb Weight 155 lb 10.342 oz Most Recent Monitor Data Heart Rate from ECG 65 NIBP 124/57 NIBP BP-Mean 79 Respiration from ECG 13 SpO2 93 I&O: 06/18/19 06/19/19 06/20/19 06:59 06:59 06:59 Intake Total 3568.2 2464.9 312.4 Output Total 2220 4703 860 Balance 1348.2 -2238.1 -547.6 Result Diagrams: 06/19/19 03:55 06/19/19 03:55 Additional Labs: Accuchecks 06/19/19 06/19/19 06/18/19 10:56 06:18 23:59 POC Glucose 158 H 239 H 193 H 06/18/19 18:56 POC Glucose 238 H Radiology Reviewed by me: Yes Hospitalist ROS - Review of Systems ROS unobtainable: due to endotracheal tube - Medication Medications: Active Medications Generic Name Dose Route Start Last Admin Trade Name Freq PRN Reason Stop Dose Admin Albuterol/Ipratropium 3 ml 06/16/19 04:45 06/18/19 14:53 Duoneb EZPAP 3 ml [id number] PRN Administration SOB &/or Wheezing Albuterol/Ipratropium 3 ml 06/18/19 18:30 06/19/19 10:11 Duoneb NEB 3 ml [id number] AFSANEH Administration Enoxaparin Sodium 40 mg 06/16/19 09:00 06/19/19 08:12 Lovenox SC 40 mg 0900 AFSANEH Administration Furosemide 40 mg 06/19/19 06:00 06/19/19 06:23 Lasix SLOW IVP 40 mg 0600 AFSANEH Administration Ceftriaxone Sodium 1 gm/ 100 mls @ 200 mls/hr 06/16/19 06:00 06/19/19 06:21 Sodium Chloride IVPB 100 mls Q24HR AFSANEH Administration Azithromycin 500 mg/ Sodium 250 mls @ 250 mls/hr 06/16/19 08:00 06/19/19 08: 12 Chloride IVPB 250 mls 0800 AFSANEH Administration Fentanyl Citrate 2,000 mcg/ 100 mls @ 0 mls/hr 06/16/19 11:26 06/19/19 04:47 Sodium Chloride IV 07/16/19 11:26 100 mls INF AFSANEH Administration Protocol Per Protocol Insulin Human Lispro 0 units 06/17/19 15:46 06/19/19 12:16 Humalog SC 2 unit .MODERATE SLIDING SC PRN Administration Moderate Correctional Scale Lorazepam 2 mg 06/16/19 11:26 06/17/19 12:22 Ativan SLOW IVP 07/16/19 11:26 2 mg Q1H PRN Administration Breakthrough agitation Methylprednisolone Sodium Succinate 40 mg 06/18/19 21:00 06/19/19 08:13 Solu-Medrol IVP 40 mg BID AFSANEH Administration Pantoprazole Sodium 40 mg 06/19/19 09:00 06/19/19 08:13 Protonix IVP 40 mg DAILY AFSANEH Administration Polyethylene Glycol 17 gm 06/16/19 09:00 06/19/19 08:13 Miralax PO 17 gm DAILY AFSANEH Administration Propofol 1,000 mg 06/16/19 11:26 06/18/19 22:14 Diprivan IV 07/16/19 11:26 1,000 mg INF PRN Administration TO ACHIEVE GOAL RASS Protocol - Exam General Appearance: NAD, awake alert Eye: PERRL ENT: normocephalic atraumatic, no oropharyngeal lesions, moist mucosa Neck: supple, symmetric Heart: no murmur, no gallops, no rubs Respiratory: no rales, no tachypnea, rhonchi, wheezes (Severe) Gastrointestinal: soft, non-tender, no guarding, no rigidity Gastrointestinal - other findings: : Fox in place Extremities: 1+ LE edema Skin: no lesions, no rashes Neurological: cranial nerve grossly intact, no focal deficits Musculoskeletal: generalized weakness Hosp A/P (1) Acute on chronic diastolic (congestive) heart failure Code(s): I50.33 - ACUTE ON CHRONIC DIASTOLIC (CONGESTIVE) HEART FAILURE Status : Acute (2) Acute on chronic respiratory acidosis Code(s): E87.2 - ACIDOSIS Status: Acute (3) Acute on chronic respiratory failure with hypercapnia Code(s): J96.22 - ACUTE AND CHRONIC RESPIRATORY FAILURE WITH HYPERCAPNIA Status: Acute (4) Aortic stenosis Code(s): I35.0 - NONRHEUMATIC AORTIC (VALVE) STENOSIS Status: Acute Qualifiers: Cardiac valve disease etiology: etiology unspecified Qualified Code(s): I35.0 - Nonrheumatic aortic (valve) stenosis (5) COPD exacerbation Code(s): J44.1 - CHRONIC OBSTRUCTIVE PULMONARY DISEASE W (ACUTE) EXACERBATION Status: Acute (6) Lung infiltrate Code(s): R91.8 - OTHER NONSPECIFIC ABNORMAL FINDING OF LUNG FIELD Status: Acute (7) Pneumonia Code(s): J18.9 - PNEUMONIA, UNSPECIFIED ORGANISM Status: Acute Qualifiers: Pneumonia type: due to unspecified organism Laterality: bilateral (8) DM type 2 (diabetes mellitus, type 2) Status: Chronic Qualifiers: Diabetes mellitus termination clerk insulin use: without longterm use (9) HTN (hypertension) Code(s): I10 - ESSENTIAL (PRIMARY) HYPERTENSION Status: Chronic Qualifiers: Hypertension type: essential hypertension Qualified Code(s): I10 - Essential (primary) hypertension (10) Physical deconditioning Code(s): R53.81 - OTHER MALAISE Status: Chronic (11) Tobacco abuse disorder Code(s): Z72.0 - TOBACCO USE Status: Chronic - Plan Plan: intensive care unit pulmonology/critical care consultation, recommendations appreciated vent cleaning when able patient's pulmonary status is slowly improving, 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
--- NOTE | 2019-06-19 15:16 | PRG ---
DATE OF SERVICE: 06/19/2019 SERVICE: Pulmonary Medicine. INTERVAL HISTORY: The patient is doing fine from respiratory standpoint. She would like to be extubated. That being said, her pressure support has been quite elevated. She denies any fevers or chills. There were no significant overnight events. She got a dose of Lasix yesterday and this morning. She tolerated both the doses quite well. Otherwise, there has been no interval change to her condition. There were no overnight events. PHYSICAL EXAMINATION: VITAL SIGNS: Afebrile, pulse 70, blood pressure 131/54, respirations 14, and saturation 92% on room air. GENERAL: The patient is intubated. She is under the influence of a little bit of sedation. HEENT: Normocephalic and atraumatic. Sclerae are white. Conjunctivae are pink. Oral mucosa is moist without lesions. LUNGS: Decent air entry. There is extraordinarily prolonged expiratory phase. Polyphonic wheezing is present. She is moving much more air today than she was previously. HEART: Normal rate. Regular. ABDOMEN: Soft, nontender, and nondistended. Bowel sounds are positive. MUSCULOSKELETAL: No cyanosis or clubbing. There is trace pitting in the bilateral lower extremities at this point. There is 1+ pitting at the sacrum. : Fox catheter in place. NEUROLOGIC: Grossly nonfocal. LABORATORY DATA: WBC 10.1, hemoglobin 12.8, platelets 298,000. PH 7.39, pCO2 of 55, PO2 of 93. Basic metabolic profile is completely unremarkable. Her bicarb is stable at 36, potassium 4.0 and gently downtrending. Creatinine 0.62. Coag-negative Staph is growing in 1 out of 2 blood cultures. ASSESSMENT: 1. Acute on chronic hypoxic and hypercapnic respiratory failure. 2. Chronic obstructive pulmonary disease with acute exacerbation. 3. Acute on chronic diastolic heart failure, widely responsive to Lasix. DISCUSSION AND PLAN: The patient is doing much better from a respiratory standpoint, but I am actually on the fences as to whether or not she can be extubated. We will give her a long 30-minute spontaneous breathing trial at 7/5. If she meets criteria, extubation will be performed. Sedation will be minimized. Pulmonary/Critical Care will follow. CRITICAL CARE TIME: 30 minutes. Job ID: [id number]
[2019-06-19] MEDS ORDERED: Calcium Carbonate 500 MG ChewTAB PO PRN (20:37)
--- NOTE | 2019-06-19 20:38 | PDOC.EVN ---
Event Note - Event Note Event Note: contacted by nurse - pt c/o dee, was extubated today, is on a PPI. Will add prn tums.
[2019-06-20] MEDS: HumaLOG 300 UNITS/3 ML VIAL SC PRN ×4 (00:44→17:56)
[2019-06-20] MEDS: hydrALAZINE 20 MG/ML VIAL SLOW IVP PRN (00:45)
[2019-06-20 04:31] LABS: #Lymphocytes 1.1 thou/uL (1.20-3.40); #Monocytes 0.7 thou/uL (0.11-0.59); #Neutrophils 8.9 thou/uL (1.40-6.50); %Basophils 0.4 % (0.0-1.0); %Eosinophils 0.2 % (0.0-10.0); %Lymphocytes 10.1 % (21.0-51.0); %Monocytes 6.1 % (0.0-10.0); %Neutrophils 83.2 % (42.0-75.0); Hemoglobin 13.4 g/dL (12.0-16.0); Mean Corpuscular Hemoglobin 28.5 pg (27.0-31.0); Mean Corpuscular Volume 91.9 fL (78.0-98.0); Mean Platelet Volume 8.3 fL (7.4-10.4); Platelet Count 303 thou/uL (130-400); RBC Distribution Width 16.1 % (11.5-14.5); Red Blood Cell (RBC) Count 4.72 mill/uL (4.20-5.40); White Blood Cell (WBC) Count 10.7 thou/uL (4.8-10.8)
[2019-06-20 04:46] LABS: BUN (Urea Nitrogen) 20 mg/dL (9.8-20.1); Calc. Creatinine Clearance 95 mL/min (70-130); Calcium 9.6 mg/dL (7.8-10.44); Estimated GFR-MDRD Greater than 90; Glucose 213 mg/dL (80-115)
[2019-06-20 04:55] LABS: Anion Gap 17 mmol/L (10-20); Carbon Dioxide 36 mmol/L (23-31); Chloride 95 mmol/L (98-107); Potassium 4.2 mmol/L (3.5-5.1); Sodium 144 mmol/L (136-145)
[2019-06-20] MEDS: cefTRIAXone\\ROCEPHIN 1 GM in Sodium Chloride 0.9% 100 ML IVPB SCH (05:34)
[2019-06-20] MEDS: Pantoprazole 40 MG VIAL IVP SCH (09:56)
[2019-06-20] MEDS: Enoxaparin Sodium 40 MG/0.4 ML SYRINGE SC SCH (09:57)
[2019-06-20] MEDS: Azithromycin 500 MG in Sodium Chloride 0.9% 250 ML 250 ML IVPB SCH (09:57)
[2019-06-20] MEDS: Polyethylene Glycol 3350 17 GM Packet PO SCH (09:58)
[2019-06-20] MEDS: methylPREDNISolone Sod Succ 40 MG VIAL IVP SCH ×2 (09:59→20:21)
--- NOTE | 2019-06-20 15:59 | PDOC.HOSPP ---
- Subjective Subjective: Seen and examined. Clinically improving. Tolerated extubation. Saturating well on low-flow nasal cannula. Patient sitting up at the edge of the bed with physical therapy and she is progressing well. Will remove Fox catheter. Patient needs to mobilize. Still very wheezy. - Objective Vital Signs & Weight: Vital Signs (12 hours) Temp Pulse Pulse Pulse Resp BP BP 06/20/19 14:09 94 28 H 06/20/19 12:00 98.4 F 06/20/19 10:15 84 26 H 06/20/19 09:39 92 82 121/92 H 156/69 H 06/20/19 09:15 94 92 121/92 H 162/71 H 06/20/19 08:00 98.4 F 06/20/19 07:05 98 23 H 06/20/19 04:00 98.6 F Pulse Ox Pulse Ox Pulse Ox 06/20/19 14:09 95 06/20/19 12:00 06/20/19 10:15 94 L 06/20/19 09:39 92 L 93 L 06/20/19 09:15 93 L 06/20/19 08:00 92 L 06/20/19 07:05 95 06/20/19 04:00 Weight Admit Weight 162 lb Weight 150 lb 2.157 oz Most Recent Monitor Data Heart Rate from ECG 82 NIBP 149/65 NIBP BP-Mean 93 Respiration from ECG 21 SpO2 93 I&O: 06/19/19 06/20/19 06/21/19 06:59 06:59 06:59 Intake Total 2464.9 960.4 420 Output Total 4703 2975 970 [facility] -2238.1 -2014.6 -550 Result Diagrams: 06/20/19 04:10 06/20/19 04:10 Additional Labs: Accuchecks 06/20/19 06/20/19 06/19/19 14:41 00:26 18:11 POC Glucose 246 H 198 H 203 H Radiology Reviewed by me: Yes Hospitalist ROS - Review of Systems All other systems reviewed; all pertinent +/- noted in HPI/Subj - Medication Medications: Active Medications Generic Name Dose Route Start Last Admin Trade Name Freq PRN Reason Stop Dose Admin Acetaminophen 650 mg 06/16/19 04:47 06/20/19 04:16 Tylenol PO 650 mg Q4H PRN Administration Headache/Fever/Mild Pain (1-3) Albuterol/Ipratropium 3 ml 06/16/19 04:45 06/18/19 14:53 Duoneb EZPAP 3 ml [id number] PRN Administration SOB &/or Wheezing Albuterol/Ipratropium 3 ml 06/18/19 18:30 06/20/19 14:09 Duoneb NEB 3 ml [id number] AFSANEH Administration Enoxaparin Sodium 40 mg 06/16/19 09:00 06/20/19 09:57 Lovenox SC 40 mg 0900 AFSANEH Administration Hydralazine HCl 10 mg 06/16/19 04:46 06/20/19 00:45 Apresoline SLOW IVP 10 mg Q6H PRN Administration SBP GREATER THAN 160 Ceftriaxone Sodium 1 gm/ 100 mls @ 200 mls/hr 06/16/19 06:00 06/20/19 05:34 Sodium Chloride IVPB 100 mls Q24HR AFSANEH Administration Azithromycin 500 mg/ Sodium 250 mls @ 250 mls/hr 06/16/19 08:00 06/20/19 09: 57 Chloride IVPB 250 mls 0800 AFSANEH Administration Fentanyl Citrate 2,000 mcg/ 100 mls @ 0 mls/hr 06/16/19 11:26 06/19/19 04:47 Sodium Chloride IV 07/16/19 11:26 100 mls INF AFSANEH Administration Protocol Per Protocol Insulin Human Lispro 0 units 06/17/19 15:46 06/20/19 15:14 Humalog SC 4 unit .MODERATE SLIDING SC PRN Administration Moderate Correctional Scale Lorazepam 2 mg 06/16/19 11:26 06/17/19 12:22 Ativan SLOW IVP 07/16/19 11:26 2 mg Q1H PRN Administration Breakthrough agitation Methylprednisolone Sodium Succinate 40 mg 06/18/19 21:00 06/20/19 09:59 Solu-Medrol IVP 40 mg BID AFSANEH Administration Pantoprazole Sodium 40 mg 06/19/19 09:00 06/20/19 09:56 Protonix IVP 40 mg DAILY AFSANEH Administration Polyethylene Glycol 17 gm 06/16/19 09:00 06/20/19 09:58 Miralax PO 17 gm DAILY AFSANEH Administration Propofol 1,000 mg 06/16/19 11:26 06/18/19 22:14 Diprivan IV 07/16/19 11:26 1,000 mg INF PRN Administration TO ACHIEVE GOAL RASS Protocol Sodium Chloride 10 ml 06/18/19 10:02 06/20/19 09:56 Normal Saline Pf FS 10 ml PRN PRN Administration RECONSTITUTION - Exam General Appearance: NAD, awake alert Eye: PERRL ENT: normocephalic atraumatic, moist mucosa Neck: supple, symmetric, no lymphadenopathy Heart: no murmur, no gallops, no rubs Respiratory: CTAB, no rales, normal chest expansion, rhonchi, wheezes Respiratory - other findings: Poor air movement still clamped down Gastrointestinal: soft, non-tender, non-distended, no guarding, no rigidity Gastrointestinal - other findings: : Fox in postition Extremities: 1+ LE edema Skin: no lesions, no rashes Neurological: cranial nerve grossly intact, no focal deficits Musculoskeletal: normal tone, generalized weakness Psychiatric: normal affect, normal behavior, A&O x 3 Hosp A/P (1) Acute on chronic diastolic (congestive) heart failure Code(s): I50.33 - ACUTE ON CHRONIC DIASTOLIC (CONGESTIVE) HEART FAILURE Status : Acute (2) Acute on chronic respiratory acidosis Code(s): E87.2 - ACIDOSIS Status: Acute (3) Acute on chronic respiratory failure with hypercapnia Code(s): J96.22 - ACUTE AND CHRONIC RESPIRATORY FAILURE WITH HYPERCAPNIA Status: Acute (4) Aortic stenosis Code(s): I35.0 - NONRHEUMATIC AORTIC (VALVE) STENOSIS Status: Acute Qualifiers: Cardiac valve disease etiology: etiology unspecified Qualified Code(s): I35.0 - Nonrheumatic aortic (valve) stenosis (5) COPD exacerbation Code(s): J44.1 - CHRONIC OBSTRUCTIVE PULMONARY DISEASE W (ACUTE) EXACERBATION Status: Acute (6) Lung infiltrate Code(s): R91.8 - OTHER NONSPECIFIC ABNORMAL FINDING OF LUNG FIELD Status: Acute (7) Pneumonia Code(s): J18.9 - PNEUMONIA, UNSPECIFIED ORGANISM Status: Acute Qualifiers: Pneumonia type: due to unspecified organism Laterality: bilateral (8) DM type 2 (diabetes mellitus, type 2) Status: Chronic Qualifiers: Diabetes mellitus mcfp insulin use: without mcfp use (9) HTN (hypertension) Code(s): I10 - ESSENTIAL (PRIMARY) HYPERTENSION Status: Chronic Qualifiers: Hypertension type: essential hypertension Qualified Code(s): I10 - Essential (primary) hypertension (10) Physical deconditioning Code(s): R53.81 - OTHER MALAISE Status: Chronic (11) Tobacco abuse disorder Code(s): Z72.0 - TOBACCO USE Status: Chronic - Plan Plan: intensive care unit pulmonology/critical care consultation, recommendations appreciated Tolerated extubation, saturating well on low flow NC patient's pulmonary status is slowly improving, 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
--- NOTE | 2019-06-20 19:10 | PRG ---
DATE OF SERVICE: 06/20/2019 SUBJECTIVE: Edwige Acosta has no complaints. She is off BiPAP now. She is reasonably comfortable. I was surprised to hear that she was smoking up until the day she was admitted. OBJECTIVE: VITAL SIGNS: Heart rate 80, blood pressure 153/75, respiratory rate is 20. LUNGS: Distant and clear. HEART: Regular rhythm. ABDOMEN: Soft. IMPRESSION: 1. Advanced chronic obstructive pulmonary disease. 2. Chronic respiratory failure with hypoxemia and hypercarbia on presentation. Her admitting pCO2 is 114. 3. Tobacco use up until this admission. We will continue to follow. Hopefully, she will be stable to move out of Critical Care tomorrow. Job ID: [id number]
[2019-06-21] MEDS: HumaLOG 300 UNITS/3 ML VIAL SC PRN ×4 (00:23→18:48)
[2019-06-21] MEDS: hydrALAZINE 20 MG/ML VIAL SLOW IVP PRN (03:15)
[2019-06-21 04:36] LABS: #Lymphocytes 1.7 thou/uL (1.20-3.40); #Monocytes 0.6 thou/uL (0.11-0.59); #Neutrophils 7.7 thou/uL (1.40-6.50); %Basophils 0.2 % (0.0-1.0); %Eosinophils 0.2 % (0.0-10.0); %Lymphocytes 17.1 % (21.0-51.0); %Monocytes 6.4 % (0.0-10.0); %Neutrophils 76.1 % (42.0-75.0); Hemoglobin 14.2 g/dL (12.0-16.0); Mean Corpuscular HGB CONC 31.4 g/dL (32.0-36.0); Mean Corpuscular Hemoglobin 28.6 pg (27.0-31.0); Mean Corpuscular Volume 91.2 fL (78.0-98.0); Mean Platelet Volume 8.3 fL (7.4-10.4); Platelet Count 315 thou/uL (130-400); RBC Distribution Width 15.5 % (11.5-14.5); Red Blood Cell (RBC) Count 4.94 mill/uL (4.20-5.40); White Blood Cell (WBC) Count 10.1 thou/uL (4.8-10.8)
[2019-06-21 05:03] LABS: BUN (Urea Nitrogen) 17 mg/dL (9.8-20.1); Calc. Creatinine Clearance 98 mL/min (70-130); Calcium 9.6 mg/dL (7.8-10.44); Estimated GFR-MDRD Greater than 90; Glucose 175 mg/dL (80-115)
[2019-06-21] MEDS: cefTRIAXone\\ROCEPHIN 1 GM in Sodium Chloride 0.9% 100 ML IVPB SCH (05:06)
[2019-06-21 05:49] LABS: Anion Gap 17 mmol/L (10-20); Carbon Dioxide 37 mmol/L (23-31); Chloride 94 mmol/L (98-107); Potassium 3.7 mmol/L (3.5-5.1); Sodium 144 mmol/L (136-145)
[2019-06-21] MEDS: Azithromycin 500 MG in Sodium Chloride 0.9% 250 ML 250 ML IVPB SCH (08:02)
[2019-06-21] MEDS: Pantoprazole 40 MG VIAL IVP SCH (10:00)
[2019-06-21] MEDS: Enoxaparin Sodium 40 MG/0.4 ML SYRINGE SC SCH (10:00)
[2019-06-21] MEDS: methylPREDNISolone Sod Succ 40 MG VIAL IVP SCH ×2 (10:00→21:46)
[2019-06-21] MEDS: Polyethylene Glycol 3350 17 GM Packet PO SCH (10:01)
--- NOTE | 2019-06-21 14:01 | PDOC.HOSPP ---
- Subjective Subjective: Seen and examined. Patient continues to clinically improved. Patient ambulating with physical therapy and desaturated as low as 88% on nasal cannula. However I am very impressed she was able to walk so far and maintain her oxygen as well as she did. She is progressing faster than expected. Patient has improved air movement though her lungs are still very tight and wheezy. Time was given for questions, all questions answered in detail. - Objective Vital Signs & Weight: Vital Signs (12 hours) Temp Pulse Pulse Pulse Resp BP BP 06/21/19 10:14 89 22 H 06/21/19 09:22 104 H 91 152/74 H 154/68 H 06/21/19 08:00 97.8 F 06/21/19 07:05 92 23 H 06/21/19 05:00 98.1 F 06/21/19 03:15 89 22 H Pulse Ox Pulse Ox Pulse Ox 06/21/19 10:14 95 06/21/19 09:22 91 L 94 L 06/21/19 08:00 91 L 06/21/19 07:05 94 L 06/21/19 05:00 06/21/19 03:15 94 L Weight Admit Weight 162 lb Weight 148 lb 2.41 oz Most Recent Monitor Data Heart Rate from ECG 89 NIBP 142/65 NIBP BP-Mean 90 Respiration from ECG 26 SpO2 95 I&O: 06/20/19 06/21/19 06/22/19 06:59 06:59 06:59 Intake Total 960.4 1827 240 Output Total 2975 2270 200 Balance -2014.6 -443 40 Result Diagrams: 06/21/19 03:15 06/21/19 03:15 Additional Labs: Accuchecks 06/21/19 06/21/19 06/20/19 13:19 00:22 17:59 POC Glucose 195 H 188 H 183 H 06/20/19 14:41 POC Glucose 246 H Radiology Reviewed by me: Yes Hospitalist ROS - Review of Systems All other systems reviewed; all pertinent +/- noted in HPI/Subj - Medication Medications: Active Medications Generic Name Dose Route Start Last Admin Trade Name Freq PRN Reason Stop Dose Admin Acetaminophen 650 mg 06/16/19 04:47 06/20/19 04:16 Tylenol PO 650 mg Q4H PRN Administration Headache/Fever/Mild Pain (1-3) Albuterol/Ipratropium 3 ml 06/16/19 04:45 06/18/19 14:53 Duoneb EZPAP 3 ml [id number] PRN Administration SOB &/or Wheezing Albuterol/Ipratropium 3 ml 06/18/19 18:30 06/21/19 10:14 Duoneb NEB 3 ml [id number] AFSANEH Administration Enoxaparin Sodium 40 mg 06/16/19 09:00 06/21/19 10:00 Lovenox SC 40 mg 0900 AFSANEH Administration Hydralazine HCl 10 mg 06/16/19 04:46 06/21/19 03:15 Apresoline SLOW IVP 10 mg Q6H PRN Administration SBP GREATER THAN 160 Ceftriaxone Sodium 1 gm/ 100 mls @ 200 mls/hr 06/16/19 06:00 06/21/19 05:06 Sodium Chloride IVPB 100 mls Q24HR AFSANEH Administration Azithromycin 500 mg/ Sodium 250 mls @ 250 mls/hr 06/16/19 08:00 06/21/19 08: 02 Chloride IVPB 250 mls 0800 AFSANEH Administration Insulin Human Lispro 0 units 06/17/19 15:46 06/21/19 13:51 Humalog SC 2 unit .MODERATE SLIDING SC PRN Administration Moderate Correctional Scale Lorazepam 2 mg 06/16/19 11:26 06/17/19 12:22 Ativan SLOW IVP 07/16/19 11:26 2 mg Q1H PRN Administration Breakthrough agitation Methylprednisolone Sodium Succinate 40 mg 06/18/19 21:00 06/21/19 10:00 Solu-Medrol IVP 40 mg BID AFSANEH Administration Pantoprazole Sodium 40 mg 06/19/19 09:00 06/21/19 10:00 Protonix IVP 40 mg DAILY AFSANEH Administration Polyethylene Glycol 17 gm 06/16/19 09:00 06/21/19 10:01 Miralax PO 17 gm DAILY AFSANEH Administration Sodium Chloride 10 ml 06/18/19 10:02 06/20/19 09:56 Normal Saline Pf FS 10 ml PRN PRN Administration RECONSTITUTION - Exam General Appearance: NAD, awake alert Eye: PERRL ENT: normocephalic atraumatic, moist mucosa Neck: supple, symmetric, no lymphadenopathy Heart: no murmur, no gallops, no rubs Respiratory: no rales, normal chest expansion, rhonchi, wheezes (Improved aeration of the lungs, though still very wheezy) Gastrointestinal: soft, non-tender, no guarding, no rigidity Extremities: 1+ LE edema Skin: no lesions, no rashes Neurological: cranial nerve grossly intact, no focal deficits Musculoskeletal: generalized weakness Psychiatric: normal behavior, A&O x 3, flat affect Hosp A/P (1) Acute on chronic diastolic (congestive) heart failure Code(s): I50.33 - ACUTE ON CHRONIC DIASTOLIC (CONGESTIVE) HEART FAILURE Status : Acute (2) Acute on chronic respiratory acidosis Code(s): E87.2 - ACIDOSIS Status: Acute (3) Acute on chronic respiratory failure with hypercapnia Code(s): J96.22 - ACUTE AND CHRONIC RESPIRATORY FAILURE WITH HYPERCAPNIA Status: Acute (4) Aortic stenosis Code(s): I35.0 - NONRHEUMATIC AORTIC (VALVE) STENOSIS Status: Acute Qualifiers: Cardiac valve disease etiology: etiology unspecified Qualified Code(s): I35.0 - Nonrheumatic aortic (valve) stenosis (5) COPD exacerbation Code(s): J44.1 - CHRONIC OBSTRUCTIVE PULMONARY DISEASE W (ACUTE) EXACERBATION Status: Acute (6) Lung infiltrate Code(s): R91.8 - OTHER NONSPECIFIC ABNORMAL FINDING OF LUNG FIELD Status: Acute (7) Pneumonia Code(s): J18.9 - PNEUMONIA, UNSPECIFIED ORGANISM Status: Acute Qualifiers: Pneumonia type: due to unspecified organism Laterality: bilateral (8) DM type 2 (diabetes mellitus, type 2) Status: Chronic Qualifiers: Diabetes mellitus retirement insulin use: without long goods drier use (9) HTN (hypertension) Code(s): I10 - ESSENTIAL (PRIMARY) HYPERTENSION Status: Chronic Qualifiers: Hypertension type: essential hypertension Qualified Code(s): I10 - Essential (primary) hypertension (10) Physical deconditioning Code(s): R53.81 - OTHER MALAISE Status: Chronic (11) Tobacco abuse disorder Code(s): Z72.0 - TOBACCO USE Status: Chronic - Plan Plan: intensive care unit, stable for medical unit pulmonology/critical care consultation, recommendations appreciated saturating well on low flow NC patient's pulmonary status is slowly improving, 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
--- NOTE | 2019-06-21 20:09 | PRG ---
DATE OF SERVICE: 06/21/2019 SUBJECTIVE: Edwige Acosta says she is feeling better. She slept without BiPAP last night and states she did well. OBJECTIVE: VITAL SIGNS: She is afebrile. Respiratory rates in the teens, oximetry is in the 90s, blood pressure 142/78 this afternoon. LUNGS: Clear and distant. HEART: Regular rhythm. ABDOMEN: Soft. EXTREMITIES: Without edema. LABORATORY DATA: White count 10.1, hemoglobin 14.2, platelets 315. Sodium 144, potassium 3.7, chloride 94, bicarb 37, BUN 17, creatinine 0.59. IMPRESSION AND PLAN: Respiratory failure, acute on chronic with hypercarbia and hypoxemia secondary to chronic obstructive pulmonary disease, clinically improved. She is stable to move out of the Critical Care Unit. She can be switched to p.o. antimicrobial therapy and p.o. steroids in the morning in my opinion. Job ID: [id number]
[2019-06-22 05:17] LABS: #Lymphocytes 1.1 thou/uL (1.20-3.40); #Monocytes 0.4 thou/uL (0.11-0.59); #Neutrophils 6.2 thou/uL (1.40-6.50); %Basophils 0.3 % (0.0-1.0); %Eosinophils 0.1 % (0.0-10.0); %Lymphocytes 14.3 % (21.0-51.0); %Neutrophils 80.3 % (42.0-75.0); Hemoglobin 13.8 g/dL (12.0-16.0); Mean Corpuscular HGB CONC 31.5 g/dL (32.0-36.0); Mean Corpuscular Hemoglobin 28.6 pg (27.0-31.0); Mean Corpuscular Volume 90.7 fL (78.0-98.0); Mean Platelet Volume 7.6 fL (7.4-10.4); Platelet Count 281 thou/uL (130-400); RBC Distribution Width 15.5 % (11.5-14.5); Red Blood Cell (RBC) Count 4.82 mill/uL (4.20-5.40); White Blood Cell (WBC) Count 7.7 thou/uL (4.8-10.8)
[2019-06-22 05:37] LABS: BUN (Urea Nitrogen) 13 mg/dL (9.8-20.1); Calc. Creatinine Clearance 98 mL/min (70-130); Calcium 9.2 mg/dL (7.8-10.44); Estimated GFR-MDRD Greater than 90; Glucose 222 mg/dL (80-115)
[2019-06-22 05:46] LABS: Anion Gap 16 mmol/L (10-20); Carbon Dioxide 35 mmol/L (23-31); Chloride 95 mmol/L (98-107); Potassium 3.9 mmol/L (3.5-5.1); Sodium 142 mmol/L (136-145)
[2019-06-22] MEDS: cefTRIAXone\\ROCEPHIN 1 GM in Sodium Chloride 0.9% 100 ML IVPB SCH (06:05)
[2019-06-22] MEDS: Pantoprazole 40 MG VIAL IVP SCH (08:29)
[2019-06-22] MEDS: Enoxaparin Sodium 40 MG/0.4 ML SYRINGE SC SCH (08:29)
[2019-06-22] MEDS: methylPREDNISolone Sod Succ 40 MG VIAL IVP SCH (08:29)
[2019-06-22] MEDS: Azithromycin 500 MG in Sodium Chloride 0.9% 250 ML 250 ML IVPB SCH (08:29)
[2019-06-22] MEDS: Polyethylene Glycol 3350 17 GM Packet PO SCH (09:10)
--- NOTE | 2019-06-22 11:24 | PDOC.HOSPP ---
- Subjective Subjective: Seen and examined. Continues to improve with pulmonary function, though still wheezing and short of breath with much movement. What concerns me is that patient cannot tell a difference in her lung when a COPD exacerbation is starting. Patient does not know when to seek help for COPD problems, she does not follow up with PCP and Pulm as directed. She continues to smoke. Overall if she does not drastically change the exacerbations will continue with increasing frequency. She wants to go home, anticipate home in the next 24-48 hours if continues to improve. - Objective Vital Signs & Weight: Vital Signs (12 hours) Temp Pulse Resp BP Pulse Ox 06/22/19 10:48 100 16 06/22/19 08:24 97 06/22/19 08:23 86 16 06/22/19 08:08 98.1 F 95 18 147/71 H 95 06/22/19 05:08 98.3 F 95 18 158/71 H 94 L 06/22/19 02:10 103 H 12 94 L 06/22/19 00:34 98.2 F 103 H 18 153/74 H 94 L Weight Admit Weight 162 lb Weight 148 lb 2.41 oz Most Recent Monitor Data Heart Rate from ECG 102 NIBP 153/93 NIBP BP-Mean 113 Respiration from ECG 16 SpO2 95 I&O: 06/21/19 06/22/19 06/23/19 06:59 06:59 06:59 Intake Total 1827 1055 Output Total 2270 700 Balance -443 355 Result Diagrams: 06/22/19 05:04 06/22/19 05:04 Additional Labs: Accuchecks 06/22/19 06/21/19 06/21/19 05:13 21:06 18:51 POC Glucose 199 H 115 H 274 H 06/21/19 13:19 POC Glucose 195 H Radiology Reviewed by me: Yes Hospitalist ROS - Review of Systems All other systems reviewed; all pertinent +/- noted in HPI/Subj - Medication Medications: Active Medications Generic Name Dose Route Start Last Admin Trade Name Freq PRN Reason Stop Dose Admin Acetaminophen 650 mg 06/16/19 04:47 06/20/19 04:16 Tylenol PO 650 mg Q4H PRN Administration Headache/Fever/Mild Pain (1-3) Albuterol/Ipratropium 3 ml 06/16/19 04:45 06/18/19 14:53 Duoneb EZPAP 3 ml [id number] PRN Administration SOB &/or Wheezing Albuterol/Ipratropium 3 ml 06/18/19 18:30 06/22/19 10:48 Duoneb NEB 3 ml [id number] AFSANEH Administration Enoxaparin Sodium 40 mg 06/16/19 09:00 06/22/19 08:29 Lovenox SC 40 mg 0900 AFSANEH Administration Hydralazine HCl 10 mg 06/16/19 04:46 06/21/19 03:15 Apresoline SLOW IVP 10 mg Q6H PRN Administration SBP GREATER THAN 160 Ceftriaxone Sodium 1 gm/ 100 mls @ 200 mls/hr 06/16/19 06:00 06/22/19 06:05 Sodium Chloride IVPB 100 mls Q24HR AFSANEH Administration Azithromycin 500 mg/ Sodium 250 mls @ 250 mls/hr 06/16/19 08:00 06/22/19 08: 29 Chloride IVPB 250 mls 0800 AFSANEH Administration Insulin Human Lispro 0 units 06/17/19 15:46 06/21/19 18:48 Humalog SC 6 unit .MODERATE SLIDING SC PRN Administration Moderate Correctional Scale Lorazepam 2 mg 06/16/19 11:26 06/17/19 12:22 Ativan SLOW IVP 07/16/19 11:26 2 mg Q1H PRN Administration Breakthrough agitation Methylprednisolone Sodium Succinate 40 mg 06/18/19 21:00 06/22/19 08:29 Solu-Medrol IVP 40 mg BID AFSANEH Administration Pantoprazole Sodium 40 mg 06/19/19 09:00 06/22/19 08:29 Protonix IVP 40 mg DAILY AFSANEH Administration Polyethylene Glycol 17 gm 06/16/19 09:00 06/22/19 09:10 Miralax PO Not Given DAILY AFSANEH Sodium Chloride 10 ml 06/18/19 10:02 06/20/19 09:56 Normal Saline Pf FS 10 ml PRN PRN Administration RECONSTITUTION - Exam General Appearance: NAD, awake alert Eye: anicteric sclera ENT: normocephalic atraumatic, moist mucosa Neck: supple, symmetric, no lymphadenopathy Heart: no murmur, no gallops, no rubs Respiratory: no rales, no tachypnea, rhonchi, wheezes (Improving though there is still poor air movement.) Gastrointestinal: soft, non-tender, no guarding, no rigidity Extremities: no edema Skin: no lesions, no rashes Neurological: cranial nerve grossly intact, no new deficit Musculoskeletal: generalized weakness Psychiatric: A&O x 3, flat affect Hosp A/P (1) Acute on chronic diastolic (congestive) heart failure Code(s): I50.33 - ACUTE ON CHRONIC DIASTOLIC (CONGESTIVE) HEART FAILURE Status : Acute (2) Acute on chronic respiratory acidosis Code(s): E87.2 - ACIDOSIS Status: Acute (3) Acute on chronic respiratory failure with hypercapnia Code(s): J96.22 - ACUTE AND CHRONIC RESPIRATORY FAILURE WITH HYPERCAPNIA Status: Acute (4) Aortic stenosis Code(s): I35.0 - NONRHEUMATIC AORTIC (VALVE) STENOSIS Status: Acute Qualifiers: Cardiac valve disease etiology: etiology unspecified Qualified Code(s): I35.0 - Nonrheumatic aortic (valve) stenosis (5) COPD exacerbation Code(s): J44.1 - CHRONIC OBSTRUCTIVE PULMONARY DISEASE W (ACUTE) EXACERBATION Status: Acute (6) Lung infiltrate Code(s): R91.8 - OTHER NONSPECIFIC ABNORMAL FINDING OF LUNG FIELD Status: Acute (7) Pneumonia Code(s): J18.9 - PNEUMONIA, UNSPECIFIED ORGANISM Status: Acute Qualifiers: Pneumonia type: due to unspecified organism Laterality: bilateral (8) DM type 2 (diabetes mellitus, type 2) Status: Chronic Qualifiers: Diabetes mellitus penitentiary insulin use: without termite treater helper use (9) HTN (hypertension) Code(s): I10 - ESSENTIAL (PRIMARY) HYPERTENSION Status: Chronic Qualifiers: Hypertension type: essential hypertension Qualified Code(s): I10 - Essential (primary) hypertension (10) Physical deconditioning Code(s): R53.81 - OTHER MALAISE Status: Chronic (11) Tobacco abuse disorder Code(s): Z72.0 - TOBACCO USE Status: Chronic - Plan Plan: medical unit pulmonology/critical care consultation, recommendations appreciated saturating well on low flow NC patient's pulmonary status is slowly improving, 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
[2019-06-22] MEDS: HumaLOG 300 UNITS/3 ML VIAL SC PRN ×2 (12:16→17:02)
[2019-06-22 14:15] VITALS: BMI 28.9
--- NOTE | 2019-06-22 19:32 | PRG ---
DATE OF SERVICE: 06/22/2019 SUBJECTIVE: Edwige Acosta is in no distress. She has no complaints. She has been ambulating around the unit. OBJECTIVE: VITAL SIGNS: Her vital signs have been stable. Her blood pressure is 147/71, heart rates in the 80s, respiratory rates in the teens, oximetry is 95% to 97% on 3 L cannula. LUNGS: Distant, clear. HEART: Regular rhythm. ABDOMEN: Soft. EXTREMITIES: Without edema. LABORATORY DATA: White count 7.7, hemoglobin 13.8, platelets 281. Sodium 142, potassium 3.9, chloride 95, bicarb 35, BUN 13, creatinine 0.58. IMPRESSION: Acute hypoxic and hypercarbic respiratory failure with severe underlying chronic obstructive pulmonary disease and ongoing tobacco use up until this admission. She is probably a candidate for discharge tomorrow. Smoking abstinence was again discussed. Job ID: [id number]
[2019-06-22] MEDS: Cefuroxime Axetil 250 MG TAB PO SCH (19:44)
[2019-06-23 07:35] VITALS: TEMP 98.3
[2019-06-23] MEDS ORDERED: predniSONE 20 MG TAB PO SCH (08:00)
[2019-06-23] MEDS: Cefuroxime Axetil 250 MG TAB PO SCH (08:39)
[2019-06-23] MEDS: Pantoprazole 40 MG VIAL IVP SCH (08:39)
[2019-06-23] MEDS: Enoxaparin Sodium 40 MG/0.4 ML SYRINGE SC SCH (08:40)
[2019-06-23] MEDS: Polyethylene Glycol 3350 17 GM Packet PO SCH (10:33)
--- NOTE | 2019-06-23 11:35 | PQF ---
CLINICAL DOCUMENTATION IMPROVEMENT CLARIFICATION FORM: ICD-10 Updated PLEASE DO AN ADDENDUM TO THE PROGRESS NOTE WITH ANY DOCUMENTATION UPDATES OR ADDITIONS AND CARRY THROUGH TO DC SUMMARY. THANK YOU. DATE: 06/23/2019 ATTN: Dr. Brower Please exercise your independent, professional judgment in responding to the clarification form. Clinical indicators are provided on the bottom of this form for your review Please check appropriate box(s) to clarify if the following diagnosis has been ruled in or ruled out: SEPSIS [ XX ] Ruled in diagnosis [ ] Continue to treat [ ] Resolved [ ] Ruled out diagnosis [ ] Cannot rule out diagnosis [ ] Other diagnosis [ ] Unable to determine In addition, please specify: Present on Admission (POA): [ XX ] Yes [ ] No [ ] Unable to determine For continuity of documentation, please document condition throughout progress notes and discharge summary. Thank You. CLINICAL INDICATORS - SIGNS / SYMPTOMS / LABS / RESULTS AND LOCATION IN MR ER RECORD: VS: BP 156/86 Pulse 120, Resp 35, O2 sat 99 on (Bipap) Temp 99.6 H&P 1/2: Lab results: WBC 13.6 Sepsis due to above - acute hypoxic and hypercapneic respiratory failure RISKS: H&P 1/2: PMH T2 DM; COPD,CHF. PN 1/2: Chronic obstructive pulmonary disease exacerbation. Pneumonia. TREATMENT: Order 1/2 - 06/22: IV Rocephin and IV Zithromax Thank you, Karlee (This form is maintained as a part of the permanent medical record) 2015 [employer] All Rights Reserved Karlee Yost RN, BSN [email or web address] Office: [phone] [facility]
[2019-06-23] MEDS: HumaLOG 300 UNITS/3 ML VIAL SC PRN (12:36)
--- NOTE | 2019-06-23 14:19 | PDOC.EVN ---
Event Note - Event Note Event Note: Seen and examined. Setting up home oxygen. Plan for discharge today. Patient diagnosed with pneumonia on admission. Chest x-ray with interstitial infiltrates suggestive of pneumonia. Pneumonia has resolved. Patient with acute on chronic COPD. Patient was taken off oxygen and at rest her O2 saturation drop down to 85. Case management consultation requested to help set up home oxygen prior to discharge. Medication sent to patient's preferred pharmacy.
[2019-06-23 16:31] VITALS: BP 163/72
--- NOTE | 2019-06-23 21:13 | DIS ---
DATE OF ADMISSION: 06/16/2019 DATE OF DISCHARGE: 06/23/2019 REASON FOR HOSPITALIZATION: Shortness of breath. PROCEDURES PERFORMED AND TREATMENTS RENDERED: Ms. Acosta is a pleasant 69-year-old female who is well known to [facility] for frequent COPD exacerbations. The patient presents on 06/16/2019, with shortness of breath. The patient initially placed on BiPAP therapy, however, the patient remained hypoxic and she required intubation. The patient was admitted to the intensive care unit under the care of critical care physician-please see full history and physical from internal medicine physician and consultation notes from channel worker for full details. Once intubated and admitted to the intensive care unit, the patient was placed on appropriate medical therapy including antibiotics, steroids, breathing treatments, and home medications. The patient was safely trialed and weaned from the ventilator and extubated. The patient's antibiotics and steroids were titrated appropriately by derrick boat runner. The patient continued to improve and worked well with Physical Therapy, walking several 100 feet, which is quite well for her considering recent intubation. Unfortunately, this patient continues to smoke cigarettes and this is the leading contributing factor to her end-stage COPD. The patient is well known to me as I discharged her from the hospital last month for COPD exacerbation. The patient's oxygen requirements continued to improve with maximum medical therapy and she returned to her baseline oxygen requirements with nasal cannula. Efforts were made with Case Management to set up the patient and ensure that all oxygen including concentrators, portable tanks, and all appropriate equipment were set up prior to discharge. After the patient was cleared by Pulmonology, the patient was discharged on 27/02/2020. CONDITION ON DISCHARGE: Stable. SPECIFIC INSTRUCTIONS FOR THE PATIENT/FAMILY: 1. The patient is recommended to stop all tobacco use. 2. The patient is recommended to take all medications as directed, to be re-evaluated by primary care physician and Pulmonology in the upcoming weeks. 3. The patient is recommended to follow up with primary care physician in the next 5 to 7 days. 4. The patient is recommended to follow up with Pulmonology in the next 1 to 2 weeks. 5. The patient is recommended to return to acute care hospital immediately if signs or symptoms return, worsen, or any other new symptoms occur. TIME SPENT: Greater than 38 minutes spent coordinating care and discharge process for this patient. Job ID: [id number]
== END 2019-06-23 16:42 | disposition home health service (06) | DRG 871 ==
LOC: ERS 02:04 → CCU 03:22 → T4-B 06-21 19:29
PROVIDERS: ADMIT Internal Medicine; ATTEND Internal Medicine
PROC: 0BH17EZ Insertion of Endotracheal Airway into Trachea, Via Natural or Artificial Opening (ICD-10-PCS; principal; 2019-06-16)
PROC: 5A1945Z Respiratory Ventilation, 24-96 Consecutive Hours (ICD-10-PCS; 2019-06-16)
DX: A41.9 Sepsis, unspecified organism (principal); J96.21 Acute and chronic respiratory failure with hypoxia; I50.33 Acute on chronic diastolic (congestive) heart failure; J18.9 Pneumonia, unspecified organism; J96.22 Acute and chronic respiratory failure with hypercapnia; J44.1 Chronic obstructive pulmonary disease with (acute) exacerbation; E87.2 Acidosis; J44.0 Chronic obstructive pulmonary disease with (acute) lower respiratory infection; E78.5 Hyperlipidemia, unspecified; I35.0 Nonrheumatic aortic (valve) stenosis; R53.81 Other malaise; E11.9 Type 2 diabetes mellitus without complications; Z88.5 Allergy status to narcotic agent; Z88.0 Allergy status to penicillin; Z88.8 Allergy status to other drugs, medicaments and biological substances
CPT/HCPCS: 31500; 36415; 36416; 51702; 71045; 80048; 80053; 82553; 82805; 83605; 83880; 84484; 85025; 87040; 87149; 93005; 94002; 94003; 94640; 94660; 96365; 96367; 96375; 96376; 99292; C9113; J0360; J0456; J0696; J1650; J1940; J2060; J2704; J2920; J2930; J3010; J3475; J3490; J7050; J7512; J7611; J7620

== ENCOUNTER 2020-01-03 10:43 | Outpatient (CLI) | payer MEDICARE ==
--- NOTE | 2020-01-03 10:58 | RAD ---
EXAM: Chest PA and lateral: HISTORY: Severe chronic obstructive pulmonary disease, shortness of breath COMPARISON: 06/18/2019, 10/20/2018 FINDINGS: Increased linear interstitial markings and bronchovascular markings bilaterally with mild hyperinflat ion, stable Heart size:Within normal limits. Lungs:Clear of acute process. No confluent pneumonia, overt edema, pleural effusion, or other acute process. IMPRESSION: Stable-appearing chronic lung changes. Atherosclerosis of the aorta.
== END 2020-01-03 10:44 | disposition home or self-care (01) ==
LOC: BICRAD 10:43
PROVIDERS: ATTEND Internal Medicine
DX: J44.9 Chronic obstructive pulmonary disease, unspecified (principal); I70.0 Atherosclerosis of aorta; R91.8 Other nonspecific abnormal finding of lung field
CPT/HCPCS: 71046

== ENCOUNTER 2020-03-21 09:26 | Outpatient (CLI) | payer MEDICARE ==
--- NOTE | 2020-03-21 10:27 | RAD ---
CHEST 2 VIEWS: Date: 03/21/2020 HISTORY: Severe COPD. COMPARISON: 01/03/2020. FINDINGS: The heart size is normal. The lungs are expanded with stable chronic parenchymal changes. No lobar co nsolidation, pneumothoraces, or pleural effusions are seen. There are degenerative changes in the spi ne. IMPRESSION: Stable exam. No acute process. POS: AH
== END 2020-03-21 09:27 | disposition home or self-care (01) ==
LOC: BICRAD 09:26
PROVIDERS: ATTEND Internal Medicine
DX: J44.9 Chronic obstructive pulmonary disease, unspecified (principal)
CPT/HCPCS: 71046

== ENCOUNTER 2020-07-11 08:08 | Outpatient (CLI) | payer MEDICARE ==
--- NOTE | 2020-07-11 08:31 | ULT ---
EXAM: Left lower extremity venous Doppler US HISTORY: left lower extremity edema and pain FINDINGS: Grayscale, color-flow, Doppler evaluation, spectral analysis of the left lower extremity venous struc tures is performed with 2-D imaging. The left common femoral, superficial femoral, popliteal, posterior tibial, proximal greater saphenous and profunda femoral veins are imaged. There is normal luminal compressibility, flow, and augmentation the visualized deep venous structures of the left lower extremity. IMPRESSION: No evidence of a deep vein thrombosis in the left lower extremity.
== END 2020-07-11 08:09 | disposition home or self-care (01) ==
LOC: BICULT 08:08
PROVIDERS: ATTEND Internal Medicine
DX: M79.662 Pain in left lower leg (principal)

== ENCOUNTER 2020-08-08 10:36 | Outpatient (CLI) | payer MEDICARE ==
--- NOTE | 2020-08-08 11:52 | CT ---
EXAM: CT ABDOMEN AND PELVIS HISTORY: Abdominal swelling. COMPARISON: None.. Procedure: Multiple contiguous axial images were obtained and a CT of the abdomen and pelvis with IV contrast. C oronal reformats were performed. FINDINGS: Lower Chest: Lung bases are clear. Vessels: Normal caliber aorta. There is extensive atherosclerosis with calcified and noncalcified talib que. Heart: Normal heart size. No significant pericardial fluid. Abdomen: Portal vein:Patent. Gallbladder: No calcified gallstones. Normal caliber wall. Liver: within normal limits. Pancreas: within normal limits. Spleen: within normal limits. Adrenals: within normal limits. Kidneys: Bilateral nonobstructing intrarenal calculi. Symmetric enhancement of the kidneys. Bilateral ly no obstructive uropathy. Peritoneum: No ascites or free air, no fluid collection. Bowel: Gastric mucosa, duodenum and small bowel loops have a overall normal appearance. No evidence o f a small bowel obstruction. Normal ileocecal junction. Normal caliber appendix. Contrast and fecal material are noted in the nondistended, nondilated colon. There is diverticulosis in the left hemicol on. Mucosal thickening of the sigmoid colon likely due to remote bouts of inflammation. No evidence of diverticulitis. Mesentery and Retroperitoneum: No enlarged mesenteric or retroperitoneal lymph nodes. Abdominal Wall: Small abdominal hernia with fat. Pelvis: Reproductive Organs: Reproductive organs are unremarkable. Pelvis: No mass, lymphadenopathy, free air or free fluid. Bladder: within normal limits. Bones: within normal limits. IMPRESSION: 1. No acute abnormality in the abdomen and pelvis. 2. Bilateral nonobstructing intrarenal calculi. 3. Normal caliber appendix. 4. Diverticulosis, without evidence of diverticulitis. Mucosal thickening of the sigmoid colon likely due to remote bouts of inflammation. Colonoscopy if clinically warranted. Transcribed Date/Time: 08/08/2020 11:58 AM
[2020-08-08] MEDS ORDERED: Iopamidol 370 76% 100 ML VIAL ONE (14:23)
== END 2020-08-08 10:37 | disposition home or self-care (01) ==
LOC: CT 10:36
PROVIDERS: ATTEND Internal Medicine
DX: R19.00 Intra-abdominal and pelvic swelling, mass and lump, unspecified site (principal); N20.0 Calculus of kidney; K57.30 Diverticulosis of large intestine without perforation or abscess without bleeding; K63.89 Other specified diseases of intestine
CPT/HCPCS: 74177; 82565; Q9967

== ENCOUNTER 2021-08-06 09:54 | Emergency (ER) | payer MEDICARE ==
[2021-08-06 11:27] LABS: #Lymphocytes 0.6 thou/uL (1.20-3.40); #Monocytes 0.7 thou/uL (0.11-0.59); #Neutrophils 7.4 thou/uL (1.40-6.50); %Basophils 0.2 % (0.0-1.0); %Eosinophils 0.2 % (0.0-10.0); %Lymphocytes 6.9 % (21.0-51.0); %Monocytes 8.2 % (0.0-10.0); %Neutrophils 84.5 % (42.0-75.0); Hemoglobin 13.3 g/dL (12.0-16.0); Mean Corpuscular HGB CONC 30.6 g/dL (32.0-36.0); Mean Corpuscular Volume 91.5 fL (78.0-98.0); Mean Platelet Volume 6.8 fL (7.4-10.4); Platelet Count 197 thou/uL (130-400); RBC Distribution Width 13.5 % (11.5-14.5); Red Blood Cell (RBC) Count 4.74 mill/uL (4.20-5.40); White Blood Cell (WBC) Count 8.8 thou/uL (4.8-10.8)
[2021-08-06] MEDS ORDERED: methylPREDNISolone Sod Succ/PF 125 MG/2 ML VIAL ONE ×2 (11:34→11:35)
[2021-08-06 11:54] LABS: ALT (SGPT) 17 U/L (8-55); AST (SGOT) 23 U/L (5-34); Alkaline Phosphatase 78 U/L (40-110); Anion Gap 19 mmol/L (10-20); BUN (Urea Nitrogen) 18 mg/dL (9.8-20.1); Bilirubin, Total 0.2 mg/dL (0.2-1.2); Calc. Creatinine Clearance 0 mL/min (70-130); Carbon Dioxide 28 mmol/L (23-31); Chloride 93 mmol/L (98-107); Globulin 3.8 g/dL (2.4-3.5); Glucose 171 mg/dL (80-115); Potassium 4.4 mmol/L (3.5-5.1); Protein, Total 7.8 g/dL (5.8-8.1); Sodium 136 mmol/L (136-145)
[2021-08-06 12:44] LABS: CKMB 1.6 ng/mL (0-6.6)
[2021-08-06 14:47] LABS: Troponin I 0.034 ng/mL (< 0.028)
[2021-08-06 23:47] LABS: SARS-CoV-2 PCR by NAA Not Detected (NotDetected)
== END 2021-08-06 15:22 | disposition home or self-care (01) ==
LOC: ERS 09:54
DX: J44.1 Chronic obstructive pulmonary disease with (acute) exacerbation (principal); Z20.822 Contact with and (suspected) exposure to COVID-19; Z79.899 Other long term (current) drug therapy; E11.9 Type 2 diabetes mellitus without complications; I11.0 Hypertensive heart disease with heart failure; I50.9 Heart failure, unspecified; E78.00 Pure hypercholesterolemia, unspecified; F17.210 Nicotine dependence, cigarettes, uncomplicated
CPT/HCPCS: 71045; 80053; 82553; 83880; 84484 ×2; 85025; 93005; U0003; U0005; 36415; J2930; J7620

== ENCOUNTER 2021-08-07 12:14 | Inpatient (IN) | payer MEDICARE, OTHER ==
[2021-08-07 12:36] LABS: Hemoglobin 13.9 g/dL (12.0-16.0); Mean Corpuscular HGB CONC 30.5 g/dL (32.0-36.0); Mean Corpuscular Hemoglobin 28.4 pg (27.0-31.0); Mean Corpuscular Volume 93.1 fL (78.0-98.0); Mean Platelet Volume 7.1 fL (7.4-10.4); Platelet Count 224 thou/uL (130-400); RBC Distribution Width 13.3 % (11.5-14.5); Red Blood Cell (RBC) Count 4.88 mill/uL (4.20-5.40); White Blood Cell (WBC) Count 20.8 thou/uL (4.8-10.8)
[2021-08-07 13:01] LABS: ALT (SGPT) 21 U/L (8-55); AST (SGOT) 26 U/L (5-34); Alkaline Phosphatase 80 U/L (40-110); Anion Gap 20 mmol/L (10-20); BUN (Urea Nitrogen) 34 mg/dL (9.8-20.1); Bilirubin, Total 0.2 mg/dL (0.2-1.2); Calc. Creatinine Clearance 0 mL/min (70-130); Calcium 9.4 mg/dL (7.8-10.44); Carbon Dioxide 30 mmol/L (23-31); Chloride 95 mmol/L (98-107); Globulin 4.3 g/dL (2.4-3.5); Glucose 213 mg/dL (80-115); Protein, Total 8.3 g/dL (5.8-8.1); Sodium 140 mmol/L (136-145)
[2021-08-07 13:05] LABS: Band 33 % (5-11); Lymphocytes 6 % (21-51); MDiff Complete? YES; Monocytes 8 % (0-10); Neutrophil 53 % (42-75); Platelet Morphology Comment Appears Adequate; RBC Morphology Normal
[2021-08-07] MEDS ORDERED: Azithromycin 500 MG VIAL ONE (13:50)
[2021-08-07] MEDS ORDERED: Ipratropium Bromide 2.5 ml Neb NEB PRN (13:53)
[2021-08-07] MEDS ORDERED: Dextrose 50% Abboject 50 ML SYRINGE SLOW IVP PRN (13:59)
[2021-08-07] MEDS ORDERED: Ondansetron PF 4 MG/2 ML Vial IVP PRN (13:59)
[2021-08-07] MEDS ORDERED: Dextrose 5% in Water 1,000 ML IV PRN (13:59)
[2021-08-07] MEDS ORDERED: Acetaminophen 325 MG TAB PO PRN (13:59)
[2021-08-07] MEDS ORDERED: Enoxaparin Sodium 40 MG/0.4 ML SYRINGE SC SCH (14:45)
[2021-08-07 14:58] LABS: Analyzer IN Cardio ER; Base Excess (BEa) 2.9 mEq/L (-2.0 to +3.0); Calcium, Ionized (arterial) 1.17 mmol/L (1.12-1.30); Carboxyhemoglobin (COHb) 0.6 gm% (0.0-3.0); Hemoglobin (Hb) 13.5 g/dL (12.0-16.0); O2 Tension (PaO2), arterial 88.4 mmHg (> 70.0); Potassium - ABG Lab 4.72 mmol/L (3.70-5.30)
[2021-08-07 15:03] LABS: CO2 Tension 91.4 mmHg (35.0-45.0); pH, Arterial 7.19 (7.35-7.45)
[2021-08-07 15:04] LABS: Puncture Site LRA
[2021-08-07] MEDS ORDERED: cefTRIAXone\\ROCEPHIN 2 GM VIAL ONE (15:43)
[2021-08-07 16:54] LABS: CKMB 4.6 ng/mL (0-6.6)
[2021-08-07 17:12] LABS: SARS-CoV-2 NAA Rapid Test Not Detected (NotDetected)
[2021-08-07 17:40] VITALS: BMI 24.9
[2021-08-07 18:19] LABS: Bacteria/HPF None Seen HPF (None Seen); Bilirubin Negative (Negative); Blood, Urine 1+ (Negative); Clarity Clear (Clear); Glucose, Urine (Dipstick) Greater than 1000 mg/dL (Negative); Ketone, Urine Negative (Negative); Leukocyte Negative Leu/uL (Negative); Nitrite Negative (Negative); Protein, Urine (Dipstick) Negative (Neg-Trace); RBC/HPF 0-3 HPF (0-3); Specific Gravity, Urine 1.013 (1.002-1.036); Squamous Epithelial None Seen HPF (0-3); Urobilinogen Normal mg/dL (Less than 2); WBC/HPF None Seen HPF (0-3)
[2021-08-07] MEDS: methylPREDNISolone Sod Succ 40 MG VIAL IVP SCH (18:26)
[2021-08-07] MEDS: Nicotine 21 MG PATCH TD SCH (18:26)
[2021-08-07 18:41] LABS: Base Excess 3.6 mEq/L (-2.0 to +3.0); Calcium, Ionized (venous) 1.03 mmol/L (1.16-1.32); Chloride (VBG) 100 mmol/L (98-106); Hemoglobin (Hb) 13.6 g/dL (11.7-16.1); Potassium (VBG) 5.03 mmol/L (3.70-5.30); Sodium 138.4 mmol/L (133-146); pH (venous) 7.33 (7.32-7.43)
[2021-08-07 18:43] LABS: Actual Bicarbonate (HCO3v) 31 mEq/L (22-28)
[2021-08-07] MEDS ORDERED: Famotidine 20 MG TAB PO SCH (21:00)
[2021-08-07] MEDS: Atorvastatin Calcium 40 MG TAB PO SCH (21:57)
[2021-08-07] MEDS: Lisinopril 20 MG TAB PO SCH (21:57)
[2021-08-07] MEDS: Cilostazol 100 MG TAB PO SCH (21:58)
[2021-08-07] MEDS: HumaLOG 300 UNITS/3 ML VIAL SC PRN (22:53)
[2021-08-08] MEDS: methylPREDNISolone Sod Succ 40 MG VIAL IVP SCH ×4 (00:28→17:51)
[2021-08-08 03:35] LABS: #Lymphocytes 0.8 thou/uL (1.20-3.40); #Monocytes 0.6 thou/uL (0.11-0.59); #Neutrophils 12.3 thou/uL (1.40-6.50); %Basophils 0.2 % (0.0-1.0); %Eosinophils 0.1 % (0.0-10.0); %Lymphocytes 5.5 % (21.0-51.0); %Monocytes 4.1 % (0.0-10.0); %Neutrophils 90.1 % (42.0-75.0); Hemoglobin 13.2 g/dL (12.0-16.0); Mean Corpuscular HGB CONC 31.4 g/dL (32.0-36.0); Mean Corpuscular Hemoglobin 29.5 pg (27.0-31.0); Mean Corpuscular Volume 93.8 fL (78.0-98.0); Mean Platelet Volume 7.2 fL (7.4-10.4); Platelet Count 175 thou/uL (130-400); RBC Distribution Width 13.4 % (11.5-14.5); Red Blood Cell (RBC) Count 4.46 mill/uL (4.20-5.40); White Blood Cell (WBC) Count 13.7 thou/uL (4.8-10.8)
[2021-08-08 03:54] LABS: Anion Gap 14 mmol/L (10-20); BUN (Urea Nitrogen) 30 mg/dL (9.8-20.1); Calc. Creatinine Clearance 77 mL/min (70-130); Calcium 8.7 mg/dL (7.8-10.44); Carbon Dioxide 30 mmol/L (23-31); Chloride 99 mmol/L (98-107); Glucose 158 mg/dL (80-115); Potassium 5.1 mmol/L (3.5-5.1); Sodium 138 mmol/L (136-145)
[2021-08-08] MEDS: HumaLOG 300 UNITS/3 ML VIAL SC PRN ×3 (07:08→22:26)
[2021-08-08] MEDS ORDERED: Glimepiride 1 MG TAB PO SCH (07:30)
[2021-08-08] MEDS: Furosemide 40 MG TAB PO SCH (07:36)
[2021-08-08] MEDS: Enoxaparin Sodium 40 MG/0.4 ML SYRINGE SC SCH (08:58)
[2021-08-08] MEDS: Famotidine 20 MG TAB PO SCH ×2 (08:58→20:32)
[2021-08-08] MEDS: Amlodipine 10 MG TAB PO SCH (08:58)
[2021-08-08] MEDS: Lisinopril 20 MG TAB PO SCH ×2 (08:59→20:32)
[2021-08-08] MEDS: Nicotine 21 MG PATCH TD SCH (15:53)
[2021-08-08] MEDS ORDERED: FLU VACC QS2021-22(65YR UP)/PF 240 MCG/0.7 ML SYRINGE IM ONE (18:00)
[2021-08-08] MEDS: Atorvastatin Calcium 40 MG TAB PO SCH (20:32)
[2021-08-08] MEDS: Cilostazol 100 MG TAB PO SCH (20:32)
[2021-08-09] MEDS: methylPREDNISolone Sod Succ 40 MG VIAL IVP SCH ×3 (00:29→20:22)
[2021-08-09] MEDS: HumaLOG 300 UNITS/3 ML VIAL SC PRN ×4 (05:40→22:45)
[2021-08-09 06:02] LABS: Mean Corpuscular HGB CONC 31.1 g/dL (32.0-36.0); Mean Corpuscular Volume 93.3 fL (78.0-98.0); Mean Platelet Volume 7.3 fL (7.4-10.4); Platelet Count 207 thou/uL (130-400); RBC Distribution Width 13.4 % (11.5-14.5); Red Blood Cell (RBC) Count 4.82 mill/uL (4.20-5.40); White Blood Cell (WBC) Count 11.8 thou/uL (4.8-10.8)
[2021-08-09 06:22] LABS: Anion Gap 13 mmol/L (10-20); BUN (Urea Nitrogen) 35 mg/dL (9.8-20.1); Calc. Creatinine Clearance 73 mL/min (70-130); Calcium 9.3 mg/dL (7.8-10.44); Carbon Dioxide 32 mmol/L (23-31); Chloride 97 mmol/L (98-107); Glucose 195 mg/dL (80-115); Potassium 5.5 mmol/L (3.5-5.1); Sodium 136 mmol/L (136-145)
[2021-08-09] MEDS: Furosemide 40 MG TAB PO SCH (07:34)
[2021-08-09] MEDS: Enoxaparin Sodium 40 MG/0.4 ML SYRINGE SC SCH (09:06)
[2021-08-09] MEDS: Amlodipine 10 MG TAB PO SCH (09:06)
[2021-08-09] MEDS: Famotidine 20 MG TAB PO SCH ×2 (09:07→20:21)
[2021-08-09] MEDS: Lisinopril 20 MG TAB PO SCH (09:07)
[2021-08-09] MEDS: Nicotine 21 MG PATCH TD SCH (15:45)
[2021-08-09] MEDS: Mometasone 200 MCG/Formoterol 5 MCG 120 PUFF INHALER INH SCH (18:39)
[2021-08-09] MEDS: Cilostazol 100 MG TAB PO SCH (20:21)
[2021-08-09] MEDS: Atorvastatin Calcium 40 MG TAB PO SCH (20:21)
[2021-08-09] MEDS: Mag-Al Plus 1200 MG/1200 MG/120 MG/30 ML UDCUP PO PRN (22:03)
[2021-08-10] MEDS: Mag-Al Plus 1200 MG/1200 MG/120 MG/30 ML UDCUP PO PRN (03:49)
[2021-08-10 06:08] LABS: Hemoglobin 13.1 g/dL (12.0-16.0); Mean Corpuscular Hemoglobin 29.7 pg (27.0-31.0); Mean Corpuscular Volume 92.9 fL (78.0-98.0); Mean Platelet Volume 7.1 fL (7.4-10.4); Platelet Count 222 thou/uL (130-400); RBC Distribution Width 13.2 % (11.5-14.5); Red Blood Cell (RBC) Count 4.42 mill/uL (4.20-5.40); White Blood Cell (WBC) Count 10.7 thou/uL (4.8-10.8)
[2021-08-10 06:24] LABS: Anion Gap 11 mmol/L (10-20); BUN (Urea Nitrogen) 25 mg/dL (9.8-20.1); Calc. Creatinine Clearance 86 mL/min (70-130); Calcium 9.2 mg/dL (7.8-10.44); Carbon Dioxide 37 mmol/L (23-31); Chloride 95 mmol/L (98-107); Glucose 258 mg/dL (80-115); Potassium 5.3 mmol/L (3.5-5.1); Sodium 138 mmol/L (136-145)
[2021-08-10] MEDS: HumaLOG 300 UNITS/3 ML VIAL SC PRN ×4 (06:26→21:17)
[2021-08-10] MEDS: Furosemide 40 MG TAB PO SCH (06:32)
[2021-08-10] MEDS: Mometasone 200 MCG/Formoterol 5 MCG 120 PUFF INHALER INH SCH ×2 (07:12→19:11)
[2021-08-10] MEDS: Famotidine 20 MG TAB PO SCH ×2 (08:56→20:49)
[2021-08-10] MEDS: Enoxaparin Sodium 40 MG/0.4 ML SYRINGE SC SCH (08:56)
[2021-08-10] MEDS: methylPREDNISolone Sod Succ 40 MG VIAL IVP SCH ×2 (08:56→20:50)
[2021-08-10] MEDS: Amlodipine 10 MG TAB PO SCH (08:57)
[2021-08-10] MEDS ORDERED: methylPREDNISolone Sod Succ 40 MG VIAL IVP SCH (11:30)
[2021-08-10] MEDS: Nicotine 21 MG PATCH TD SCH (15:36)
[2021-08-10] MEDS ORDERED: glipiZIDE 5 MG TAB PO SCH (16:45)
[2021-08-10] MEDS: Cilostazol 100 MG TAB PO SCH (20:49)
[2021-08-10] MEDS: Atorvastatin Calcium 40 MG TAB PO SCH (20:49)
[2021-08-11 03:59] LABS: #Lymphocytes 0.8 thou/uL (1.20-3.40); #Monocytes 0.7 thou/uL (0.11-0.59); #Neutrophils 6.5 thou/uL (1.40-6.50); %Eosinophils 0.2 % (0.0-10.0); %Lymphocytes 10.4 % (21.0-51.0); %Monocytes 9.2 % (0.0-10.0); %Neutrophils 80.2 % (42.0-75.0); Hemoglobin 14.3 g/dL (12.0-16.0); Mean Corpuscular HGB CONC 31.2 g/dL (32.0-36.0); Mean Corpuscular Hemoglobin 28.7 pg (27.0-31.0); Mean Corpuscular Volume 91.9 fL (78.0-98.0); Mean Platelet Volume 6.8 fL (7.4-10.4); Platelet Count 216 thou/uL (130-400); RBC Distribution Width 13.1 % (11.5-14.5); Red Blood Cell (RBC) Count 4.98 mill/uL (4.20-5.40); White Blood Cell (WBC) Count 8.1 thou/uL (4.8-10.8)
[2021-08-11 05:08] LABS: BUN (Urea Nitrogen) 19 mg/dL (9.8-20.1); Calc. Creatinine Clearance 92 mL/min (70-130); Calcium 9.4 mg/dL (7.8-10.44); Glucose 202 mg/dL (80-115); Magnesium 2.8 mg/dL (1.6-2.6)
[2021-08-11 05:19] LABS: Anion Gap 16 mmol/L (10-20); Carbon Dioxide 37 mmol/L (23-31); Chloride 91 mmol/L (98-107); Sodium 139 mmol/L (136-145)
[2021-08-11 05:27] LABS: Phosphorus 1.6 mg/dL (2.3-4.7)
[2021-08-11] MEDS ORDERED: Electrolyte Replacement Protocol 1 EACH FS PRN (05:41)
[2021-08-11] MEDS ORDERED: Sodium Phosphate 15 MMOL in Sodium Chloride 0.9% 250 ML 250 ML IVPB SCH (06:00)
[2021-08-11] MEDS: HumaLOG 300 UNITS/3 ML VIAL SC PRN ×3 (06:42→21:35)
[2021-08-11] MEDS: Mometasone 200 MCG/Formoterol 5 MCG 120 PUFF INHALER INH SCH ×2 (07:27→18:46)
[2021-08-11] MEDS ORDERED: glipiZIDE 5 MG TAB PO SCH (07:30)
[2021-08-11] MEDS: Furosemide 40 MG TAB PO SCH (08:34)
[2021-08-11] MEDS: Enoxaparin Sodium 40 MG/0.4 ML SYRINGE SC SCH (08:34)
[2021-08-11] MEDS: glipiZIDE 5 MG TAB PO SCH ×2 (08:34→16:16)
[2021-08-11] MEDS: Amlodipine 10 MG TAB PO SCH (08:34)
[2021-08-11] MEDS: Famotidine 20 MG TAB PO SCH ×2 (08:34→21:35)
[2021-08-11] MEDS: methylPREDNISolone Sod Succ 40 MG VIAL IVP SCH ×2 (08:35→21:34)
[2021-08-11] MEDS: Nicotine 21 MG PATCH TD SCH (14:42)
[2021-08-11] MEDS: Doxycycline 100 MG CAP PO SCH (21:35)
[2021-08-11] MEDS: Atorvastatin Calcium 40 MG TAB PO SCH (21:35)
[2021-08-11] MEDS: Cilostazol 100 MG TAB PO SCH (21:35)
[2021-08-12] MEDS: HumaLOG 300 UNITS/3 ML VIAL SC PRN ×4 (04:59→21:07)
[2021-08-12 05:47] LABS: #Lymphocytes 0.8 thou/uL (1.20-3.40); #Monocytes 0.6 thou/uL (0.11-0.59); #Neutrophils 6.3 thou/uL (1.40-6.50); %Basophils 0.4 % (0.0-1.0); %Eosinophils 0.2 % (0.0-10.0); %Lymphocytes 10.2 % (21.0-51.0); %Monocytes 7.5 % (0.0-10.0); %Neutrophils 81.7 % (42.0-75.0); Hemoglobin 15.1 g/dL (12.0-16.0); Mean Corpuscular HGB CONC 31.5 g/dL (32.0-36.0); Mean Corpuscular Hemoglobin 28.9 pg (27.0-31.0); Mean Corpuscular Volume 91.8 fL (78.0-98.0); Mean Platelet Volume 6.9 fL (7.4-10.4); Platelet Count 239 thou/uL (130-400); RBC Distribution Width 13.1 % (11.5-14.5); Red Blood Cell (RBC) Count 5.24 mill/uL (4.20-5.40); White Blood Cell (WBC) Count 7.7 thou/uL (4.8-10.8)
[2021-08-12 06:20] LABS: BUN (Urea Nitrogen) 21 mg/dL (9.8-20.1); Calc. Creatinine Clearance 76 mL/min (70-130); Calcium 9.6 mg/dL (7.8-10.44); Glucose 278 mg/dL (80-115)
[2021-08-12 06:23] LABS: Phosphorus 2.6 mg/dL (2.3-4.7)
[2021-08-12 06:29] LABS: Anion Gap 18 mmol/L (10-20); Carbon Dioxide 38 mmol/L (23-31); Chloride 87 mmol/L (98-107); Potassium 4.4 mmol/L (3.5-5.1); Sodium 139 mmol/L (136-145)
[2021-08-12] MEDS: Mometasone 200 MCG/Formoterol 5 MCG 120 PUFF INHALER INH SCH ×2 (07:30→19:30)
[2021-08-12] MEDS: Amlodipine 10 MG TAB PO SCH (08:28)
[2021-08-12] MEDS: Famotidine 20 MG TAB PO SCH (08:28)
[2021-08-12] MEDS: Doxycycline 100 MG CAP PO SCH ×2 (08:28→21:07)
[2021-08-12] MEDS: glipiZIDE 5 MG TAB PO SCH ×2 (08:28→15:20)
[2021-08-12] MEDS: Furosemide 40 MG TAB PO SCH (08:28)
[2021-08-12] MEDS: methylPREDNISolone Sod Succ 40 MG VIAL IVP SCH (08:28)
[2021-08-12] MEDS: Enoxaparin Sodium 40 MG/0.4 ML SYRINGE SC SCH (08:29)
[2021-08-12] MEDS: Mag-Al Plus 1200 MG/1200 MG/120 MG/30 ML UDCUP PO PRN (11:55)
[2021-08-12] MEDS: Nicotine 21 MG PATCH TD SCH (15:20)
[2021-08-12] MEDS: predniSONE 20 MG TAB PO SCH (17:10)
[2021-08-12] MEDS: Cilostazol 100 MG TAB PO SCH (21:07)
[2021-08-12] MEDS: Atorvastatin Calcium 40 MG TAB PO SCH (21:07)
[2021-08-13] MEDS: HumaLOG 300 UNITS/3 ML VIAL SC PRN ×3 (05:46→16:45)
[2021-08-13] MEDS: Mometasone 200 MCG/Formoterol 5 MCG 120 PUFF INHALER INH SCH (07:35)
[2021-08-13] MEDS: Doxycycline 100 MG CAP PO SCH (08:33)
[2021-08-13] MEDS: Enoxaparin Sodium 40 MG/0.4 ML SYRINGE SC SCH (08:33)
[2021-08-13] MEDS: Furosemide 40 MG TAB PO SCH (08:33)
[2021-08-13] MEDS: predniSONE 20 MG TAB PO SCH ×2 (08:34→16:43)
[2021-08-13] MEDS: glipiZIDE 5 MG TAB PO SCH ×2 (08:34→16:43)
[2021-08-13] MEDS: Amlodipine 10 MG TAB PO SCH (08:34)
[2021-08-13] MEDS ORDERED: Lantus 1000 UNITS/10 ML VIAL SC SCH (09:00)
[2021-08-13 16:14] VITALS: BP 129/67; TEMP 98.1
[2021-08-13] MEDS: Nicotine 21 MG PATCH TD SCH (16:43)
== END 2021-08-13 17:55 | disposition home health service (06) | DRG 189 ==
LOC: ERS 12:14 → CCU 16:08 → IMCU/EMU 08-09 16:55 → T4-B 08-11 15:29
PROVIDERS: ADMIT Internal Medicine; ATTEND Internal Medicine
PROC: 5A09457 Assistance with Respiratory Ventilation, 24-96 Consecutive Hours, Continuous Positive Airway Pressure (ICD-10-PCS; principal; 2021-08-07)
PROC: 3E03329 Introduction of Other Anti-infective into Peripheral Vein, Percutaneous Approach (ICD-10-PCS; 2021-08-07)
PROC: 5A0935A Assistance with Respiratory Ventilation, Less than 24 Consecutive Hours, High Flow/Velocity Cannula (ICD-10-PCS; 2021-08-09)
DX: J96.21 Acute and chronic respiratory failure with hypoxia (principal); J44.1 Chronic obstructive pulmonary disease with (acute) exacerbation; I50.32 Chronic diastolic (congestive) heart failure; I13.0 Hypertensive heart and chronic kidney disease with heart failure and stage 1 through stage 4 chronic kidney disease, or unspecified chronic kidney disease; Z20.822 Contact with and (suspected) exposure to COVID-19; J96.22 Acute and chronic respiratory failure with hypercapnia; E78.5 Hyperlipidemia, unspecified; E78.00 Pure hypercholesterolemia, unspecified; F17.210 Nicotine dependence, cigarettes, uncomplicated; E11.51 Type 2 diabetes mellitus with diabetic peripheral angiopathy without gangrene; N18.2 Chronic kidney disease, stage 2 (mild); E11.22 Type 2 diabetes mellitus with diabetic chronic kidney disease; D72.829 Elevated white blood cell count, unspecified; T38.0X5A Adverse effect of glucocorticoids and synthetic analogues, initial encounter; E87.5 Hyperkalemia; E83.39 Other disorders of phosphorus metabolism; Z28.21 Immunization not carried out because of patient refusal; Z88.6 Allergy status to analgesic agent; Z88.5 Allergy status to narcotic agent; Z88.0 Allergy status to penicillin; Z79.899 Other long term (current) drug therapy; Z79.82 Long term (current) use of aspirin; Z79.84 Long term (current) use of oral hypoglycemic drugs; Z71.6 Tobacco abuse counseling
CPT/HCPCS: 36415; 36416; 36600; 51701; 71045; 80048; 80053; 81003; 81015; 82553; 82805; 83605; 83735; 83880; 84100; 84484; 85025; 85027; 87040; 87086; 93005; 94640; 94660; 96374; 96375; J0456; J0696; J1650; J1815; J2920; J2930; J3490; J7050; J7512; J7620; U0002; U0003; U0005

== ENCOUNTER 2021-11-05 07:50 | Outpatient (CLI) | payer MEDICARE | END 2021-11-05 07:51 | disposition home or self-care (01) | LOC: BICMAMMO 07:50 | PROVIDERS: ATTEND Nurse Practitioner Family | DX: Z12.31 Encounter for screening mammogram for malignant neoplasm of breast (principal) | CPT/HCPCS: 77063; 77067 ==

== ENCOUNTER 2022-03-16 19:48 | Emergency (ER) | payer OTHER, MEDICARE ==
[2022-03-17] MEDS ORDERED: Fentanyl 100 MCG/2 ML VIAL ONE (00:08)
== END 2022-03-17 00:32 | disposition home or self-care (01) ==
LOC: ERS 19:48
DX: S82.001A Unspecified fracture of right patella, initial encounter for closed fracture (principal); W18.30XA Fall on same level, unspecified, initial encounter; Y92.009 Unspecified place in unspecified non-institutional (private) residence as the place of occurrence of the external cause
CPT/HCPCS: 71045; 96372; J3010